=== PATIENT | male | born 1960 | race Caucasian/White ===

== ENCOUNTER 2020-12-04 15:14 | Outpatient (REF) | payer OTHER, SELFPAY | END 2020-12-04 15:15 | disposition home or self-care (01) | LOC: HO.BBR 15:14 | PROVIDERS: PCP Internal Medicine; Visit Provider Internal Medicine | DX: Z13.89 Encounter for screening for other disorder (principal) ==

== ENCOUNTER 2020-12-04 15:39 | Outpatient (REF) | payer OTHER, SELFPAY | END 2020-12-04 15:40 | disposition home or self-care (01) | LOC: HO.BBR 15:39 | PROVIDERS: PCP Internal Medicine; Visit Provider Internal Medicine | DX: Z13.89 Encounter for screening for other disorder (principal) ==

== ENCOUNTER 2021-01-02 14:31 | Outpatient (REF) | payer OTHER, SELFPAY | END 2021-01-02 14:32 | disposition home or self-care (01) | LOC: HO.BBR 14:31 | PROVIDERS: Visit Provider Internal Medicine | DX: Z13.89 Encounter for screening for other disorder (principal) ==

== ENCOUNTER 2021-02-06 15:23 | Outpatient (REF) | payer OTHER, SELFPAY | END 2021-02-06 15:24 | disposition home or self-care (01) | LOC: HO.BBR 15:23 | PROVIDERS: Visit Provider Internal Medicine | DX: Z13.89 Encounter for screening for other disorder (principal) ==

== ENCOUNTER 2021-03-30 13:04 | Outpatient (REF) | payer OTHER, SELFPAY | END 2021-03-30 13:05 | disposition home or self-care (01) | LOC: HO.BBR 13:04 | PROVIDERS: Visit Provider Internal Medicine | DX: Z13.89 Encounter for screening for other disorder (principal) ==

== ENCOUNTER 2021-04-25 12:08 | Outpatient (REF) | payer OTHER, SELFPAY | END 2021-04-25 12:09 | disposition home or self-care (01) | LOC: HO.BBR 12:08 | PROVIDERS: Visit Provider Internal Medicine | DX: Z13.89 Encounter for screening for other disorder (principal) ==

== ENCOUNTER 2021-05-23 11:49 | Outpatient (REF) | payer OTHER, SELFPAY | END 2021-05-23 11:50 | disposition home or self-care (01) | LOC: HO.BBR 11:49 | PROVIDERS: Visit Provider Internal Medicine | DX: Z13.89 Encounter for screening for other disorder (principal) ==

== ENCOUNTER 2021-07-04 13:04 | Outpatient (REF) | payer OTHER, SELFPAY | END 2021-07-04 13:05 | disposition home or self-care (01) | LOC: HO.BBR 13:04 | PROVIDERS: Visit Provider Internal Medicine | DX: Z13.89 Encounter for screening for other disorder (principal) ==

== ENCOUNTER 2021-08-01 11:08 | Outpatient (REF) | payer OTHER, SELFPAY | END 2021-08-01 11:09 | disposition home or self-care (01) | LOC: HO.BBR 11:08 | PROVIDERS: Visit Provider Internal Medicine | DX: Z13.89 Encounter for screening for other disorder (principal) ==

== ENCOUNTER 2022-02-20 14:55 | Outpatient (REF) | payer OTHER, SELFPAY | END 2022-02-20 14:56 | disposition home or self-care (01) | LOC: HO.BBR 14:55 | PROVIDERS: Visit Provider Internal Medicine | DX: D75.1 Secondary polycythemia (principal) | CPT/HCPCS: 85014; 85018; 99195 ==

== ENCOUNTER 2022-03-01 10:51 | Outpatient (REF) | payer OTHER, SELFPAY | END 2022-03-01 10:52 | disposition home or self-care (01) | LOC: HO.BBR 10:51 | PROVIDERS: Visit Provider Internal Medicine | DX: D75.1 Secondary polycythemia (principal) | CPT/HCPCS: 85018; 99195 ==

== ENCOUNTER 2022-03-08 15:07 | Outpatient (REF) | payer OTHER, SELFPAY | END 2022-03-08 15:08 | disposition home or self-care (01) | LOC: HO.BBR 15:07 | PROVIDERS: Visit Provider Internal Medicine | DX: D75.1 Secondary polycythemia (principal) | CPT/HCPCS: 85014; 85018; 99195 ==

== ENCOUNTER 2022-03-13 10:50 | Outpatient (REF) | payer OTHER, SELFPAY | END 2022-03-13 10:51 | disposition home or self-care (01) | LOC: HO.BBR 10:50 | PROVIDERS: Visit Provider Internal Medicine | DX: D75.1 Secondary polycythemia (principal) | CPT/HCPCS: 85018; 99195 ==

== ENCOUNTER 2022-03-21 07:54 | Outpatient (REF) | payer OTHER, SELFPAY | END 2022-03-21 07:55 | disposition home or self-care (01) | LOC: HO.BBR 07:54 | PROVIDERS: Visit Provider Internal Medicine | DX: D75.1 Secondary polycythemia (principal) | CPT/HCPCS: 85018; 99195 ==

== ENCOUNTER 2022-04-29 10:47 | Outpatient (REF) | payer OTHER, SELFPAY | END 2022-04-29 10:48 | disposition home or self-care (01) | LOC: HO.BBR 10:47 | PROVIDERS: Visit Provider Internal Medicine | DX: D75.1 Secondary polycythemia (principal) | CPT/HCPCS: 85018; 99195 ==

== ENCOUNTER 2022-05-21 13:41 | Outpatient (REF) | payer OTHER, SELFPAY | END 2022-05-21 13:42 | disposition home or self-care (01) | LOC: HO.BBR 13:41 | PROVIDERS: Visit Provider Internal Medicine | DX: D75.1 Secondary polycythemia (principal) | CPT/HCPCS: 85014; 85018; 99195 ==

== ENCOUNTER 2022-06-05 13:57 | Outpatient (REF) | payer OTHER, SELFPAY | END 2022-06-05 13:58 | disposition home or self-care (01) | LOC: HO.BBR 13:57 | PROVIDERS: Visit Provider Internal Medicine | DX: D75.1 Secondary polycythemia (principal) | CPT/HCPCS: 85014; 85018; 99195 ==

== ENCOUNTER 2023-02-04 11:06 | Outpatient (REF) | payer OTHER, SELFPAY | END 2023-02-04 11:07 | disposition home or self-care (01) | LOC: HO.BBR 11:06 | PROVIDERS: Visit Provider Internal Medicine | DX: D75.1 Secondary polycythemia (principal) | CPT/HCPCS: 85014; 85018; 99195 ==

== ENCOUNTER 2024-02-10 15:35 | Outpatient (REF) | payer MEDICARE, OTHER, SELFPAY | END 2024-02-10 15:36 | disposition home or self-care (01) | LOC: HO.BBR 15:35 | PROVIDERS: PCP Internal Medicine; Visit Provider Internal Medicine | DX: D75.1 Secondary polycythemia (principal) | CPT/HCPCS: 85014; 85018; 99195 ==

== ENCOUNTER 2024-04-05 13:50 | Outpatient (REF) | payer MEDICARE, OTHER, SELFPAY | END 2024-04-05 13:51 | disposition home or self-care (01) | LOC: HO.BBR 13:50 | PROVIDERS: PCP Internal Medicine; Visit Provider Internal Medicine | DX: D75.1 Secondary polycythemia (principal) | CPT/HCPCS: 85018; 99195 ==

== ENCOUNTER 2024-05-03 11:00 | Outpatient (REF) | payer MEDICARE, OTHER, SELFPAY | END 2024-05-03 11:01 | disposition home or self-care (01) | LOC: HO.BBR 11:00 | PROVIDERS: PCP Internal Medicine; Visit Provider Internal Medicine | DX: E83.110 Hereditary hemochromatosis (principal) | CPT/HCPCS: 85014; 85018; 99195 ==

== ENCOUNTER 2024-06-01 10:59 | Outpatient (REF) | payer MEDICARE, OTHER, SELFPAY | END 2024-06-01 11:00 | disposition home or self-care (01) | LOC: HO.BBR 10:59 | PROVIDERS: PCP Internal Medicine; Visit Provider Internal Medicine | DX: E83.110 Hereditary hemochromatosis (principal) | CPT/HCPCS: 85014; 85018; 99195 ==

== ENCOUNTER 2024-06-29 12:56 | Outpatient (REF) | payer MEDICARE, OTHER, SELFPAY ==
--- OUTSIDE RECORDS SUMMARY | 2024-06-29 14:05 | XMS_ITS | Clinical Summary ---
Author Organization [facility] ter Address [address] [place] [address] Phone Care Team Providers Care Garden Implement Mechanic Name Role Phone Ulysses Escalante MD Primary Care Provider Medical History Medical History Date Comments JD on CPAP DX:JD on CPAP Social History Tobacco Use Types Packs/Day Years Used Date Smoking Tobacco: Never Assessed Sex and Gender Information Value Date Recorded Sex Assigned at Male 04/30/2024 7:13 PM EST Legal Sex Male 8:02 AM EST Gender Identity Male 04/30/2024 7:13 PM EST Sexual Orientation Not on file Obstetrics History Last Filed Vital Signs Vital Sign Reading Time Taken Comments Blood Pressure 148/66 01/05/2024 1:53 PM EDT Sitting Left arm Pulse 85 01/05/2024 1:53 PM EDT Temperature - - Respiratory Rate - - Oxygen Saturation - - Inhaled Oxygen Concentration - - Weight 118 kg (259 lb 12.8 oz) 01/05/2024 1:53 PM EDT Height 180.3 cm (5' 11 ) 04/02/2022 10: 34 AM EST Body Mass Index 36.23 04/02/2022 10:34 AM EST Plan of Treatment Health Maintenance Due Date Last Done Comments Diabetes: Annual GFR (Glomerular Filtration Rate) 1958 DTaP,Tdap,and Td Vaccines (1 - Tdap) 1965 Diabetes: Annual Foot Exam 1968 Diabetes: Annual Retina Eye Exam 1968 Pneumococcal Vaccine: 50+ Years (1 of 2 - PCV) 1977 Pneumococcal Vaccine: Pediatrics (0 to 5 Years) and At-Risk Patients (6 to 64 Years) (1 of 2 - PCV) 1977 RSV Immunization Patients 60 + Years Old (1 - Risk 60-74 years 1-dose series) 2018 COVID-19 Vaccine (3 - Modern a risk series) 03/12/2021 02/12/2021, 01/09/2021 Cholesterol Screening (Lipid Panel) 04/27/2022 Colorectal Cancer Screening: Colonoscopy 04/27/2022 Depression Screening 04/27/2022 Hepatitis C Screening 04/27/2022 Medicare Annual Wellness Visit 04/27/2022 Social Influencers of Health Screening 04/27/2022 Falls Risk Assessment 10/28/2023 Influenza Vaccine (#1) 2024 3, 02/19/2022, 04/23/2021 Diabetes: Blood Sugar Contro l Test (HGBA1C) 04/28/2024 Hypertension/CHF/CAD Annual BMP Blood Test 04/28/2024 Diabetes: Annual Urine Albumin-Creatinine Ratio (uACR) 12/20/2024 12/21/2023 Zoster Vaccines Completed 02/19/2022, 11/21/2021 HIB Vaccines Aged Out No longer eligi ble based on patient's age to complete this topic HPV Vaccines Aged Out No longer eligi ble based on patient's age to complete this topic Hepatitis A Vaccines Aged Out No long er eligible based on patient's age to complete this topic Hepatitis B Vaccines Aged Out No long er eligible based on patient's age to complete this topic IPV Vaccines Aged Out No longer eligi ble based on patient's age to complete this topic MMR Vaccines Aged Out No longer eligi ble based on patient's age to complete this topic Meningococcal ACWY Vaccine Aged Out N o longer eligible based on patient's age to complete this topic Meningococcal B Vacine Aged Out No lo nger eligible based on patient's age to complete this topic RSV Immunization Patients Under 20 months Aged Out No longer eligible b ased on patient's age to complete this topic Varicella Vaccines Aged Out No longer eligible based on patient's age to complete this topic Procedures Procedure Name Priority Date/Time Associated Diagnosis Comments CBC WITH AUTO DIFFERENTIAL Routine 04/27/2024 2:04 PM EST Erythrocytosis CBC AND DIFFERENTIAL Routine 04/27/2024 2:04 PM EST Erythrocytosis from Last 3 Months Results * (ABNORMAL) CBC auto differential (04/27/2024 2:04 PM EST) [facility] WBC 7.4 4.8 - 10.8 K/mcL LAB HEMETOLOGY METHOD 04/27/2024 5:11 PM [facility] RBC 6.10(H) 4.50 - 5.50 M/mcL LAB HEMETOLOGY METHOD 04/27/2024 5:11 PM [facility] Hemoglobin 18.0(H) 13.5 - 17.5 g/dL LAB HEMETOLOGY METHOD 04/27/2024 5:11 PM [facility] Hematocrit 55.8(H) 42.0 - 54.0 % LAB HEMETOLOGY METHOD 04/27/2024 5:11 PM [facility] MCV 92.2 79.0 - 98.0 FL LAB HEMETOLOGY METHOD 04/27/2024 5:11 PM [facility] MCH 29.8 27.0 - 32.0 pcg LAB HEMETOLOGY METHOD 04/27/2024 5:11 PM [facility] MCHC 32.3 32.0 - 37.0 g/dL LAB HEMETOLOGY METHOD 04/27/2024 5:11 PM [facility] RDW 15.0 11.0 - 15.0 % LAB HEMETOLOGY METHOD 04/27/2024 5:11 PM [facility] Platelets 163 130 - 400 K/mcL LAB HEMETOLOGY METHOD 04/27/2024 5:11 PM [facility] MPV 11.4(H) 7.0 - 11.0 FL LAB HEMETOLOGY METHOD 04/27/2024 5:11 PM [facility] NRBC 0.0 <1.0 % LAB HEMETOLOGY METHOD 04/27/2024 5:11 PM [facility] NRBC Absolute 0.00 <0.10 K/mcL LAB HEMETOLOGY METHOD 04/27/2024 5:11 PM [facility] Neutrophils Relative 67.4 % LAB HEMETOLOGY METHOD 04/27/2024 5:11 PM [facility] Lymphocytes Relative 19.8 % LAB HEMETOLOGY METHOD 04/27/2024 5:11 PM [facility] Monocytes Relative 9.0 % LAB HEMETOLOGY METHOD 04/27/2024 5:11 PM [facility] Eosinophils Relative 2.2 % LAB HEMETOLOGY METHOD 04/27/2024 5:11 PM [facility] Basophils Relative 0.8 % LAB HEMETOLOGY METHOD 04/27/2024 5:11 PM [facility] Immature Granulocytes Relative 0.8 % LAB HEMETOLOGY METHOD 04/27/2024 5:11 PM [facility] Neutrophils Absolute 4.97 1.50 - 7.00 K/mcL LAB HEMETOLOGY METHOD 04/27/2024 5:11 PM [facility] Lymphocytes Absolute 1.46 1.00 - 5.00 K/mcL LAB HEMETOLOGY METHOD 04/27/2024 5:11 PM [facility] Monocytes Absolute 0.66 0.20 - 1.00 K/mcL LAB HEMETOLOGY METHOD 04/27/2024 5:11 PM [facility] Eosinophils Absolute 0.16 0.00 - 0.50 K/mcL LAB HEMETOLOGY METHOD 04/27/2024 5:11 PM [facility] Basophils Absolute 0.06 0.00 - 0.20 K/mcL LAB HEMETOLOGY METHOD 04/27/2024 5:11 PM [facility] Immature Granulocytes Absolute 0.06(H) 0.00 - 0.03 K/mcL LAB HEMETOLOGY METHOD 04/27/2024 5:11 PM EST [facility] Blood Venous blood specimen / Unknown Venipuncture / Unknown 04/27/2024 2:04 PM EST 04/27/2024 4:39 PM EST Santos Holt MD LAB BLOOD ORDERABLE S Final Result [facility] [address] [place] [address], [place] [phone] from Last 3 Months Insurance MEDICARE [facility] Care Teams Garden Implement Mechanic Relationship Specialty Start Date End Date Ulysses Escalante MD [address] [place] [phone] PCP - General Internal Medicine 10/05/13
--- OUTSIDE RECORDS SUMMARY | 2024-06-29 14:05 | XMS_ITS | Clinical Summary ---
Author Organization [facility] Address [address] [place] [address] Care Team Providers Care Health Workers Name Role Phone Ulysses Escalante MD Primary Care Provider Allergies Active Allergy Reactions Criticality Noted Date Comments Pollen Extract 06/13/2017 Medications Medication Sig Dispensed Refills Start Date End Date Status metFORMIN (GLUCOPHAGE) tablet 500 mg Take 2 tablets (1,000 mg total) by mouth 2 (two) times a day with meals. 0 Active insulin glargine (LANTUS) injection 100 units/mL Inject 60 Units under the skin every night at bedtime. 0 Active insulin NPH (HumuLIN N,NovoLIN N) injection 100 units/mL Inject 40 Units under the skin 2 (two) times a day before breakfast and dinner. 0 Active pravastatin (PRAVACHOL) tablet 40 mg Take 1 tablet (40 mg total) by mouth daily. 0 Active Multiple Vitamin (MULTI VITAMIN DAILY PO) Take by mouth daily. 0 Active losartan (COZAAR) tablet 50 mg Take 0.5 tablets (25 mg total) by mouth daily. 0 Active aspirin 325 MG tablet Take 1 tablet (325 mg total) by mouth daily. 0 Active Diphenhydramine-Phenyl ephrine ([employer] ALLERGY-D PO) Take by mouth daily. 0 Active Multiple Minerals (UTLKSFF-WMTECUTBN-ARK C) TABS Take 371 mg by mouth 2 (two) times a day. 0 Active dapagliflozin (FARXIGA) tablet 5 mg Take 5 mg by mouth daily. 0 Active modafinil (PROVIGIL) 200 MG tablet Take 1 tablet (200 mg total) by mouth daily. 0 Active dulaglutide (Trulicity) 1.5 MG/0.5ML subcutaneous pen-injector Inject under the skin. 0 Active Semaglutide (OZEMPIC, 1 MG/DOSE, SC) Inject under the skin. 0 Active insulin lispro (HumaLOG) injection 100 units/mL Inject 35 Units under the skin 3 (three) times a day before meals. 35-45 units 0 Active Cyanocobalamin (VITAMIN B 12 PO) Take by mouth. 0 Act selma Active Problems Problem Noted Date Diagnosed Date Low serum iron 05/05/2023 Erythrocytosis 06/14/2019 Obstructive sleep apnea 06/14/2019 Polycythemia vera 06/14/2019 Social History Tobacco Use Types Packs/Day Years Used Date Smoking Tobacco: Never Assessed Tobacco Cessation:Counseling Given: Not Answered Sex and Gender Information Value Date Recorded Sex Assigned at Not on file Gender Identity Not on file Sexual Orientation Not on file Job Start Date Occupation Industry Not on file Not on file Not on file Last Filed Vital Signs Vital Sign Reading Time Taken Comments Blood Pressure 148/66 01/05/2024 1:53 PM EDT Pulse 85 01/05/2024 1:53 PM EDT Temperature 36.5 ??C (97.7 ??F) 01/05/2024 1:53 PM ED T Respiratory Rate - - Oxygen Saturation 97% 01/05/2024 1:53 PM EDT Inhaled Oxygen Concentration - - Weight 117.8 kg (259 lb 12.8 oz) 01/05/2024 1:53 PM EDT Height 180.3 cm (5' 11 ) 12/06/2020 2:54 PM EDT Body Mass Index 36.23 12/06/2020 2:54 PM EDT Plan of Treatment Health Maintenance Due Date Last Done Comments Hepatitis C Screening 1958 COVID-19 Vaccine (#1) 10/28/1963 Pneumococcal Vaccine (1 of 2 - PCV) 1964 Pneumococcal Vaccine (1 of 2 - PCV) 1964 Depression Screening 1970 BMI Counseling 1976 Preventative Health Evaluation 1976 DTap / Tdap / Td (1 - Tdap) 1977 Shingrix-Zoster Vaccine (1 of 2) 1977 Colon Cancer Screening (Colonoscopy) 10/28/2003 Fall Risk Assessment 10/28/2023 Influenza Vaccine (#1) 2024 RSV Adult > 60+ Yrs or Pregn ant (1 - 1-dose 75+ series) 2033 Hepatitis B Vaccines Aged Out No long er eligible based on patient's age to complete this topic RSV Ped < 20 months Aged Out No longe r eligible based on patient's age to complete this topic Care Teams Health Workers Relationship Specialty Start Date End Date Ulysses Escalante MD PCP - General Internal Medicine 04/24/17
--- OUTSIDE RECORDS SUMMARY | 2024-06-29 14:05 | XMS_ITS | Data Portability ---
Author Organization [facility], Patient's Home Address [address] [facility] [place] [id number] [place] [address] Care Team Providers Care Health Safety Manager Name Role Phone ANDRESSA REESE Primary Care Provider MARIEL BELTRAN [employer] Age Program Teacher Assessment No assessment recorded. Plan of Treatment Reminders Order Date Submit Date Provider Last Modified By Organization Details Last Modified Time Details Appointments None record ed. Lab None record ed. Referral None record ed. Procedures None record ed. Surgeries None record ed. Imaging None record ed. Medication Orders None record ed. Patient TargetsNo targets recorded. Patient InstructionsNo instructions recorded. Reason for Referral None Reported. Results Created Date Observation Date Name Description Value Unit Range Abnormal Flag Note LastModifiedBy Organization Detail LastModifiedTime 11/13/19 24 11/12/2023 optic al coher ence tomog angelique, optic nerve No observ ation record ed. [email or web address] Not Available 11/12 10:32:03 Result Notes None recorded. Procedures Surgical History Date Name Laterality Status Provider Name and Address Organization Details Recorded Time Retinal Detachment Repair completed Amita Wetzel [facility] 11/12/2023 13:30:21 4 [facility] 11/12/2023 13:30:00 Imaging Results Imaging Date Name Status LastModified by Organiz ation Details LastModified Time 11/12/2023 optical coherence tomogram, optic nerve active [email or web address] Information not available 11/13/2023 10:32:03 Procedure Notes None recorded. Medical Equipment None Reported. Medications Name Sig Start Date Stop Date Status Note LastModified by Organization Details LastModified Time azithromycin 250 mg tablet TAKE 2 TABLETS BY MOUTH TODAY, THEN TAKE 1 TABLET DAILY FOR 4 DAYS DIRECTED active Not Available Not Available No t Available pravastatin 40 mg tablet TAKE 1 TABLET BY MOUTH EVERY DAY active Not Available Not Available No t Available prednisone 20 mg tablet TAKE 3 TABLETS DAILY FOR 2 DAYS THEN 2 FOR 2 DAYS THEN 1 FOR 2 DAYS THEN 0.5 FOR 2 DAYS active Not Available Not Available No t Available doxycycline monohydrate 100 mg tablet PLEASE SEE ATTACHED FOR DETAILED DIRECTIONS active Not Available Not Available N ot Available lorazepam 0.5 mg tablet TAKE 1-2 TABLET AT BEDTIME NEEDED ORALLY ONCE A DAY 1 DAYS active Not Available Not Available No t Available metformin 1,000 mg tablet TAKE 1 TABLET BY MOUTH TWICE A DAY active Not Available Not Available No t Available losartan 25 mg tablet TAKE 1 TABLET BY MOUTH EVERY DAY FOR 90 DAYS active Not Available Not Available No t Available gabapentin 300 mg capsule TAKE 1 CAPSULE BY MOUTH EVERY DAY FOR 30 DAYS active Not Available Not Available No t Available methylpredni solone 4 mg tablets in a dose pack TAKE 6 TABLETS ON DAY 1 DIRECTED ON PACKAGE AND DECREASE BY 1 TAB EACH DAY FOR A TOTAL OF 6 DAYS active Not Available Not Available No t Available ipratropium bromide 42 mcg (0.06 %) nasal spray SPRAY 2 SPRAYS INTO EACH NOSTRIL 3 TIMES A DAY active Not Available Not Available Not Available fluticasone propionate 50 mcg/actuatio n nasal spray,suspen natalee USE 1 SPRAY IN EACH NOSTRIL DAILY NEEDED active Not Available Not Available No t Available clindamycin 1 % lotion PLEASE SEE ATTACHED FOR DETAILED DIRECTIONS active Not Available Not Available N ot Available Novolog FlexPen U-100 Insulin aspart 100 unit/mL (3 mL) subcutaneous PLEASE SEE ATTACHED FOR DETAILED DIRECTIONS active Not Available Not Available N ot Available Lantus Solostar U-100 Insulin 100 unit/mL (3 mL) subcutaneous pen INJECT 60 UNITS UNDER THE SKIN DAILY active Not Available Not Available No t Available armodafinil 250 mg tablet TAKE 1 TABLET BY MOUTH EVERY DAY active Not Available Not Available No t Available testosterone 1.62 % (20.25 mg/1.25 gram) transdermal gel packet PLACE 1 PACKET ONTO THE SKIN DAILY. active Not Available Not Available No t Available Farxiga 5 mg tablet TAKE 1 TABLET BY MOUTH EVERY DAY active Not Available Not Available No t Available FreeStyle Hardik 14 Day Sensor kit USE INSTRUCTED TO MONITOR GLUCOSE, CHANGE EVERY 14 DAYS active Not Available Not Available No t Available Ozempic 1 mg/dose (4 mg/3 mL) subcutaneous pen injector INJECT 1 MG UNDER THE SKIN EVERY 7 DAYS active Not Available Not Available No t Available Paxlovid 300 mg (150 mg x 2)-100 mg tablets in a dose pack TAKE 3 TABLETS BY MOUTH TWICE A DAY FOR 5 DAYS active Not Available Not Available No t Available Ozempic 2 mg/dose (8 mg/3 mL) subcutaneous pen injector INJECT 2 MG SUBCUTANEOU SLY EVERY 7 DAYS active Not Available Not Available No t Available Dexcom G7 Coke Crane Operator USE DIRECTED TO MONITOR GLUCOSE active Not Available Not Available No t Available Dexcom G7 Sensor device USE DIRECTED TO MONITOR GLUCOSE, CHANGE EVERY 10 DAYS active Not Available Not Available No t Available Vitals None Recorded Social History None recorded. Functional Status None recorded. Mental Status None recorded. Family History Nothing Reported. Medical History No medical history recorded. Past Encounters Encounter ID Performer Location Encounter Start Date Encounter Closed Date Diagnosis/Indication Diagnosis SNOMED-CT Code Diagnosis ICD10 Code Diagnosis Note [id number] Vic Anderson MD MAIN OFFICE [place] [address] [facility] [address] [place] [address] 11/12/2023 12:46:00 11/12/2023 14:29:10 Hemorrhage of left vitreous body 8598012032 95789 H43.12 patient saw a hair in left eye 2 months agohad retinal laser x 2 at outside officevisi on has never recovered and hasn't had f/ugood red reflex, retina appears attached but hazy view refer to retina DAPHNIE for evaluation /treatment Amblyopia of right eye 2022379796 09056 H53.001 left eye was always dominant eye 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 9855128176 109 E11.3599 NVE ODunable to view [facility] Concerns Section Related Observation LastModified by Organization Detai ls LastModified Time None Recorded Concern Status LastModified by Organization Details LastModified Time None Recorded Advance Directives Directive None Recorded Payers Encounter Date Sequence Insurance Name Policy Number Policy Ozuna Covered Member ID Ozuna Member ID Guarantor Name 11/12/2023 1 MEDICARE B-[place]: [facility] [employer] Coy Garza [id number] Coy Garza 11/12/2023 2 UNICARE - SENIOR SERVICES PLAN F (MEDICARE SUPPLEMENT) [id number] Coy Garza [id number] Coy Garza
== END 2024-06-29 12:57 | disposition home or self-care (01) ==
LOC: HO.BBR 12:56
PROVIDERS: PCP Internal Medicine; Visit Provider Internal Medicine
DX: E83.110 Hereditary hemochromatosis (principal)
CPT/HCPCS: 85014; 85018; 99195

== ENCOUNTER 2024-07-28 14:46 | Outpatient (REF) | payer MEDICARE, OTHER, SELFPAY ==
--- OUTSIDE RECORDS SUMMARY | 2024-07-28 17:24 | XMS_ITS | Clinical Summary ---
Author Organization [facility] ter Address [address] [place] [address] Phone Care Team Providers Care Desktop Manager Name Role Phone Ulysses Escalante MD Primary Care Provider Encounters Date Type Department Care Team Description 07/20/2024 Telephone [facility] Hematology Oncology [address] [place] [phone] Sylvia Mauro MA from Last 3 Months Medical History Medical History Date Comments JD [...] Diabetes: Annual GFR (Glomerular Filtration Rate) 1958 Diabetes: Annual Foot Exam 1968 Diabetes: Annual Retina Eye Exam 1968 DTaP,Tdap,and Td Vaccines (1 - Tdap) 1977 Pneumococcal Vaccine: 50+ Years (1 of 2 [...] on patient's age to complete this topic Insurance MEDICARE [facility] Care Teams Desktop Manager Relationship Specialty Start Date End Date Ulysses Escalante MD [address] [place] [phone] PCP - General Internal Medicine 10/05/13
--- OUTSIDE RECORDS SUMMARY | 2024-07-28 17:24 | XMS_ITS ---
Author Organization [facility] Address [address] [place] [address] Care Team Providers Care Home Health Occupational Therapist Name Role Phone Ulysses Escalante MD Primary Care Provider Unavail Tanner Art Unavailable [phone] Encounters Encounter Location Date Provider Diagnosis [address] [address] 04/21/2024 Tanner Tamayo Plan Of Treatment Next Appt Details Provider Name:Tanner Tamayo , 10/14/2024 03:45:00 PM, [address] [place] [address], [phone], Progress Notes * Coy LORENZ LDOB:[birth year] (63 yo M)Acc No.[id number]:04/21/2024 Progress Note Patient:?Coy LORENZ Provider:?Tanner Tamayo DPM :1960???Age:63 Y???Sex:Male Ishan e:04/21/2024 Address:[address], [place] Pcp:Ulysses Escalante MD Subjective: * Chief Complaints: * ??? * Medical History:? Objective: * Vitals:? Assessment: Plan: * Treatment: * Images: * The named appointment provid er may or may not be the originator of this progress note, and it is not deemed complete until electronically signed by the appointment provider. Sign off status: Pending * Provider:?Tanner Tamayo DPM Date:?2023 Generated for Wes matthews/Elvia/Mick on:?07/28/2024 05:24 PM EDT
--- OUTSIDE RECORDS SUMMARY | 2024-07-28 17:24 | XMS_ITS | Encounter Summary ---
Author Organization [facility] Address [address] [place] [address] Care Team Providers Care Food Tester Name Role Phone Ulysses Escalante MD Primary Care Provider [phone] Encounter Details Date Type Department Care Team (Late st Contact Info) Description 07/20/[address] [facility] Hematology Oncology [address] [place] [address] Sylvia Mauro [place] Social History Tobacco Use Types Packs/Day Years Used Date Smoking Tobacco: Never Assessed Sex and Gender Information Value Date Recorded Sex Assigned at Male 04/30/2024 7:13 PM EST Legal Sex Male 8:02 AM EST Gender Identity Male 04/30/2024 7:13 PM EST Sexual Orientation Not on file documented as of this encounter Plan of Treatment Not on file documented as of this encounter Visit Diagnoses Not on filedocumented in this encounter Care Teams Food Tester Relationship Specialty Start Date End Date Ulysses Escalante MD [address] [place] [phone] PCP - General Internal Medicine 10/05/13 documented as of this encounter
--- OUTSIDE RECORDS SUMMARY | 2024-07-28 17:24 | XMS_ITS ---
Author Organization [facility] Address [address] [place] [address] Care Team Providers Care Loss Mitigation Specialist Name Role Phone Ulysses Escalante MD Primary Care Provider Unavail able Tanner Tamayo Unavailable [phone] Allergies Allergen (clinical drug ingredient) Drug/Non Drug Allergy documented on EMR Reaction Allergy Type Onset Date Status environmental (uncoded) diarrhea Allergy Active REASON FOR VISIT At Risk Footcare Medications Medication SIG (Take, Route, Frequency, Duration) Notes Start Date End Date Status B Complex Not-Taking traMADol HCl 50 MG 1 tablet as needed Orally every 6 hrs Not-Taking Invokana Not-Taking Lisinopril 10 MG 1 tablet Orally Once a day Not-Taking CeleBREX Not-Taking Levemir 100 UNIT/ML as directed Subcutaneous 50-55 units before bed Not-Taking Modafinil 100 MG 1 tablet in the morning Orally Once a day Not-Taking Aspirin 325 MG 1 tablet as needed Orally once daily Not-Taking Semglee 60 units before bed Not-Taking Voltaren 1 % as directed Transdermal Four times a day for 30 days 02/04/2019 Not-Taking Vitamin D Not-Taking Modafinil 300MG Not-Taking Trulicity Not-Taking Fexofenadine HCl 180 MG 1 tablet Swallow whole with water; do not take with fruit juices. Orally Once a day for 30 day(s) Not-Taking HumaLOG sliding scale Not-Taking Calcium + D 600 mg 1 tablet with food Orally Once a day for 30 day(s) Not-Taking Mucinex Not-Taking Extra Depth Orthopedic Shoes (1 Pair) with Customized Heat Molded Multidensity Innersoles (3 Pair) as directed Dx: IDDM/Polyneuropathy (E10.42), Hammertoe Foot Deformity (M20.41,M20.42), Preulcerative Skin Lesion(s) (L85.1) Active No Doz Maximum Strength Not-Taking Armodafinil 250 MG 1 tablet in the morning Orally Once a day Not-Taking NovoLOG 100 UNIT/ML as directed Injection Active Ozempic Active Pravastatin Sodium 40 MG 1 tablet Orally Once a day for 30 day(s) Active Vitamin B12 Active Multivitamins as directed Orally Active Farxiga Active Gabapentin 300 MG 1 capsule Orally at bedtime Active metFORMIN HCl 2000 mg 1 tablet with meal s Orally Twice a day for 30 day(s) Active Lantus 100 UNIT/ML 0.1 ml Subcutaneous Once a day for 30 days 10 Units Active Losartan Potassium 25 MG 1 tablet Orally Active Calcium Magnesium Ac tive Social History Tobacco Use: Social History Observation Description Date Details (start date - stop date) Never Smoker NA - NA Tobacco Use/Smoking Question Answer Notes Are you a: nonsmoker Additional Findings: Tobacco Non-User Current no n-smoker Alcohol Screen Question Answer Notes Did you have a drink containing alcohol in the p ast year? No Points 0 Interpretation Negative Tobacco use other than smoking: Question Answer Notes Are you an other tobacco user? No Vital Signs Height 6ft in 04/30/2024 Weight 255 lbs 04/30/2024 BMI 34.58 kg/m2 04/30/2024 Blood pressure systolic 130 mm Hg 04/30/20 24 Blood pressure diastolic 70 mm Hg 024 Procedures Procedure Date Ordered Date Performed Result Body Sit e 76984-[id number] NAIL, 6 OR MORE 04/30/2024 N/A 43396-MKWG SKIN LESIONS, OVER 4 04/30/2024 N/A Encounters Encounter Location Date Provider Diagnosis [facility] [address] [place] [address] 04/30/2024 Tanner Tamayo Type 1 diabetes mellitus with diabetic polyneuropathy E10.42 and Tinea unguium B35.1 Assessments Encounter Date Diagnosis (ICD Code) Assessment Notes Treatment Notes Treatment Clinical Notes Section Notes 04/30/2024 Type 1 diabetes mellitus with diabetic polyneuropathy (ICD-10 - E10.42) 04/30/2024 Tinea unguium (ICD-10 - B35.1) 04/30/2024 Other Plan Of Treatment Pending Test Test Name Order Date [id number] NAIL, 6 OR MORE 04/30/2024 79110-SOMG SKIN LESIONS, OVER 4 04/30/20 24 Next Appt Details Follow Up: prn, Reason: Provider Name:Tanner Tamayo , 10/14/2024 03:45:00 PM, [address] , [address], [place], [address], Procedure Notes * Category Sub-Category Detail Notes Debride Nail 6-10 Nail debridement Due to the cl inical pathology outlined in the exam findings, performance of this nail treatment is medically necessary as its management by an unskilled/untrained nonprofessional would put this patients foot and overall health at risk. Therefore, debridement to affected nail(s), as described in exam ( TA, T1, T2, T3, T4, T5, T6, T7, T8, T9), was performed exclusively by the physician of record to reduce/remove overall nail length, girth, thickness, subungual debris, and necrotic tissue, by manual and/or electrical means through the use of a nail nipper and/or dremel-type head wood grinder, to a more viable healthy nail plate or bed tissue 6-10 nails in total. Silver nitrate was used for any petechial bleeding as necessary. Definitive antifungal treatment options, both pharmaceutical and surgical, have been reviewed and discussed with the patient. The patient solely prefers the use of intermittent/as needed professional debridement services for their nail condition and understands the need for additional periodic treatments to maintain effectiveness in symptomatic relief - 03851 Keratoma Treatment Parring or Cutting o f Benign Hyperkeratotic Lesion(s) (-57) More than 4 Lesions - Due to the at risk nature of the patients medical condition as documented in the exam findings, performance of this keratoderma treatment is medically necessary as its management by an unskilled/untrained nonprofessional would put this patients foot and overall health at risk. Therefore, the benign hyperkeratotic lesions, ( 6) in total, locations as stated and described in the exam ( SUB MTH (s), 1, B/L , SUB MTH (s), 2, B/L, Plantar Heel(s), B/L), were pared, and/or cut utilizing a sterile 15 blade, tissue nippers, and/or power dremel instrumentation by the physician of record - 16787 Progress Notes * Coy LORENZ LDOB:[birth year] (63 yo M)Acc No.[id number]:04/30/2024 Progress Note Patient:Coy GUERRA Provider:?Tanner Tamayo DPM :1960???Age:63 Y???Sex:Male Ishan e:04/30/2024 Address:[facility] [address] , [place], [place] Pcp:Ulysses Escalante MD Subjective: * Chief Complaints: * ???At Risk Footcare * HPI: ???At Risk footcare:?Pt States Last PCP Visit:?Date?03/16/2024 * ROS:?General/Constitutional:?Nausea?denies.?Vomiting?denies.?Hunger Thirst?denies.?Loss appetite?denies.?Chills?denies.?Fatigue?denies.?Fever?denies.?Night Sweats?denies.?Unexplained weight loss?denies.?Ophthalmologic:?Blurred vision?denies.?Red eye?denies.?HEENTM:?Dentures?denies.?Dizziness?denies.?Glasses/contacts?denies.?Retinopathy?de nies.?Blurred/double vision?denies.?TMJ?denies.?Discharge/drainage?denies.?Implants?denies.?Hard of hearing admits.?Difficulty chewing/swallowing/speaking?denies.?Nose bleeds?denies.?Sore mouth?denies.?Swollen glands?denies.?Respiratory:?On Oxygen?denies.?Pneumonia/pleurisy?denies.?Bronchitis?denies.?Emphysema?denies.?C oughing?denies.?Cough blood?denies.?Shortness of breath?denies.?Wheezing?denies.?Cardiovascular:?Pacemaker?denies.?MVP?denies.?WPW?denies.?CHF?denies.?Heart attack?denies.?Septal defect?denies.?Rapid beat?denies.?Chest pain ?denies.?Atrial Fib.?denies.?Murmur/Palpitations?denies.?Gastrointestinal:?Hemorrhoids?denies.?Stomach/Abdominal pain?denies.?Dark blood stool?denies.?Irritable bowel ?denies.?Constipation?denies.?Diarrhea?denies.?Vomiting?denies.?Hematology:?Swelling?denies.?Bruising??admits, on aspirin.?Bleeding problem??admits, on anticoagulants.?Genitourinary:?Blood urine?denies.?Frequent/Painfu/urination/bladder control?denies.?Kidney stones?denies.?Infection (UTI)?denies.?Nephropathy?denies.?Musculoskeletal:?Hammertoes?admits.?Bunions?denies.?Scoliosis/kyphosis?denies.?Muscle cramps / walking?denies.?Generalized aches and pains?denies.?Weakness?denies.?Integ.:?Rinaldi?denies.?Scars?denies.?Corns/calluses?admits.?Ingrown nails?admits.?Painful nails?denies.?Rashes?denies.?Neurologic:?Difficulty sleeping?denies.?Bipolar?denies.?Brain disorder?denies.?Balance trouble?denies.?Confusion?denies.?Fainting/blackouts?denies.?Headache?denies.?Tr emors?denies.? * Medical History:? * Surgical History:?cholecyste ctomy 2002kidney stones 2002,2003,2004eye surgery 11/2023 * Hospitalization/Major Diagno stic Procedure:?[facility] Chest Pain 06/26/11[facility]- Tendon surgery right middle finger 08/29/14[facility]- MRI for herniated disc 02/24/15[facility] - 2x for back and 1 for tooth 01/2016[facility]- had a fall 05/30[facility]- Left eye 11/24/23 * Family History:?Mother: dece ased, tumor on lungs.?Father: .?Daughter(s): alive.?Siblings: alive, skin cancer, diagnosed with Other malignant neoplasm of unspecified site.?1 daughter(s) . .? * Social History:?Tobacco Use:?Tobacco Use/Smoking?Are you a:?nonsmoker ?Additional Findings: Tobacco Non-User?Current non-smoker ?Tobacco use other than smoking?Are you an other tobacco user??No ???Drugs/Alcohol:?Drugs?Have you used drugs other than those for medical reasons in the past 12 months??No ?Alcohol Screen?Did you have a drink containing alcohol in the past year??No ?Points?0 ?Interpretation?Negative ???Miscellaneous:?Caffeine: yes, frequency:, 1-2 cups per day. ?Children: yes, one. ?Exercise: no. ?Marital status: . 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 * Medications:?TakingCalcium M agnesium Farxiga Gabapentin 300 MG Capsule 1 capsule Orally at bedtime Lantus 100 UNIT/ML Solution 0.1 ml Subcutaneous Once a day , Notes to Pharmacist: 10 UnitsLosartan Potassium 25 MG Tablet 1 tablet Orally metFORMIN HCl 2000 mg Tablet 1 tablet with meals Orally Twice a day Multivitamins Tablet as directed Orally NovoLOG 100 UNIT/ML Solution as directed Injection Ozempic Pravastatin Sodium 40 MG Tablet 1 tablet Orally Once a day Vitamin B12 Extra Depth Orthopedic Shoes (1 Pair) with Customized Heat Molded Multidensity Innersoles (3 Pair) as directed Dx: IDDM/Polyneuropathy (E10.42), Hammertoe Foot Deformity (M20.41,M20.42), Preulcerative Skin Lesion(s) (L85.1) Taking Calcium Magnesium Taking Farxiga Taking Gabapentin 300 MG Capsule 1 capsule Orally at bedtime Taking Lantus 100 UNIT/ML Solution 0.1 ml Subcutaneous Once a day , Notes to Pharmacist: 10 UnitsTaking Losartan Potassium 25 MG Tablet 1 tablet Orally Taking metFORMIN HCl 2000 mg Tablet 1 tablet with meals Orally Twice a day Taking Multivitamins Tablet as directed Orally Taking NovoLOG 100 UNIT/ML Solution as directed Injection Taking Ozempic Taking Pravastatin Sodium 40 MG Tablet 1 tablet Orally Once a day Taking Vitamin B12 Taking Extra Depth Orthopedic Shoes (1 Pair) with Customized Heat Molded Multidensity Innersoles (3 Pair) as directed Dx: IDDM/Polyneuropathy (E10.42), Hammertoe Foot Deformity (M20.41,M20.42), Preulcerative Skin Lesion(s) (L85.1) Not-Taking/PRNCalcium + D 600 mg Tablet 1 tablet with food Orally Once a day Mucinex No Doz Maximum Strength Armodafinil 250 MG Tablet 1 tablet in the morning Orally Once a day Fexofenadine HCl 180 MG Tablet 1 tablet Swallow whole with water; do not take with fruit juices. Orally Once a day HumaLOG sliding scale Vitamin D Modafinil , Notes to Pharmacist: 300MGTrulicity Aspirin 325 MG Tablet Delayed Release 1 tablet as needed Orally once daily Semglee , Notes to Pharmacist: 60 units before bedLevemir 100 UNIT/ML Solution as directed Subcutaneous , Notes to Pharmacist: 50-55 units before bedModafinil 100 MG Tablet 1 tablet in the morning Orally Once a day Voltaren 1 % Gel as directed Transdermal Four times a day CeleBREX Invokana Lisinopril 10 MG Tablet 1 tablet Orally Once a day traMADol HCl 50 MG Tablet 1 tablet as needed Orally every 6 hrs B Complex Medication List reviewed and reconciled with the patientNot-Taking/PRN Calcium + D 600 mg Tablet 1 tablet with food Orally Once a day Not-Taking/PRN Mucinex Not-Taking/PRN No Doz Maximum Strength Not-Taking/PRN Armodafinil 250 MG Tablet 1 tablet in the morning Orally Once a day Not- Taking/PRN Fexofenadine HCl 180 MG Tablet 1 tablet Swallow whole with water; do not take with fruit juices. Orally Once a day Not-Taking/PRN HumaLOG sliding scale Not- Taking/PRN Vitamin D Not-Taking/PRN Modafinil , Notes to Pharmacist: 300MGNot-Taking/PRN Trulicity Not-Taking/PRN Aspirin 325 MG Tablet Delayed Release 1 tablet as needed Orally once daily Not-Taking/PRN Semglee , Notes to Pharmacist: 60 units before bedNot-Taking/PRN Levemir 100 UNIT/ML Solution as directed Subcutaneous , Notes to Pharmacist: 50-55 units before bedNot-Taking/PRN Modafinil 100 MG Tablet 1 tablet in the morning Orally Once a day Not-Taking/PRN Voltaren 1 % Gel as directed Transdermal Four times a day Not-Taking/PRN CeleBREX Not-Taking/PRN Invokana Not-Taking/PRN Lisinopril 10 MG Tablet 1 tablet Orally Once a day Not-Taking/PRN traMADol HCl 50 MG Tablet 1 tablet as needed Orally every 6 hrs Not-Taking/PRN B Complex Medication List reviewed and reconciled with the patient * Allergies:?environmental: jordan osman[Allergies Verified] Objective: * Vitals:?Ht:6ft, Wt:255, BMI: 34.58, Shoe size:10.5W, BP:130/70mm Hg, BS:153, Ht- cm: 182.88 cm, Wt-k.67 kg. * ???Past Orders: ???Lab:HEMOGLOBIN A1C (GLYCO HEMOGLOBIN) (Order Date - 04/30/2024) (Collection Date & Time - 03/19/2024 01:19 PM) ? Value Reference Range ?TOTAL HEMOGLOBIN (HGBA1C) 6.7 * Examination: ???Neurological: ?SENSORY:?Neurological exam demonstrates, reduced light touch sensation, reduced sharp/dull pin prick discrimination , B/L, 5.07 monofilament test performed at plantar aspects of 5 varied sites per foot shows sensation, reduced , B/L, Pt still relates, pins and needles sensation, paresthesia, Forefoot, especially in the evening, B/L.?Nails: ?NAILS are:?Elongated, overgrown, dystrophic, lytic, greater than 3mm thick, discolored and friable with crumbly malodorous subungual debris, with pain on palpation, TA, T1, T2, T3, T4, T5, T6, T7, T8, T9.?Dermatologic: ?SKIN FINDINGS:?Skin exam reveals Keratotic lesion(s) located at, SUB MTH (s), 1, B/L , SUB MTH (s), 2, B/L, Plantar Heel(s), B/L.? Assessment: * Assessment: 1.?Type 1 diabetes mellitus with diabetic polyneuropathy - E10.42 (Primary)???2.?Tinea unguium - B35.1??? Plan: * Treatment: * Procedures:?Debride Nail 6-10:?Nail debridement?Due to the clinical pathology outlined in the exam findings, performance of this nail treatment is medically necessary as its management by an unskilled/untrained nonprofessional would put this patients foot and overall health at risk. Therefore, debridement to affected nail(s), as described in exam (?TA, T1, T2, T3, T4, T5, T6, T7, T8, T9), was performed exclusively by the physician of record to reduce/remove overall nail length, girth, thickness, subungual debris, and necrotic tissue, by manual and/or electrical means through the use of a nail nipper and/or dremel-type head wood grinder, to a more viable healthy nail plate or bed tissue 6- 10 nails in total. Silver nitrate was used for any petechial bleeding as necessary. Definitive antifungal treatment options, both pharmaceutical and surgical, have been reviewed and discussed with the patient. The patient solely prefers the use of intermittent/as needed professional debridement services for their nail condition and understands the need for additional periodic treatments to maintain effectiveness in symptomatic relief - 34936.?Keratoma Treatment:?Parring or Cutting of Benign Hyperkeratotic Lesion(s)?(-57) More than 4 Lesions - Due to the at risk nature of the patients medical condition as documented in the exam findings, performance of this keratoderma treatment is medically necessary as its management by an unskilled/untrained nonprofessional would put this patients foot and overall health at risk. Therefore, the benign hyperkeratotic lesions, ( 6) in total, locations as stated and described in the exam (?SUB MTH (s),?1,?B/L?,?SUB MTH (s),?2,?B/L,?Plantar Heel(s),?B/L), were pared, and/or cut utilizing a sterile 15 blade, tissue nippers, and/or power dremel instrumentation by the physician of record - 41162.? * Procedure Codes:?89021 DEBRI DE NAIL, 6 OR MORE, Modifiers: XS 75957 TRIM SKIN LESIONS, OVER 4, Modifiers: XS * Follow Up:?prn * Images: * Sign off status: Completed true * Provider:?Tanner Tamaoy DPM Date:?2023 Generated for Wes matthews/Elvia/Mick on:?07/28/2024 05:24 PM EDT History and Physical Notes * HPI (History of Present Illness) Category Sub-Category Detail Notes Category Not es At Risk footcare Pt States Last PCP Visit: Date: 4 Examination Category Sub-Category Detail Notes Category Not es Neurological SENSORY: Neurological exa m demonstrates, reduced light touch sensation, reduced sharp/dull pin prick discrimination , B/L, 5.07 monofilament test performed at plantar aspects of 5 varied sites per foot shows sensation, reduced , B/L, Pt still relates, pins and needles sensation, paresthesia, Forefoot, especially in the evening, B/L Dermatologic SKIN FINDINGS: Skin exam reveal s Keratotic lesion(s) located at, SUB MTH (s), 1, B/L , SUB MTH (s), 2, B/L, Plantar Heel(s), B/L Nails NAILS are: Elongated, overg rown, dystrophic, lytic, greater than 3mm thick, discolored and friable with crumbly malodorous subungual debris, with pain on palpation, TA, T1, T2, T3, T4, T5, T6, T7, T8, T9
--- OUTSIDE RECORDS SUMMARY | 2024-07-28 17:24 | XMS_ITS | Clinical Summary ---
[facility] Organization [facility] Address [address] [place] [address] Care Team Providers Care Machined Parts Quality Inspector Name Role Phone Ulysses Escalante MD Primary [...] by mouth daily. 0 Active Multiple Minerals (WCGEHYC-WVIEDTCED-ODC C) TABS Take 371 mg by mouth [...] age to complete this topic Care Teams Machined Parts Quality Inspector Relationship Specialty Start Date End Date Ulysses Escalante MD PCP - General Internal Medicine 04/24/17
--- OUTSIDE RECORDS SUMMARY | 2024-07-28 17:25 | XMS_ITS | Data Portability ---
Author Organization [facility], Patient's Home Address [address] [place] [address] [place] [address] Care Team Providers Care Terrazzo Layer Name Role Phone ANDRESSA REESE Primary Care Provider [phone] MARIEL BELTRAN Dive Master Assessment No assessment recorded. Plan of Treatment [...] optic nerve No observ ation record ed. [email or web address] Not Available 11/12 10:32:03 Result Notes None recorded. Procedures Surgical History Date Name Laterality Status Provider Name and Address Organization Details Recorded Time Retinal Detachment Repair completed Amita Wetzel [facility] 11/12/2023 13:30:21 4 Retinal Detachment Repair completed Amitathom Wetzel [facility] 11/12/2023 13:30:00 Imaging Results Imaging Date Name Status LastModified by Organiz ation Details LastModified Time 11/12/2023 optical coherence tomogram, optic nerve active Information not available 11/13/2023 10:32:03 Procedure Notes [...] Not Available No t Available Dexcom G7 Workforce Development Vice President USE DIRECTED TO MONITOR GLUCOSE active Not [...] SNOMED-CT Code Diagnosis ICD10 Code Diagnosis Note [id number] Vic Anderson MD MAIN OFFICE [facility] [address] [facility] [address] [place] [address] 11/12/2023 12:46:00 11/12/2023 14:29:10 Hemorrhage of left vitreous body [id number] 50028 H43.12 patient saw a hair in left eye 2 months agohad retinal laser x 2 at outside officevisi on has never recovered and hasn't had f/ugood red reflex, retina appears attached but hazy view refer to retina DAPHNIE for evaluation /treatment Amblyopia of right eye [id number] 14457 H53.001 left eye was always dominant eye 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 [id number] 109 E11.3599 NVE ODunable to view [facility] Concerns Section Related Observation LastModified by Organization Detai ls LastModified Time None Recorded Concern Status LastModified by Organization Details LastModified Time None Recorded Advance Directives Directive None Recorded Payers Encounter Date Sequence Insurance Name Policy Number Policy Ozuna Covered Member ID Ozuna Member ID Guarantor Name 11/12/2023 1 MEDICARE B-[place]: [facility] [employer] Coy Garza [id number] Coy Garza 11/12/2023 2 [employer] - SENIOR SERVICES PLAN F (MEDICARE SUPPLEMENT) [id number] Coy Garza [id number] Coy Garza
--- OUTSIDE RECORDS SUMMARY | 2024-07-28 17:25 | XMS_ITS ---
Author Organization [facility] Address [address] [place] [address] Care Team Providers Care Extrusion Manager Name Role Phone Ulysses Escalante MD Primary Care Provider Unavail able Tanner Tamayo Unavailable [phone] Allergies Allergen (clinical drug ingredient) Drug/Non Drug Allergy documented on EMR Reaction Allergy Type Onset Date Status environmental (uncoded) diarrhea Allergy Active REASON FOR VISIT At Risk Footcare, Toe Irritation Medications Medication SIG (Take, Route, Frequency, Duration) Notes Start Date End Date Status B Complex Not-Taking CeleBREX Not-Taking Lisinopril 10 MG 1 tablet Orally Once a day Not-Taking traMADol HCl 50 MG 1 tablet as needed Orally every 6 hrs Not-Taking Invokana Not-Taking Aspirin 325 MG 1 tablet as needed Orally once daily Not-Taking Semglee 60 units before bed Not-Taking Voltaren 1 % as directed Transdermal Four times a day for 30 days 02/04/2019 Not-Taking Levemir 100 UNIT/ML as directed Subcutaneous 50-55 units before bed Not-Taking Modafinil 100 MG 1 tablet in the morning Orally Once a day Not-Taking Modafinil 300MG Not-Taking Trulicity Not-Taking Fexofenadine HCl 180 MG 1 tablet Swallow whole with water; do not take with fruit juices. Orally Once a day for 30 day(s) Not-Taking HumaLOG sliding scale Not-Taking Vitamin D Not-Taking Extra Depth Orthopedic Shoes (1 Pair) with Customized Heat Molded Multidensity Innersoles (3 Pair) as directed Dx: IDDM/Polyneuropathy (E10.42), Hammertoe Foot Deformity (M20.41,M20.42), Preulcerative Skin Lesion(s) (L85.1) Active No Doz Maximum Strength Not-Taking Armodafinil 250 MG 1 tablet in the morning Orally Once a day Not-Taking Calcium + D 600 mg 1 tablet with food Orally Once a day for 30 day(s) Not-Taking Mucinex Not-Taking Vitamin B12 Not-Taki ng Ozempic Active Pravastatin Sodium 40 MG 1 tablet Orally Once a day for 30 day(s) Active Multivitamins as directed Orally Not-Taking NovoLOG 100 UNIT/ML as directed Injection Active Lantus 100 UNIT/ML 0.1 ml Subcutaneous Once a day for 30 days 10 Units Active Losartan Potassium 25 MG 1 tablet Orally Active Farxiga Active Gabapentin 300 MG 1 capsule Orally at bedtime Not-Taking metFORMIN HCl 2000 mg 1 tablet with meal s Orally Twice a day for 30 day(s) Active Calcium Magnesium Ac tive Social History Tobacco Use: Social History Observation Description Date Details (start date - stop date) Never Smoker NA - NA Alcohol Screen Question Answer Notes Did you have a drink containing alcohol in the p ast year? No Points 0 Interpretation Negative Tobacco use other than smoking: Question Answer Notes Are you an other tobacco user? No Tobacco Control (Standard) Question Answer Notes Tobacco use: Nonsmoker Additional Findings: Tobacco non-user Current no nsmoker Vital Signs Height 6ft in 07/19/2024 Weight 266 lbs 07/19/2024 BMI 36.07 kg/m2 07/19/2024 Blood pressure systolic 129 mm Hg 07/20/19 25 Blood pressure diastolic 72 mm Hg 025 Procedures Procedure Date Ordered Date Performed Result Body Sit e 04038-JFFFJZG NAIL, 6 OR MORE 07/19/2024 N/A 26599-KRKS SKIN LESIONS, OVER 4 07/19/2024 N/A Encounters Encounter Location Date Provider Diagnosis [facility] [address] [address] 07/19/2024 Tanner Tamayo Type 1 diabetes mellitus with diabetic polyneuropathy E10.42 ; Other hammer toe(s) (acquired), right foot M20.41 ; Onychomycosis B35.1 and Other hammer toe(s) (acquired), left foot M20.42 Assessments Encounter Date Diagnosis (ICD Code) Assessment Notes Treatment Notes Treatment Clinical Notes Section Notes 07/19/2024 Type 1 diabetes mellitus with diabetic polyneuropathy (ICD-10 - E10.42) 07/19/2024 Other hammer toe(s) (acquired), right foot (ICD-10 - M20.41) Patient Educated with: DIABETIC FOOT CARE INSTRUCTIONS. pdf (DIABETIC FOOT CARE INSTRUCTIONS. pdf) 07/19/2024 Onychomycosis (ICD-10 - B35.1) 07/19/2024 Other hammer toe(s) (acquired), left foot (ICD-10 - M20.42) Plan Of Treatment Treatment Notes Assessment Notes Other hammer toe(s) (acquired), right fo ot Patient Educated with: DIABETIC FOOT CARE INSTRUCTIONS.pdf (DIABETIC FOOT CARE INSTRUCTIONS.pdf) Pending Test Test Name Order Date 05672-TYHNIJD NAIL, 6 OR MORE 07/19/2024 10565-XBBB SKIN LESIONS, OVER 4 07/20/19 25 Next Appt Details Follow Up: prn, Reason: Provider Name:Tanner Tamayo , 10/14/2024 03:45:00 PM, [address] [facility], [address], [place], [address], Procedure Notes * Category Sub-Category Detail Notes [...] T3, T4, T5, T6, T7, T8, T9 ), was performed exclusively by the physician of record to reduce/remove overall nail length, girth, thickness, subungual debris, and necrotic tissue, by manual and/or electrical means through the use of a nail nipper and/or dremel-type refractory grinder operator, to a more viable healthy nail plate [...] to maintain effectiveness in symptomatic relief - 18846 Keratoma Treatment Parring or Cutting o f [...] risk. Therefore, the benign hyperkeratotic lesions, ( 6 ) in total, locations as stated and described in the exam ( SUB MTH (s), 1, B/L , SUB MTH (s), 2, B/L, Plantar Heel(s), B/L ), were pared, and/or cut utilizing a sterile 15 blade, tissue nippers, and/or power dremel instrumentation by the physician of record - 53173 Progress Notes * Coy LORENZ LDOB:[birth year] (63 yo M)Acc No.[id number]:07/19/2024 Progress Note Patient:?Coy LORENZ Provider:?Tanner Tamayo DPM :1960???Age:63 Y???Sex:Male Ishan e:07/19/2024 Address:[facility] [address] [place], [facility] Pcp:Ulysses Escalante MD Subjective: * Chief Complaints: * ???At Risk FootcareToe Irrit ation * HPI: ???At Risk footcare:?Pt States Last PCP Visit:?Date?07/14/2024 ???Toe pain:?Location:?B/L feet.?Duration:?several years.?Course:?worse.?Aggravated by:?shoes, any pressure.?Treatments:?change in shoes.? * ROS:?General/Constitutional:?Nausea?denies.?Vomiting?denies.?Hunger Thirst?denies.?Loss appetite?denies.?Chills?denies.?Fatigue?denies.?Fever?denies.?Night Sweats?denies.?Unexplained weight loss?denies.?Ophthalmologic:?Blurred vision?denies.?Red eye?denies.?HEENTM:?Dentures?denies.?Dizziness?denies.?Glasses/contacts?denies.?Retinopathy?den ies.?Blurred/double vision?denies.?TMJ?denies.?Discharge/drainage?denies.?Implants?denies.?Hard of hearing admits.?Difficulty chewing/swallowing/speaking?denies.?Nose bleeds?denies.?Sore mouth?denies.?Swollen glands?denies.?Respiratory:?On O xygen?denies.?Pneumonia/pleurisy?denies.?Bronchitis?denies.?Emphysema?denies.?Co ughing?denies.?Cough blood?denies.?Shortness of breath?denies.?Wheezing?denies.?Cardiovascular:?Pacemaker?denies.?MVP?denies.?WPW?denies.?CHF?denies.?Heart attack?denies.?Septal defect?denies.?Rapid beat?denies.?Chest pain ?denies.?Atrial Fib.?denies.?Murmur/Palpitations?denies.?Gastrointestinal:?Hemorrhoids?denies.?Stomach/Abdominal pain?denies.?Dark blood stool?denies.?Irritable bowel ?denies.?Constipation?denies.?Diarrhea?denies.?Vomiting?denies.?Hematology:?Swelling?denies.?Bruising??admits, on aspirin.?Bleeding problem??admits, on anticoagulants.?Genitourinary:?Blood urine?denies.?Frequent/Painfu/urination/bladder control?denies.?Kidney stones?denies.?Infection (UTI)?denies.?Nephropathy?denies.?Musculoskeletal:?Hammertoes?admits.?Bunions?denies.?Scoliosis/kyphosis?denies.?Muscle cramps / walking?denies.?Generalized aches and pains?denies.?Weakness?denies.?Integ.:?Rinaldi?denies.?Scars?denies.?Corns/calluses?admits.?Ingrown nails?admits.?Painful nails?denies.?Rashes?denies.?Neurologic:?Difficulty sleeping?denies.?Bipolar?denies.?Brain disorder?denies.?Balance t rouble?denies.?Confusion?denies.?Fainting/blackouts?denies.?Headache?denies.?Osmin mors?denies.? * Medical History:? * Surgical History:?cholecyste ctomy 2002kidney stones 2001,2002,2004eye surgery 11/2023 * Hospitalization/Major Diagno stic Procedure:?[facility] Chest Pain 06/26/11[facility]- Tendon surgery right middle finger 08/29/14[facility]- MRI for herniated disc 02/24/15[facility] - 2x for back and 1 for tooth 01/2016[facility]- had a fall [facility] * Family History:?Mother: dece ased, tumor on lungs.?Father: .?Daughter(s): alive.?Siblings: alive, skin cancer, diagnosed with Other malignant neoplasm of unspecified site.?1 daughter(s) . .? * Social History:?Tobacco Use:?Tobacco use other than smoking?Are you an other tobacco user??No ?Tobacco Control (Standard)?Tobacco use:?Nonsmoker ?Additional Findings: Tobacco non-user?Current nonsmoker ???Drugs/Alcohol:?Drugs?Have you used drugs other than those for medical reasons in the past 12 months??No ?Alcohol Screen?Did you have a drink containing alcohol in the past year??No ?Points?0 ?Interpretation?Negative ???Miscellaneous:?Caffeine: yes, frequency:, 1-2 cups per day. ?Children: yes, one. ?Exercise: no. ?Marital status: . 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 * Medications:?TakingCalcium M agnesium Farxiga Lantus 100 UNIT/ML Solution 0.1 ml Subcutaneous Once a day , Notes to Pharmacist: 10 UnitsLosartan Potassium 25 MG Tablet 1 tablet Orally metFORMIN HCl 2000 mg Tablet 1 tablet with meals Orally Twice a day NovoLOG 100 UNIT/ML Solution as directed Injection Ozempic Pravastatin Sodium 40 MG Tablet 1 tablet Orally Once a day Extra Depth Orthopedic Shoes (1 Pair) with Customized Heat Molded Multidensity Innersoles (3 Pair) as directed Dx: IDDM/Polyneuropathy (E10.42), Hammertoe Foot Deformity (M20.41,M20.42), Preulcerative Skin Lesion(s) (L85.1) Taking Calcium Magnesium Taking Farxiga Taking Lantus 100 UNIT/ML Solution 0.1 ml Subcutaneous Once a day , Notes to Pharmacist: 10 UnitsTaking Losartan Potassium 25 MG Tablet 1 tablet Orally Taking metFORMIN HCl 2000 mg Tablet 1 tablet with meals Orally Twice a day Taking NovoLOG 100 UNIT/ML Solution as directed Injection Taking Ozempic Taking Pravastatin Sodium 40 MG Tablet 1 tablet Orally Once a day Taking Extra Depth Orthopedic Shoes (1 Pair) with Customized Heat Molded Multidensity Innersoles (3 Pair) as directed Dx: IDDM/Polyneuropathy (E10.42), Hammertoe Foot Deformity (M20.41,M20.42), Preulcerative Skin Lesion(s) (L85.1) Not-Taking/PRNGabapentin 300 MG Capsule 1 capsule Orally at bedtime Multivitamins Tablet as directed Orally Vitamin B12 Calcium + D 600 mg Tablet 1 [...] List reviewed and reconciled with the patientNot-Taking/PRN Gabapentin 300 MG Capsule 1 capsule Orally at bedtime Not-Taking/PRN Multivitamins Tablet as directed Orally Not-Taking/PRN Vitamin B12 Not-Taking/PRN Calcium + D 600 mg Tablet 1 [...] * Allergies:?environmental: jordan osman[Allergies Verified] Objective: * Vitals:?Ht: 6ft, Wt:266, BMI :36.07, Shoe size: 10.5W, BP:129/72mm Hg, BS: 162, Ht-cm: 182.88 cm, Wt-k.66 kg. * ???Past Orders: ???Lab:HEMOGLOBIN A1C (GLYCO HEMOGLOBIN) (Order Date - 07/14/2024) (Collection Date & Time - 07/15/2024 01:57 PM) ? Value Reference Range ?HEMOGLOBIN A1C % (HH) 6.6 * Examination: ???Ophthalmology Referral: ?DIABETES EYE EXAM?Procedure Performed:?Yes ?Date of Exam Performed?07/02/2023 States next appt soon - 07/21/24 ?Diabetic Retinopathy Screening:?Yes ?Retinal Screening Performed:?Yes ?Findings of Diabetic Eye Exam:?retinopathy?Neurological: ?SENSORY:?Neurological exam demonstrates, reduced light touch sensation, [...] SUB MTH (s), 2, B/L, Plantar Heel(s), B/L.?Orthopedic: ?MUSCLE STRENGTH:?5/5 all groups in a symmetrical fashion , B/L.?FOOT MORPHOLOGY:? Pes Planus structure, No Charcot collapse/destruction noted at MTJ.?DIGITAL DEFORMITIES:?Digital contracture, PIPJ, 2-5 B/L, incompl-reducible to push-up test, no over, nor underlapping, with evidence of shoe producing skin irritation.?FOOTWEAR:?worn, non-supportive, shoe gear properties exacerbate patient's foot/toe deformity , shoe gear properties exacerbate patients foot/toe deformity.?Vascular: ?DP PULSES (B):?2/4, B/L.?PT PULSES (B):?2/4, B/L.?CAPILLARY FILL TIME:?3 secs. per digit, B/L.?TROPHIC CONDITION-TEXTURE/ELASTICITY/TURGOR/HAIR GROWTH (B):?normal, B/L.?TEMPERTURE GRADIENT (C):?normal, warm to cool, proximal to distal, B/L, B/L.?PIGMENTATION:?normal, B/L.?EDEMA (C):?absent, B/L.?General Examination: ?GENERAL APPEARANCE:?Reveals a pleasant, alert, well nourished, well- developed, well hydrated individual, who demonstrates proper attention to hygiene/body habitus, and is in no acute distress, Pt serves as own historian for office visit today.?ORIENTED:?person, place, and time.?FOOT EXAM:?Lower Extremity Neurological Exam performed:?Yes ?Visual exam of foot performed:?Yes ?Date?07/19/2024 ?Footwear Evaluation?Footwear Evaluation performed:?Yes??? Assessment: * Assessment: 1.?Other hammer toe(s) (acqu ired), right foot - M20.41 (Primary)???Specify :Chronic problem, Worse (4)???2.?Type 1 diabetes mellitus with diabetic polyneuropathy - E10.42???3.?Onychomycosis - B35.1???4.?Other hammer toe(s) (acquired), left foot - M20.42???Specify :Chronic problem, Worse (4)??? Plan: * Treatment: 2.?Type 1 diabetes mellitus with diabetic polyneuropathy?Procedure: 38676-COKBVRJ NAIL, 6 OR MORE ?Procedure: 40610-BALM SKIN LESIONS, OVER 4 * Procedures:?Debride Nail 6-10:?Nail debridement?Due to the clinical pathology outlined in the exam findings, performance of this nail treatment is medically necessary as its management by an unskilled/untrained nonprofessional would put this patients foot and overall health at risk. Therefore, debridement to affected nail(s), as described in exam (?TA, T1, T2, T3, T4, T5, T6, T7, T8, T9?), was performed exclusively by the physician of record to reduce/remove overall nail length, girth, thickness, subungual debris, and necrotic tissue, by manual and/or electrical means through the use of a nail nipper and/or dremel-type refractory grinder operator, to a more viable healthy nail plate [...] to maintain effectiveness in symptomatic relief - 17272.?Keratoma Treatment:?Parring or Cutting of Benign Hyperkeratotic Lesion(s)?(-57) More than 4 Lesions - Due to the at risk nature of the patients medical condition as documented in the exam findings, performance of this keratoderma treatment is medically necessary as its management by an unskilled/untrained nonprofessional would put this patients foot and overall health at risk. Therefore, the benign hyperkeratotic lesions, ( 6 ) in total, locations as stated and described in the exam ( SUB MTH (s), 1, B/L , SUB MTH (s), 2, B/L, Plantar Heel(s), B/L ), were pared, and/or cut utilizing a sterile 15 blade, tissue nippers, and/or power dremel instrumentation by the physician of record - 11865.? * Procedure Codes:?33704 DEBRI DE NAIL, 6 OR MORE, Modifiers: XS 73620 TRIM SKIN LESIONS, OVER 4, Modifiers: XS * Preventive Medicine:? ??Counseling:?Discussion:?-13: Office or other outpatient visit for the evaluation and management of an established patient, which required a medically appropriate history and/or examination and LOW level of DECISION MAKING for: 1 STABLE ACUTE UNCOMPLICATED PROBLEM, 2 OR MORE MINOR PROBLEMS, OR 1 STABLE CHRONIC PROBLEM, THAT POSE(S) A LOW RISK FOR MORBIDITY/MORTALITY. The visit on the day of the encounter encompassed interpreting the data and educating the patient as to the nature of their condition, treatment options available according to their individual PMH, meds, allergies, and overall health/living conditions, as well as any potential risks or complications that may occur from a failure to adhere to, and participate in, the recommended course of therapy. The discussion included a complete verbal, and/or written explanation of the examination results, any x-rays taken, the proposed diagnosis, and outline of the treatment plan. A schedule for future care needs was also explained. The patient verbalized an understanding of the instructions at this time and agreed to be an active participant in their treatment. If the patient should think of any questions or concerns after the visit, I have encouraged the patient to call the office.?Digital Surgery:?Digital surgery was discussed with the patient, We elected to try conservative treatment at the present time, due to the patients medical history and increased asssociated post-operative risks.?Digital Treatment:?HT- I explained to the patient the possible etiologies of Hammertoes, including genetics/foot type/shoegear/activity level/exercise routine and the risks/benefits of all the different treatment options for their pain including: No treatment at all, Rest, Ice, New/supportive/wider/deeper Shoegear, Digital Padding/Strapping/Taping/Bracing/Gel protective sleeves, Foot/Ankle AFO Bracing, Stretching exercises, Deep Tissue Massage, Arch support/shoe inserts with splay metatarsal padding, and Custom orthoses. I insisted that any digital devices be removed daily and not worn overnight for safety. The patient is to carefully examine the toes daily for any skin irritation while using any splinting or padding device. The advantages and disadvantages of each option were discussed and the patients questions re: shoegear, padding, custom vs prefabricated inserts, activity level, and consistency in home treatment regimens for optimal success were answered to their verbally confirmed satisfaction.?Shoe Gear Counseling:?SHOE Rx - The patient was counseled in great detail on their muscoloskeletal foot and toe deformities which coincided with the dermatological presentations visualized on exam. We discussed how their deformities put the integrity of their feet at risk for potential pedal complications which makes the accomidative diabetic shoes and cutomizable inserts medically necessary. We discussed the different shoe and insert treatment types and options, as well as the important advantages for adhering to regularly wearing these accomidative devices daily. The patient was made aware of the fact that a failure to abide by these recommedations may be deleterious to their foot health as they are able to prevent many pedal complications such as skin irritation, skin ulceration, infection, and even loss of toe/foot/leg/or life. Time was also spent with the patient dispensing and discussing proper diabetic footcare techniques including daily skin moisturization, daily foot inspection for any interruption in skin integrity including open lesions, or sign of infection such as redness/malodor/drainage/swelling. Also discussed and recommended were procedures regarding daily shoe inspection for the presence of internal foreign bodies as well as any visualized irregular shoe or insert wear. Patient questions re: shoes, inserts, and self foot inspections were answered to their satisfaction as the patient verbally confirmed a full understanding of the above information, Patient DEFERS recommended Extra Depth Orthopedic pressure-accommodative shoes against medical advice.? ??Screening/Special Tests:?Fall Risk?Screening:?No falls in the past year ?FALLS: Screening for Future Fall Risk?Have you had any falls with injury in the past year??No * Follow Up:?prn * Images: * Sign off status: Completed true * Provider:?Tanner Tamayo DPM Date:?2024 Generated for Wes matthews/Elvia/Mick on:?07/28/2024 05:25 PM EDT History and Physical Notes * HPI (History of Present Illness) Category Sub-Category Detail Notes Category Not es Toe pain Location: B/L feet Duration: several years Course: worse Aggravated by: shoes, any pressure Treatments: change in shoes At Risk footcare Pt States Last PCP Visit: Date: 5 Examination Category Sub-Category Detail Notes Category Not [...] MTH (s), 2, B/L, Plantar Heel(s), B/L Orthopedic FOOT MORPHOLOGY: Pes Planus stru cture, No Charcot collapse/destruction noted at MTJ FOOTWEAR: worn, non-supportive , shoe gear properties exacerbate patient's foot/toe deformity , shoe gear properties exacerbate patients foot/toe deformity DIGITAL DEFORMITIES: Digital contracture , PIPJ, 2-5 B/L, incompl-reducible to push-up test, no over, nor underlapping, with evidence of shoe producing skin irritation MUSCLE STRENGTH: 5/5 all groups in a symmetrical fashion , B/L General Examination GENERAL APPEARANCE: Reveals a pleasant, alert, well nourished, well-developed, well hydrated individual, who demonstrates proper attention to hygiene/body habitus, and is in no acute distress, Pt serves as own historian for office visit today FOOT EXAM: Lower Extremity Neurological Exa m performed:: Yes Visual exam of foot performed:: Yes Date: 07/19/2024 ORIENTED: person, place, and t caden Footwear Evaluation Footwear Evaluation performe d:: Yes Ophthalmology Referral DIABETES EYE EXAM Procedure Perform ed:: Yes ?Date of Exam Performed: 07/02/2023 Stat es next appt soon - 07/21/24 Diabetic Retinopathy Screening:: Yes Retinal Screening Performed:: Yes Findings of Diabetic Eye Exam:: retinopa thy Vascular DP PULSES (B): 2/4, B/L PT PULSES (B): 2/4, B/L CAPILLARY FILL TIME: 3 secs. per digit, B/L TEMPERTURE GRADIENT (C): normal, warm to cool, proximal to distal, B/L, B/L TROPHIC CONDITION-TEXTURE/ELASTICITY/TURGOR/HAIR GROWTH (B): normal, B/L EDEMA (C): absent, B/L PIGMENTATION: normal, B/L Nails NAILS are: Elongated, overg rown, dystrophic, lytic, greater than 3mm thick, discolored and friable with crumbly malodorous subungual debris, with pain on palpation, TA, T1, T2, T3, T4, T5, T6, T7, T8, T9
== END 2024-07-28 14:47 | disposition home or self-care (01) ==
LOC: HO.BBR 14:46
PROVIDERS: PCP Internal Medicine; Visit Provider Internal Medicine
DX: E83.110 Hereditary hemochromatosis (principal)
CPT/HCPCS: 85014; 85018; 99195

== ENCOUNTER 2024-09-01 14:08 | Outpatient (REF) | payer MEDICARE, OTHER, SELFPAY ==
--- OUTSIDE RECORDS SUMMARY | 2024-09-01 16:54 | XMS_ITS ---
Author Organization [facility] Address [address] [place] [address] Care Team Providers Care Java Application Developer Name Role Phone Ulysses Escalante MD Primary Care Provider Unavail Tanner Art Unavailable [phone] Encounters Encounter Location Date Provider Diagnosis [address] [address] 04/21/2024 Tanner Tamayo Plan Of Treatment Next Appt Details Provider Name:Tanner Tamayo , 10/14/2024 03:45:00 PM, [address] [place] [address], [phone], Progress Notes * KELECHICoy HEREDIA LDOB:[birth year] (63 yo M)Acc No.[id number]:04/21/2024 Progress Note Patient:?Coy LORENZ Provider:?Tanner Tamayo DPM :1960???Age:63 Y???Sex:Male Ishan e:04/21/2024 Address:[address], [place] Pcp:Ulysses Escalante MD Subjective: * Chief Complaints: [...] Tamayo DPM Date:?2023 Generated for Wes matthews/Elvia/Mick on:?09/01/2024 04:54 PM EDT
--- OUTSIDE RECORDS SUMMARY | 2024-09-01 16:54 | XMS_ITS | Encounter Summary ---
Author Organization [facility] Address [address] [place] [address] Care Team Providers Care Healthcare Administrator Name Role Phone Ulysses Escalante MD Primary Care Provider + [phone] Encounter Details Date Type Department Care Team (Late st Contact Info) Description 08/26/[address] [facility] - Main Lab [address] [facility] [place] [address] Eduard Mendoza MD [address] [place] [phone] Personal history of malignant neoplasm of bladder Social History Tobacco Use Types Packs/Day Years Used Date Smoking Tobacco: Never Assessed Sex and Gender Information Value Date Recorded Sex Assigned at Male 04/30/2024 7:13 PM EST Legal Sex Male 8:02 AM EST Gender Identity Male 04/30/2024 7:13 PM EST Sexual Orientation Not on file documented as of this encounter Plan of Treatment Not on file documented as of this encounter Procedures Procedure Name Priority Date/Time Associated Diagnosis Comments AP OUTSIDE CONSULT Routine 08/25/2024 Personal history of malignant neoplasm of bladder documented in this encounter Results * Anatomic pathology outside consult (08/25/2024) Final Diagnosis Urinary Bladder-trans urethral resection: -PAPILLARY UROTHELIAL CARCINOMA, HIGH GRADE -Invasion: Not identified -Muscularis propria, (Detrusor muscle) present for evaluation -Lymphovascul ar invasion: Not identified -Urothelial carcinoma in situ: Not identified 08/30/2024 2:40 PM EDT [facility] Clinical Information Z85.51 - H/O bladder neoplasm (malignant) [id number] 08/30/2024 2:40 PM EDT [facility] Gross Description A. Urinary Bladder, tumor: Labeled bladder tumor . Received in formalin are 4 soft, hernandez-red tissue fragments, measuring 0.4x0.3x0.2cm in greatest diameters, which are wrapped in paper and submitted in toto, one cassette, 4 pieces, multiple levels. /al 08/30/2024 2:40 PM EDT [facility] Disclaimer Unless otherwise specified, all tissue is 10% NB formalin fixed and paraffin embedded. Technical pathology services provided by [facility] [address] [facility] [address] [place] [address] (CLIA #[id number]/S diana Michael MD, Supervisor Joiners) 08/30/2024 2:40 PM EDT [facility] Tissue Urinary bladder structure / Unknown 08/25/2024 08/26/2024 4:37 PM EDT us Eduard Mendoza MD LAB PATHOLOGY ORDERABLES Final Result [facility] [address] [place] [address], documented in this encounter Visit Diagnoses Diagnosis Personal history of malignant neoplasm of bladder documented in this encounter Care Teams Healthcare Administrator Relationship Specialty Start Date End Date Ulysses Escalante MD [address] [place] [address] PCP - General Internal Medicine 10/05/13 documented as of this encounter
--- OUTSIDE RECORDS SUMMARY | 2024-09-01 16:54 | XMS_ITS | Data Portability ---
Author Organization [facility], Patient's Home Address [address] [facility] [place] [address] [place] [address] Care Team Providers Care Instrument Installer Name Role Phone ANDRESSA REESE Primary Care Provider [phone] MARIEL BELTRAN Assurance Manager Assessment No assessment recorded. Plan of Treatment [...] optic nerve No observ ation record ed. [email or web address] Not Available 11/12 10:32:03 Result Notes None recorded. Procedures Surgical History Date Name Laterality Status Provider Name and Address Organization Details Recorded Time Retinal Detachment Repair completed Amita Wetzel [facility] 11/12/2023 13:30:21 4 [facility] 13:30:00 Imaging Results Imaging Date Name [...] Not Available No t Available Dexcom G7 Chief Counsel USE DIRECTED TO MONITOR GLUCOSE active Not [...] SNOMED-CT Code Diagnosis ICD10 Code Diagnosis Note [id number] Vic Anderson MD MAIN OFFICE [place] [address] 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 [employer] Coy Garza [id number] Coy Garza 11/12/2023 2 [employer] - SENIOR SERVICES PLAN F (MEDICARE SUPPLEMENT) [id number] Coy Garza [id number] Coy Garza
--- OUTSIDE RECORDS SUMMARY | 2024-09-01 16:54 | XMS_ITS | Clinical Summary ---
Author Organization [facility] Address [address] [place] [address] Care Team Providers Care Rim Roller Operator Name Role Phone Ulysses Escalante MD Primary Care Provider [phone] Allergies Active Allergy Reactions Criticality Noted Date [...] by mouth daily. 0 Active Multiple Minerals (JYGJQJZ-[id number]-GUJ C) TABS Take 371 mg by mouth [...] age to complete this topic Care Teams Rim Roller Operator Relationship Specialty Start Date End Date Ulysses Escalante MD PCP - General Internal Medicine 04/24/17
--- OUTSIDE RECORDS SUMMARY | 2024-09-01 16:54 | XMS_ITS | Clinical Summary ---
Author Organization [facility] ter Address [address] [place] [address] Phone Care Team Providers Care Seal Extrusion Operator Name Role Phone Ulysses Escalante MD Primary Care Provider [phone] Encounters Date Type Department Care Team Description 08/26/2024 Lab Requisition [facility] [address] [place] [phone] Eduard Mendoza MD Personal history of malignant neoplasm of bladder 08/13/2024 Lab Requisition [facility] [address] [place] [phone] Eduard Mendoza MD Neoplasm of uncertain behavior of bladder 07/20/[address] [facility] [address] [place] [phone] Sylvia Mauro MA from Last 3 Months [...] of 2 - PCV) 1977 RSV Immunization Adult Patients (1 - Risk 60-74 years 1-dose series) 2018 COVID-19 Vaccine (3 - Modern a risk series) 03/12/2021 02/12/2021, 01/09/2021 Cholesterol Screening (Lipid Panel) 04/27/2022 Colorectal Cancer Screening: Colonoscopy 04/27/2022 Depression Screening 04/27/2022 Hepatitis C Screening 04/27/2022 Medicare Annual Wellness Visit 04/27/2022 Social Influencers of Health Screening 04/27/2022 Falls Risk Assessment 10/28/2023 Diabetes: Blood Sugar Contro l Test (HGBA1C) 04/28/2024 Hypertension/CHF/CAD Annual BMP Blood Test 04/28/2024 Diabetes: Annual Urine Albumin-Creatinine Ratio (uACR) 12/20/2024 12/21/2023 Influenza Vaccine (Season Ended) 2025 04/07/2023, 02/19/2022, 04/23/2021 Zoster Vaccines Completed 02/19/2022, 11/21/2021 HIB Vaccines [...] age to complete this topic Meningococcal B Vaccine Aged Out No l onger eligible based on patient's age to complete [...] Personal history of malignant neoplasm of bladder AP OUTSIDE CONSULT Routine 08/06/2024 12 :00 AM EDT Neoplasm of uncertain behavior of bladder from Last 3 Months Results * Anatomic pathology outside consult (08/25/2024) Only the most recent of2 resultswithin the time period is included. Final Diagnosis Urinary Bladder-trans urethral resection: -PAPILLARY UROTHELIAL CARCINOMA, HIGH GRADE -Invasion: Not identified -Muscularis propria, (Detrusor muscle) present for evaluation -Lymphovascul ar invasion: Not identified -Urothelial carcinoma in situ: Not identified 08/30/2024 2:40 PM EDT [facility] Clinical Information Z85.51 - H/O bladder neoplasm (malignant) [id number] 08/30/2024 2:40 PM EDT [facility] Gross Description A. Urinary Bladder, tumor: Labeled bladder tumor . Received in formalin are 4 soft, hernandez-red tissue fragments, measuring 0.4x0.3x0.2cm in greatest diameters, which are wrapped in paper and submitted in toto, one cassette, 4 pieces, multiple levels. /al 08/30/2024 2:40 PM EDT [facility] Disclaimer Unless otherwise specified, all tissue is 10% NB formalin fixed and paraffin embedded. Technical pathology services provided by [facility] at [address] [place] [address] [address], [place] [address] (CLIA #[id number]/S diana Michael MD, Document Management Consultant) 08/30/2024 2:40 PM EDT [facility] Tissue Urinary bladder structure / Unknown 08/25/2024 08/26/2024 4:37 PM EDT us Eduard Mendoza MD LAB PATHOLOGY ORDERABLES Final Result [facility] [address] [place] [address], [place] [phone] from Last 3 Months Insurance MEDICARE [facility] Care Teams Seal Extrusion Operator Relationship Specialty Start Date End Date Ulysses Escalante MD [address] [place] [address] PCP - General Internal Medicine 10/05/13
--- OUTSIDE RECORDS SUMMARY | 2024-09-01 16:54 | XMS_ITS | Encounter Summary ---
Author Organization [facility] Address [address] [place] [address] Care Team Providers Care Cost Engineer Name Role Phone Ulysses Escalante MD Primary Care Provider + [phone] Encounter Details Date Type Department Care Team (Late st Contact Info) Description 08/13/2024 Lab Requisition [facility] - Main Lab [address] [facility] [place] [address] Eduard Mendoza MD [address] [place] [phone] Neoplasm of uncertain behavior of bladder Social History Tobacco Use Types [...] Associated Diagnosis Comments AP OUTSIDE CONSULT Routine 08/06/2024 12 :00 AM EDT Neoplasm of uncertain behavior of bladder documented in this encounter Results * Anatomic pathology outside consult (08/06/2024 12:00 AM EDT) Final Diagnosis Urine, Voided, ([id number]): Suspicious for high grade urothelial carcinoma. Acute inflammation present. Results of UroVysion fluorescence in situ hybridization (FISH) testing: CEP3: Abnormal CEP7: Abnormal CEP17: Abnormal LSI 9p21: Normal Interpretation: Abnormal profile Controls stained appropriately. Note: Abnormal results are considered suspicious for urothelial carcinoma. 08/17/2024 9:38 AM EDT [facility] Clinical Information Neoplasm of uncertain behavior of bladder D41.4 Urine Cytology/FISH (now) 08/17/2024 9:38 AM EDT [facility] Gross Description A. Urine, Voided, ([id number]): Received one ThinPrep slide for cytology and one ThinPrep slide for UroVysion FISH 08/17/2024 9:38 AM EDT [facility] Disclaimer Unless otherwise specified, all tissue is 10% NB formalin fixed and paraffin embedded. Technical pathology services provided by [facility] [address] [facility] [address] [place] [address] (CLIA #[id number]/Leatha Michael MD, Computer Lab Aide) 08/17/2024 9:38 AM EDT [facility] Tissue Urine specimen from urethra / Unknown 08/06/2024 08/13/2024 11:01 AM EDT us Eduard Mendoza MD LAB PATHOLOGY ORDERABLES Final Result [facility] [address] [place] [address], documented in this encounter Visit Diagnoses Diagnosis Neoplasm of uncertain behavior of bladder documented in this encounter Care Teams Cost Engineer Relationship Specialty Start Date End Date Ulysses Escalante MD [address] [place] [address] PCP - General Internal Medicine 10/05/13 documented as of this encounter
--- OUTSIDE RECORDS SUMMARY | 2024-09-01 16:54 | XMS_ITS ---
Author Organization [facility] Address [address] [place] [address] Care Team Providers Care Technical Agronomist Name Role Phone Ulysses Escalante MD Primary Care Provider Unavail able Tanner Tamayo Unavailable [phone] Allergies Allergen (clinical drug ingredient) Drug/Non Drug [...] Ordered Date Performed Result Body Sit e 82130-XDVMVLU NAIL, 6 OR MORE 04/30/2024 N/A [id number] SKIN LESIONS, OVER 4 04/30/2024 N/A Encounters Encounter Location Date Provider Diagnosis [facility] [place] [address] [place] [address] 04/30/2024 Tanner Tamayo Type 1 diabetes mellitus with diabetic polyneuropathy E10.42 and Tinea unguium B35.1 Assessments Encounter Date Diagnosis (ICD Code) Assessment Notes Treatment Notes Treatment Clinical Notes Section Notes 04/30/2024 Type 1 diabetes mellitus with diabetic polyneuropathy (ICD-10 - E10.42) 04/30/2024 Tinea unguium (ICD-10 - B35.1) 04/30/2024 Other Plan Of Treatment Pending Test Test Name Order Date 68221-UAIMLUY NAIL, 6 OR MORE 04/30/2024 95597-XQGX SKIN LESIONS, OVER 4 04/30/20 24 Next Appt Details Follow Up: prn, Reason: Provider Name:Tanner Tamayo , 10/14/2024 03:45:00 PM, [address], [place], [address], Procedure Notes * Category Sub-Category Detail Notes [...] use of a nail nipper and/or dremel-type perlite grinder, to a more viable healthy nail [...] to maintain effectiveness in symptomatic relief - 74915 Keratoma Treatment Parring or Cutting o f [...] instrumentation by the physician of record - 98336 Progress Notes * Coy LORENZ LDOB:[birth year] (63 yo M)Acc No.[id number]:04/30/2024 Progress Note Patient:Coy UGERRA Provider:?Tanner Tamayo DPM :1960???Age:63 Y???Sex:Male Ishan e:04/30/2024 Address:[facility] [address] [place], [place] Pcp:Ulysses Escalante MD Subjective: * Chief Complaints: [...] for tooth 01/2016[facility]- had a fall 05/30[facility]- Left eye 11/24/23 * Family History:?Mother: [...] one. ?Exercise: no. ?Marital status: . 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 * Medications:?TakingCalcium M agnesium [...] use of a nail nipper and/or dremel-type perlite grinder, to a more viable healthy nail [...] to maintain effectiveness in symptomatic relief - 45218.?Keratoma Treatment:?Parring or Cutting of Benign Hyperkeratotic Lesion(s)?(-57) [...] instrumentation by the physician of record - 13602.? * Procedure Codes:?05373 DEBRI DE NAIL, 6 OR MORE, Modifiers: XS 32523 TRIM SKIN LESIONS, OVER 4, Modifiers: XS * Follow Up:?prn * Images: * Sign off status: Completed true * Provider:?Tanner Tamayo DPM Date:?2023 Generated for Wes matthews/Elvia/Mick on:?09/01/2024 04:54 PM EDT History and Physical Notes * [...]
--- OUTSIDE RECORDS SUMMARY | 2024-09-01 16:55 | XMS_ITS | Patient Health Record ---
Author Organization [facility] Address [address] [place] [address] Care Team Providers Care Store Deli Manager Name Role Phone Ulysses Escalante MD Primary Care Provider Unavail able Tanner Tamayo Unavailable [phone] Allergies Allergen (clinical drug ingredient) Drug/Non Drug Allergy documented on EMR Reaction Allergy Type Onset Date Status environmental (uncoded) diarrhea Allergy Active Results Component Value Reference Range Notes HEMOGLOBIN A1C (GLYCOHEMOGLO BIN) Reviewed date:11/13/2023 03:48:21 PM Interpretation: Performing Lab: Notes/Report: HEMOGLOBIN A1C % (HH) 6.8 HEMOGLOBIN A1C (GLYCOHEMOGLO BIN) Reviewed date:04/30/2024 01:21:58 PM Interpretation: Performing Lab: Notes/Report: TOTAL HEMOGLOBIN (HGBA1C) 6.7 HEMOGLOBIN A1C (GLYCOHEMOGLO BIN) Reviewed date:07/19/2024 01:57:34 PM Interpretation: Performing Lab: Notes/Report: HEMOGLOBIN A1C % (HH) 6.6 Reason For Referral No Information Medications Medication SIG (Take, Route, Frequency, Duration) Notes Start Date End Date Status Vitamin B12 Not-Taki ng Extra Depth Orthopedic Shoes (1 Pair) with Customized Heat Molded Multidensity Innersoles (3 Pair) as directed Dx: IDDM/Polyneuropathy (E10.42), Hammertoe Foot Deformity (M20.41,M20.42), Preulcerative Skin Lesion(s) (L85.1) Active Ozempic Active B Complex Not-Taking Pravastatin Sodium 40 MG 1 tablet Orally Once a day for 30 day(s) Active No Doz Maximum Strength Not-Taking Armodafinil 250 MG 1 tablet in the morning Orally Once a day Not-Taking Calcium + D 600 mg 1 tablet with food Orally Once a day for 30 day(s) Not-Taking Mucinex Not-Taking Fexofenadine HCl 180 MG 1 tablet Swallow whole with water; do not take with fruit juices. Orally Once a day for 30 day(s) Not-Taking Lisinopril 10 MG 1 tablet Orally Once a day Not-Taking NovoLOG 100 UNIT/ML as directed Injection Active traMADol HCl 50 MG 1 tablet as needed Orally every 6 hrs Not-Taking Invokana Not-Taking Aspirin 325 MG 1 tablet as needed Orally once daily Not-Taking Calcium Magnesium Ac tive Semglee 60 units before bed Not-Taking Modafinil 300MG Not-Taking Trulicity Not-Taking Lantus 100 UNIT/ML 0.1 ml Subcutaneous Once a day for 30 days 10 Units Active Voltaren 1 % as directed Transdermal Four times a day for 30 days 02/04/2019 Not-Taking Losartan Potassium 25 MG 1 tablet Orally Active CeleBREX Not-Taking Farxiga Active Levemir 100 UNIT/ML as directed Subcutaneous 50-55 units before bed Not-Taking Gabapentin 300 MG 1 capsule Orally at bedtime Not-Taking Modafinil 100 MG 1 tablet in the morning Orally Once a day Not-Taking metFORMIN HCl 2000 mg 1 tablet with meal s Orally Twice a day for 30 day(s) Active Multivitamins as directed Orally Not-Taking HumaLOG sliding scale Not-Taking Vitamin D Not-Taking Immunizations Vaccine Route Administration Date Status Comme nts COVID-19 Moderna Vaccine Unknown 01/09/2021 Administere d Influenza Unknown 02/16/2015 Administered Influenza Unknown 02/16/2016 Administered Influenza Unknown 01/20/2017 Administered Influenza Unknown 04/13/2018 Refused Influenza Unknown 05/04/2018 Administered Influenza Unknown 04/05/2019 Administered Social History Tobacco Use: Social History Observation [...] Additional Findings: Tobacco non-user Current no nsmoker Section Notes: A1C 03/09/15 5.2 Flu Shot 01/2015 Eye Exam 2014 A1C 03/09/15 5.2 Flu Shot 01/2015 Eye Exam 2014 Problems Problem Type SNOMED Code ICD Code Onset Dates Problem Status W/U Status Risk Notes Problem Acquired hammer toe of right foot (5152944289219927 ) Other hammer toe(s) (acquired), right foot (M20.41) Active confirmed Problem Acquired hammer toe of left foot (3281393725492230 ) Other hammer toe(s) (acquired), left foot (M20.42) Active confirmed Problem Polyneuropathy due to diabetes mellitus type I (804051021) Type 1 diabetes mellitus with diabetic polyneuropathy (E10.42) Active confirmed Vital Signs Blood pressure diastolic 72 mm Hg 07/19/2024 Height 6ft in 07/19/2024 Blood pressure systolic 129 mm Hg 07/19/2024 Weight 266 lbs 07/19/2024 BMI 36.07 kg/m2 07/19/2024 Procedures Procedure Date Ordered Date Performed Result Body Sit e 11971-WZVHUTS NAIL, 6 OR MORE 09/04/2023 N/A 14928-MLIH SKIN LESIONS, 2 TO 4 09/04/2023 N/A 34355-XEMSEAL NAIL, 6 OR MORE 11/13/2023 N/A 60113-DKHH SKIN LESIONS, 2 TO 4 11/13/2023 N/A 32332, F8244-WRLIS/INJECT, JOINT/BURSA 11/13/2023 N/A 46707 I&D ABSCESS- SIMPLE,SINGLE 12/31/2023 N/A 19625-SFGRDIA NAIL, 6 OR MORE 01/26/2024 N/A 80086- Debride <25 sq cm 01/26/2024 N/A 64918-CUHR SKIN LESIONS, 2 TO 4 01/26/2024 N/A 82095-WBIAOYW NAIL, 6 OR MORE 04/30/2024 N/A 29551-IOLF SKIN LESIONS, OVER 4 04/30/2024 N/A 20901-TJSIKYY NAIL, 6 OR MORE 07/19/2024 N/A 38301-JKNV SKIN LESIONS, OVER 4 07/19/2024 N/A Encounters Encounter Location Date Provider Diagnosis [facility] [address] [address] 09/04/2023 Tanner Belkis Type 1 diabetes mellitus with diabetic polyneuropathy E10.42 ; Onychomycosis B35.1 ; Other hammer toe(s) (acquired), left foot M20.42 and Other hammer toe(s) (acquired), right foot M20.[address] [address] 11/13/2023 Tanner Belkis Type 1 diabetes mellitus with diabetic polyneuropathy E10.42 ; Onychomycosis B35.1 and Bursitis of intermetatarsal bursa of right foot M77.[address] [address] 12/31/2023 Tanneriona PalominoBelkis Abscess of toe, righ t L02.[address] [address] 01/26/2024 Tanner Belkis Type 1 diabetes mellitus with diabetic polyneuropathy E10.42 ; Tinea unguium B35.1 and Skin ulcer of toe of right foot, limited to breakdown of skin L97.[address] [address] 04/30/2024 Tanner Belkis Type 1 diabetes mellitus with diabetic polyneuropathy E10.42 and Tinea unguium B35.[address] [address] 07/19/2024 Tanner Belkis Type 1 diabetes mellitus with diabetic polyneuropathy E10.42 ; Other hammer toe(s) (acquired), right foot M20.41 ; Onychomycosis B35.1 and Other hammer toe(s) (acquired), left foot M20.[address] [address] 12/29/2023 Tanner Tamayo [address] [address] 04/21/2024 Tanner Belkis Assessments Encounter Date Diagnosis (ICD Code) Assessment Notes Treatment Notes Treatment Clinical Notes Section Notes 09/04/2023 Type 1 diabetes mellitus with diabetic polyneuropathy (ICD-10 - E10.42) 12/31/2023 Abscess of toe, right (ICD-10 - L02.611) Patient Educated with: WOUND CARE INSTRUCTIONS. pdf (WOUND CARE INSTRUCTIONS. pdf) 01/26/2024 Type 1 diabetes mellitus with diabetic polyneuropathy (ICD-10 - E10.42) 01/26/2024 Tinea unguium (ICD-10 - B35.1) 04/30/2024 Type 1 diabetes mellitus with diabetic polyneuropathy (ICD-10 - E10.42) 04/30/2024 Tinea unguium (ICD-10 - B35.1) 07/19/2024 Other hammer toe(s) (acquired), right foot (ICD-10 - M20.41) Patient Educated with: DIABETIC FOOT CARE INSTRUCTIONS. pdf (DIABETIC FOOT CARE INSTRUCTIONS. pdf) 11/13/2023 Type 1 diabetes mellitus with diabetic polyneuropathy (ICD-10 - E10.42) 07/19/2024 Type 1 diabetes mellitus with diabetic polyneuropathy (ICD-10 - E10.42) 07/19/2024 Onychomycosis (ICD-10 - B35.1) 11/13/2023 Onychomycosis (ICD-10 - B35.1) 01/26/2024 Skin ulcer of toe of right foot, limited to breakdown of skin (ICD-10 - L97.511) Patient Educated with: WOUND CARE INSTRUCTIONS. pdf (WOUND CARE INSTRUCTIONS. pdf) 09/04/2023 Onychomycosis (ICD-10 - B35.1) 09/04/2023 Other hammer toe(s) (acquired), left foot (ICD-10 - M20.42) 11/13/2023 Bursitis of intermetatarsal bursa of right foot (ICD-10 - M77.51) Patient Educated with: RICE THERAPY.pdf (RICE THERAPY.pdf) Patient Educated with: INJECTIONTHER APY.pdf (INJECTIONTHE RAPY.pdf) 07/19/2024 Other hammer toe(s) (acquired), left foot (ICD-10 - M20.42) 09/04/2023 Other hammer toe(s) (acquired), right foot (ICD-10 - M20.41) Patient Educated with: DIABETIC FOOT CARE INSTRUCTIONS. pdf (DIABETIC FOOT CARE INSTRUCTIONS. pdf) 11/13/2023 Other Patient Educated with: RICE THERAPY.pdf (RICE THERAPY.pdf) Patient Educated with: INJECTIONTHER APY.pdf (INJECTIONTHE RAPY.pdf) 01/26/2024 Other 04/30/2024 Other Plan Of Treatment Pending Test Test Name Order Date Hemoglobin A1c 05/24/2015 X ray : Foot, left 3V 01/25/2013 X ray : Foot, right 3V 01/25/2013 48784-JVRFCGP NAIL, 6 OR MORE 11/10/2014 01681-BFBGJTO NAIL, 6 OR MORE 05/26/2014 38520-QISXEVZ NAIL, 6 OR MORE 08/25/2014 52497-BNXODSO NAIL, 6 OR MORE 08/02/2015 27903-TPLBFBH NAIL, 6 OR MORE 10/12/2015 29364-DKQDXLL NAIL, 6 OR MORE 03/09/2015 13932-VRFQRZA NAIL, 6 OR MORE 05/24/2015 68670-LNQAKDA NAIL, 6 OR MORE 12/21/2015 89787-MAWRVEI NAIL, 6 OR MORE 02/22/2016 05589-JMCSAZA NAIL, 6 OR MORE 05/01/2016 00827-GFPDKBX NAIL, 6 OR MORE 07/10/2016 10878-LQBRKCI NAIL, 6 OR MORE 09/19/2016 85080-MXIZKOL NAIL, 6 OR MORE 11/28/2016 88620-FYYYJAX NAIL, 6 OR MORE 02/03/2017 20261-DWXPEYN NAIL, 6 OR MORE 04/14/2017 94980-DRBBWLF NAIL, 6 OR MORE 01/25/2013 73242-NBVNZSP NAIL, 6 OR MORE 04/07/2013 74597-DDBBJZO NAIL, 6 OR MORE 07/12/2013 52529-VTQIROC NAIL, 6 OR MORE 09/22/2013 67412-DLJSZYS NAIL, 6 OR MORE 12/08/2013 58371-ZQLYYBB NAIL, 6 OR MORE 03/02/2014 15796-CTXGJJD NAIL, 6 OR MORE 06/17/2011 05137-XIZGAZX NAIL, 6 OR MORE 09/16/2011 67255-VPIYCYA NAIL, 6 OR MORE 11/04/2011 79519-CBIKMWK NAIL, 6 OR MORE 02/03/2012 29059-NNEPNJL NAIL, 6 OR MORE 06/01/2012 01988-OLYIAVK NAIL, 6 OR MORE 08/10/2012 74887-HQVOPQX NAIL, 6 OR MORE 10/15/2012 88497-RCRDCGB NAIL, 6 OR MORE 06/25/2017 22246-ORFIQMT NAIL, 6 OR MORE 08/27/2017 91792-YTYTCHI NAIL, 6 OR MORE 11/03/2017 41064-THTHPSF NAIL, 6 OR MORE 02/02/2018 09740-YEDIADD NAIL, 6 OR MORE 04/13/2018 23354-IEAMLVC NAIL, 6 OR MORE 06/25/2018 78722-XXQJJEG NAIL, 6 OR MORE 08/27/2018 21757-HBYCMSU NAIL, 6 OR MORE 02/04/2019 85220-GMAMRVF NAIL, 6 OR MORE 04/19/2019 92618-FZHQHHE NAIL, 6 OR MORE 06/28/2019 03604-IJSHBHC NAIL, 6 OR MORE 09/08/2019 15134-JVNUMXW NAIL, 6 OR MORE 12/02/2019 84257-JKGKITJ NAIL, 6 OR MORE 02/03/2020 75669-YGMNPPO NAIL, 6 OR MORE 04/06/2020 10682-AKSDKRR NAIL, 6 OR MORE 06/12/2020 92077-ZTUYQIC NAIL, 6 OR MORE 08/28/2020 46149-RQORMRQ NAIL, 6 OR MORE 11/09/2020 34386-FCHNQHO NAIL, 6 OR MORE 02/05/2021 45129-VZWTGRJ NAIL, 6 OR MORE 04/16/2021 49226-GPDXTXS NAIL, 6 OR MORE 07/23/2021 14503-UYNXMDQ NAIL, 6 OR MORE 10/01/2021 83643-VZISQWG NAIL, 6 OR MORE 12/17/2021 98104-FDDUNQI NAIL, 6 OR MORE 03/07/2022 99845-FTDDOMO NAIL, 6 OR MORE 05/23/2022 73301-RXXJQBO NAIL, 6 OR MORE 08/01/2022 93242-RUJKGTV NAIL, 6 OR MORE 11/07/2022 18195-OCQWFFR NAIL, 6 OR MORE 01/22/2023 60253-YCXGFKG NAIL, 6 OR MORE 04/16/2023 68999-ZZQXUQS NAIL, 6 OR MORE 07/03/2023 69153-LJDBSNZ NAIL, 6 OR MORE 09/04/2023 51874-QEZAXIB NAIL, 6 OR MORE 11/13/2023 16658-DBWHKDG NAIL, 6 OR MORE 01/26/2024 81384-QXAPJPT NAIL, 6 OR MORE 04/30/2024 41296-AUASWIH NAIL, 6 OR MORE 07/19/2024 58160-Vfphszeh Plate 07/03/2023 16184-Wbwwfard Plate 02/04/2019 79813-Cwyoidlw Plate 04/13/2018 03924-Pvsgsftv Plate 06/01/2012 32263-Dqgchaeb Plate 02/03/2012 99673-Kujvywzf Plate 06/17/2011 34103-Kjwurvab Plate 09/16/2011 43764-Bitcujwx Plate 03/02/2014 51806-Lspntkuu Plate 12/08/2013 87443-Slyxbjpn Plate 09/22/2013 09661-Nahaykhp Plate 01/25/2013 28671-Wmhwetug Plate Each Additional 39280- Debride <25 sq cm 01/26/2024 02242 I&D ABSCESS- SIMPLE,SINGLE 024 09587 I&D ABSCESS- SIMPLE,SINGLE 017 60382-KPPG SKIN LESIONS, OVER 4 07/20/19 25 09883-LFUM SKIN LESIONS, OVER 4 04/30/20 24 39922-IXDZ SKIN LESIONS, 2 TO 4 01/26/20 24 73490-XABS SKIN LESIONS, 2 TO 4 02/03/20 18 10469-HZGO SKIN LESIONS, 2 TO 4 11/04/19 18 60187-RRKV SKIN LESIONS, 2 TO 4 08/28/19 18 38837-AGAB SKIN LESIONS, 2 TO 4 06/25/19 19 04463-HQEY SKIN LESIONS, 2 TO 4 08/28/19 19 50152-QMKU SKIN LESIONS, 2 TO 4 04/13/20 18 98141-ABXC SKIN LESIONS, 2 TO 4 02/05/20 19 92969-LIKG SKIN LESIONS, 2 TO 4 04/19/20 19 16114-QFRT SKIN LESIONS, 2 TO 4 09/08/19 20 80422-RPCO SKIN LESIONS, 2 TO 4 06/28/19 20 20861-VRRG SKIN LESIONS, 2 TO 4 06/12/19 21 41805-ZUGX SKIN LESIONS, 2 TO 4 04/06/20 20 40778-QJYO SKIN LESIONS, 2 TO 4 02/03/20 20 07223-HQLQ SKIN LESIONS, 2 TO 4 12/02/19 20 09598-AMJI SKIN LESIONS, 2 TO 4 11/13/19 15301-ZOOH SKIN LESIONS, 2 TO 4 09/04/19 45028-VGIS SKIN LESIONS, 2 TO 4 07/03/19 38378-IOOT SKIN LESIONS, 2 TO 4 04/16/20 23 82321-LJAX SKIN LESIONS, 2 TO 4 01/23/20 49245-STYI SKIN LESIONS, 2 TO 4 11/08/19 87250-QNQM SKIN LESIONS, 2 TO 4 08/02/19 69464-CVIW SKIN LESIONS, 2 TO 4 05/23/19 19734-GKBV SKIN LESIONS, 2 TO 4 03/07/20 39194-QIWN SKIN LESIONS, 2 TO 4 12/18/19 66954-TMZR SKIN LESIONS, 2 TO 4 10/02/19 99767-MMIQ SKIN LESIONS, 2 TO 4 07/24/19 92825-HLOS SKIN LESIONS, 2 TO 4 04/16/20 22691-YWJM SKIN LESIONS, 2 TO 4 02/06/20 21 97205-AMEK SKIN LESIONS, 2 TO 4 11/10/19 21 29911-UDRR SKIN LESIONS, 2 TO 4 08/29/19 21 50399-PNFZ SKIN LESIONS, 2 TO 4 03/02/20 14 69894-EYYC SKIN LESIONS, 2 TO 4 09/23/19 14 28312-AKVJ SKIN LESIONS, 2 TO 4 12/09/19 14 31197-DQEP SKIN LESIONS, 2 TO 4 01/26/20 13 49648-GAQP SKIN LESIONS, 2 TO 4 07/12/19 14 34158-LIAW SKIN LESIONS, 2 TO 4 04/07/20 13 65668-JWNC SKIN LESIONS, 2 TO 4 09/16/19 12 80355-MNJG SKIN LESIONS, 2 TO 4 06/17/19 12 46607-EFLH SKIN LESIONS, 2 TO 4 11/04/19 12 46495-WVHJ SKIN LESIONS, 2 TO 4 02/03/20 12 23173-JEPQ SKIN LESIONS, 2 TO 4 06/01/19 13 34798-TKRJ SKIN LESIONS, 2 TO 4 10/16/19 13 56436-YONN SKIN LESIONS, 2 TO 4 08/11/19 13 84922-MUGQ SKIN LESIONS, 2 TO 4 06/25/19 71281-YGVK SKIN LESIONS, 2 TO 4 04/14/20 92787-WNWA SKIN LESIONS, 2 TO 4 02/04/20 17 67493-RVHP SKIN LESIONS, 2 TO 4 11/29/19 17 03704-CONT SKIN LESIONS, 2 TO 4 07/10/19 17 10800-ZQYN SKIN LESIONS, 2 TO 4 09/20/19 17 75844-VIGP SKIN LESIONS, 2 TO 4 05/01/20 16 20489-YTCB SKIN LESIONS, 2 TO 4 02/22/20 16 42173-XHVL SKIN LESIONS, 2 TO 4 12/21/19 16 16157-BCNQ SKIN LESIONS, 2 TO 4 05/24/19 16 61550-KHNN SKIN LESIONS, 2 TO 4 03/09/20 15 67522-KJUM SKIN LESIONS, 2 TO 4 10/12/19 16 15751-DPYN SKIN LESIONS, 2 TO 4 08/02/19 16 27901-UMVP SKIN LESIONS, 2 TO 4 05/26/19 15 03978-OPPF SKIN LESIONS, 2 TO 4 11/11/19 15 65609-LCSY SKIN LESIONS, 2 TO 4 08/26/19 15 06095, J6943-MLOYI/INJECT, JOINT/BURSA 0 08/25/2014 18264, O1312-WBCWL/INJECT, JOINT/BURSA 1 05/31/2013 83082, F1392-QIOCZ/INJECT, JOINT/BURSA 0 11/07/2022 54680, J2045-QQELQ/INJECT, JOINT/BURSA 0 11/13/2023 99750, K2508-LRJST/INJECT, JOINT/BURSA 0 06/25/2018 93338, I2517-XOSVN/INJECT, JOINT/BURSA 0 02/02/2018 Next Appt Details Provider Name:Tanner Herbert Tamayo , 10/14/2024 03:45:00 PM, [address], [place], [address], Insurance Providers Payer Name Payer Address Payer Phone Subscriber Number Group Number Insured Name Patient Relationship to Insured Coverage Start Date Coverage End Date Medicare National [facility] [address] [place] [address] [id number] Coy Garza Self - patient is the insured [facility] [address] [place] [address] [id number] Coy Garza Self - patient is the insured Medical (General) History Medical History History ICD Code hypertension gall bladder problems sleep apnea Cholesterol Diabetic Surgical History Surgery Date(Month/Year) cholecystectomy 2001 kidney stones 2001,2002,2003 eye surgery 11/2023 Hospitalization History Reason Date(Month/Year) sleep study [facility]- Left eye 11/24/23 [facility]- [facility] a [facility] 05[facility]30 [facility] [place] 2x for back and 1 for tooth 01/2016 [facility]- MRI for herniated disc 02/24/15 [facility]- Tendon surgery right middle finger 08/29/14 [facility] Chest Pain 06/26/11
--- OUTSIDE RECORDS SUMMARY | 2024-09-01 16:55 | XMS_ITS ---
Author Organization [facility] Address [address] [place] [address] Care Team Providers Care Unified Communications Architect Name Role Phone Ulysses Escalante MD Primary Care Provider Unavail able Tanner Tamayo Unavailable [phone] Allergies Allergen (clinical drug ingredient) Drug/Non Drug [...] Ordered Date Performed Result Body Sit e 21171-RHTJAUW NAIL, 6 OR MORE 07/19/2024 N/A 42273-PAAS SKIN LESIONS, OVER 4 07/19/2024 N/A Encounters Encounter Location Date Provider Diagnosis [facility] [address] [address] 07/19/2024 Tanner Tamayo Type 1 diabetes mellitus [...] INSTRUCTIONS.pdf) Pending Test Test Name Order Date 31463-GEAYXHF NAIL, 6 OR MORE 07/19/2024 47146-PYCQ SKIN LESIONS, OVER 4 07/20/19 25 Next Appt Details Follow Up: prn, Reason: Provider Name:Tanner Tamayo , 10/14/2024 03:45:00 PM, [address] [facility], [address], [place], [address], Procedure Notes * Category Sub-Category Detail Notes [...] use of a nail nipper and/or dremel-type salt grinder, to a more viable healthy nail [...] to maintain effectiveness in symptomatic relief - 11780 Keratoma Treatment Parring or Cutting o f [...] instrumentation by the physician of record - 37244 Progress Notes * Coy LORENZ LDOB:[birth year] (63 yo M)Acc No.[id number]:07/19/2024 Progress Note Patient:?Coy LORENZ Provider:?Tanner Tamayo DPM :1960???Age:63 Y???Sex:Male Ishan e:07/19/2024 Address:[facility] [address] , [place], [facility] Pcp:Ulysses Escalante MD Subjective: * Chief Complaints: [...] [facility] tooth 01[facility]2016[facility]- [facility] fall 05[facility]30[facility]- [facility] eye 11[facility]24[facility] * Family History:?Mother: dece ased, tumor [...] one. ?Exercise: no. ?Marital status: . 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 * Medications:?TakingCalcium M agnesium [...] 2.?Type 1 diabetes mellitus with diabetic polyneuropathy?Procedure: 18944-IAHRIGX NAIL, 6 OR MORE ?Procedure: 83082-PWEG SKIN LESIONS, OVER 4 * Procedures:?Debride Nail [...] use of a nail nipper and/or dremel-type salt grinder, to a more viable healthy nail [...] to maintain effectiveness in symptomatic relief - 60214.?Keratoma Treatment:?Parring or Cutting of Benign Hyperkeratotic Lesion(s)?(-57) [...] instrumentation by the physician of record - 96314.? * Procedure Codes:?88159 DEBRI DE NAIL, 6 OR MORE, Modifiers: XS 25917 TRIM SKIN LESIONS, OVER 4, Modifiers: XS [...] Tamayo DPM Date:?2024 Generated for Wes matthews/Elvia/Mick on:?09/01/2024 04:54 PM [...] cture, No Charcot collapse/destruction noted at [facility] FOOTWEAR EVALUATION: worn, non-supportiv e, shoe gear properties exacerbate patient's foot/toe deformity [...]
== END 2024-09-01 14:09 | disposition home or self-care (01) ==
LOC: HO.BBR 14:08
PROVIDERS: PCP Internal Medicine; Visit Provider Internal Medicine
DX: E83.110 Hereditary hemochromatosis (principal)
CPT/HCPCS: 85018; 99195

== ENCOUNTER 2024-10-19 15:28 | Outpatient (REF) | payer MEDICARE, OTHER, SELFPAY ==
--- OUTSIDE RECORDS SUMMARY | 2024-10-19 16:53 | XMS_ITS | Data Portability ---
Author Organization [place] [facility], All[facility] Address [address] [address] Care Team Providers Care Nuclear Equipment Research Engineer Name Role Phone ANDRESSA REESE Primary Care Provider CHRISTI DORAN Referring Provider Assessment No assessment recorded. Plan of Treatment Reminders Order Date Submit Date Provider Last Modified By Organization Details Last Modified Time Details Appointments None recorded. Lab None recorded. Referral None recorded. Procedures None recorded. Surgeries None recorded. Imaging None recorded. Medication Orders fluticasone propionate 50 mcg/actuati on nasal spray,suspe nsion 2024 025 [id number], [address] [place], [address], 5 15:01:38 azelastine 137 mcg (0.1 %) nasal spray 2024 025 [id number], [address] [place], [address], 5 15:01:38 Patient TargetsNo targets recorded. Patient InstructionsNo instructions recorded. Reason for Referral None Reported. Problems Name Problem SNOMED Code Status Onset Date Resolution Date Notes Provider Name and Address Organization Details Recorded Time Acute sinusitis 56767829 Active 2015 Acute sinusitis, unspecifie d; Note: Date Diagnosed: 05/24/2015 2:35 AM (J01.90) Not Available [facility] 4 03:20:42 Nasal congestio n 07479240 Active 2015 Nasal congestion ; Note: Date Diagnosed: 05/24/2015 2:36 AM (R09.81) Not Available [facility] 4 03:20:41 Dizziness and giddiness 722092273 Active 2021 Dizziness and giddiness; Note: Date Diagnosed: 11/26/2021 12:42 PM (R42) Not Available [facility] 4 03:20:42 Posterior rhinorrhe a 58009559 Active 2015 Postnasal drip; Note: Date Diagnosed: 05/24/2015 2:35 AM (R09.82) Not Available [facility] 4 03:20:41 Sensorine ural hearing loss of bilateral ears 873722513 Active 2020 Sensorineu ral hearing loss, bilateral; Note: Date Diagnosed: 10/06/2020 2:38 PM (H90.3) Not Available [facility] 4 03:20:42 Obstructi ve sleep apnea syndrome 46537501 Active 2024 CHRISTINA LEA MD [address] [place] [address], [address] , [facility] 5 07:36:10 Deviated nasal septum 724310611 Active 2024 CHRISTINA LEA MD [address] [place] [address], [address] , [facility] 5 07:36:16 Problem Notes None recorded. Procedures Surgical History Date Name Laterality Status Provider Name and Address Organization Details Recorded Time Cholecystectomy completed CHRISTINA LEA MD [address] [place] [address],[address], [address], [facility] 09/03/2024 07:32:18 operation on urinary bladder completed CHRISTINA LEA MD [address] [place] [address],[address], [address], [facility] 09/03/2024 07:33:15 Imaging Results None recorded. Procedure Notes None recorded. Medical Equipment None Reported. Allergies No known drug allergies Medications Name Sig Start Date Stop Date Status Note LastModified by Organization Details LastModified Time losartan 50 mg tablet TAKE 1 TABLET BY MOUTH EVERY DAY active Not Available Not Available No t Available Augmentin 875 mg-125 mg tablet 1 tablet by mouth 08/30 completed Medicati on ID: [id number] D uration Value: 14 Prescri bed By Name: Christina howell MD Brand Name: Augmenti n Send Method: E-Prescr ibed Sub s Allowed: subs OK Medic ationGen ericName : Augmenti n Not Available Not Available Not Available pravastat in 40 mg tablet TAKE 1 TABLET BY MOUTH EVERY DAY active Not Available Not Available No t Available ibuprofen 800 mg tablet 2020 active Medicati on ID: [id number] B rand Name: ibuprofe n Send Method: E-Prescr ibed Sub s Allowed: subs OK Speci al Instruct ion: TAKE 1 TABLET BY MOUTH EVERY 8 HOURS NEEDED Gemini gonzalezalbertyamileh[place] Chanelic Name: ibuprofe n Not Available Not Available Not Available ofloxacin 0.3 % eye drops INSTILL 1 DROP INTO LEFT EYE FOUR TIMES A DAY 08/30 completed Not Available Not Available Not Available lisinopri l 20 mg tablet 10/06 completed Medicati on ID: [id number] D uration Value: 90 Brand Name: lisinopr il Send Method: E-Prescr ibed Sub s Allowed: subs OK Speci al Instruct ion: TAKE 1 TABLET BY MOUTH EVERY DAY Medi cationGe nericNam e: lisinopr il Not Available Not Available Not Available prednison e 5 mg tablet TAKE 8 TABLETS (40MG) ON DAY ONE, THEN DECREASE BY 1 TABLET DAILY OVER 8 DAYS 08/30 completed Not Available Not Available Not Available fexofenad ine 180 mg tablet 08/30 completed Medicati on ID: [id number] B rand Name: fexofena dine Sen d Method: E-Prescr ibed Sub s Allowed: subs OK Speci al Instruct ion: TAKE 1 TABLET BY MOUTH EVERY DAY Medi cationGe nericNam e: fexofena dine Not Available Not Available Not Available doxycycli ne monohydra te 100 mg tablet PLEASE SEE ATTACHED FOR DETAILED DIRECTIO NS 08/30 completed Not Available Not Available Not Available tramadol 50 mg tablet TAKE 1 -2 TABLETS NEEDED ORALLY ONCE A DAY 10 DAYS active Not Available Not Available No t Available doxycycli ne monohydra te 50 mg capsule PLEASE SEE ATTACHED FOR DETAILED DIRECTIO NS 08/30 completed Not Available Not Available Not Available prednisol one acetate 1 % eye drops,mary ann pension PLEASE SEE ATTACHED FOR DETAILED DIRECTIO NS 08/30 completed Not Available Not Available Not Available doxycycli ne monohydra te 100 mg capsule 05/22 completed Medicati on ID: [id number] D uration Value: 10 Reason: () Brand Name: doxycycl ine monohydr ate Send Method: E-Prescr ibed Sub s Allowed: subs OK Speci al Instruct ion: TAKE ONE CAPSULE TWICE A DAY UNTIL FINISHED Medicat ionGener icName: doxycycl ine monohydr ate Not Available Not Available Not Available paroxetin e 20 mg tablet TAKE 1 TABLET BY MOUTH EVERY DAY IN THE MORNING FOR 30 DAYS 08/30 completed Not Available Not Available Not Available metformin 1,000 mg tablet TAKE 1 TABLET BY MOUTH TWICE A DAY active Not Available Not Available No t Available losartan 25 mg tablet TAKE 1 TABLET BY MOUTH EVERY DAY 08/30 completed Not Available Not Available Not Available gabapenti n 300 mg capsule TAKE 1 CAPSULE BY MOUTH EVERY DAY FOR 30 DAYS active Not Available Not Available No t Available omeprazol e 20 mg capsule,d elayed release 2020 active Medicati on ID: [id number] B rand Name: omeprazo le Send Method: E-Prescr ibed Sub s Allowed: subs OK Speci al Instruct ion: TAKE 1 CAPSULE BY MOUTH EVERY DAY Medi cationGe nericNam e: omeprazo le Not Available Not Available Not Available aspirin 81 mg chewable tablet 08/30 completed Medicati on ID: [id number] B rand Name: aspirin Send Method: E-Prescr ibed Sub s Allowed: subs OK Medic ationGen ericName : aspirin Not Available Not Available Not Available furosemid e 20 mg tablet 08/30 completed Medicati on ID: [id number] B rand Name: furosemi de Send Method: E-Prescr ibed Sub s Allowed: subs OK Medic ationGen ericName : furosemi de Not Available Not Available Not Available gabapenti n 100 mg capsule TAKE 1 TABLET BY MOUTH 2 HR PRIOR TO RLS ONSET, INCREASE WEEKLY BY 1 TAB UP TO MAX 3 TABS AT BEDTIME active Not Available Not Available No t Available azelastin e 137 mcg (0.1 %) nasal spray SPRAY 2 SPRAYS TWICE A DAY BY INTRANAS AL ROUTE active Not Available Not Available No t Available methylpre dnisolone 4 mg tablets in a dose pack TAKE 6 TABLETS ON DAY 1 DIRECTED ON PACKAGE AND DECREASE BY 1 TAB EACH DAY FOR A TOTAL OF 6 DAYS 08/30 completed Not Available Not Available Not Available ipratropi um bromide 42 mcg (0.06 %) nasal spray SPRAY 2 SPRAYS INTO EACH NOSTRIL 3 TIMES A DAY active Not Available Not Available No t Available multivita min capsule 08/30 completed Medicati on ID: [id number] B rand Name: multivit denson Sen d Method: E-Prescr ibed Sub s Allowed: subs OK Medic ationGen ericName : multivit denson Not Available Not Available Not Available fluticaso ne propionat e 50 mcg/actua tion nasal spray,mary ann pension INSTILL 2 SPRAYS INTO BOTH NOSTRILS DAILY active Not Available Not Available No t Available ipratropi um bromide 21 mcg (0.03 %) nasal spray 05/22 completed Medicati on ID: [id number] D uration Value: 30 Reason: () Brand Name: ipratrop ium bromide Send Method: E-Prescr ibed Sub s Allowed: subs OK Medic ationGen ericName : ipratrop ium bromide Not Available Not Available Not Available oxycodone 5 mg tablet TAKE 1 TABLET EVERY 4 TO 6 HOURS NEEDED 08/30 completed Not Available Not Available Not Available clindamyc in 1 % lotion PLEASE SEE ATTACHED FOR DETAILED DIRECTIO NS active Not Available Not Available No t Available Novolog FlexPen U-100 Insulin aspart 100 unit/mL (3 mL) subcutane ous 30-35 UNITS, OR DIRECTED , SUBCUTAN EOUSLY, 2-3X DAILY, AC PLUS 2 UNITS TO PRIME PEN WITH EACH DOSE active Not Available Not Available No t Available BD Ultra-Fin e Short Pen Needle 31 gauge x 5/16 DIRECTED APPLIED TO SKIN ONCE A DAY 90 DAYS active Not Available Not Available No t Available Super B Complex + C 150 mg tablet 08/30 completed Medicati on ID: [id number] B rand Name: Super B Complex + C Send Method: E-Prescr ibed Sub s Allowed: subs OK Medic ationGen ericName : Super B Complex + C Not Available Not Available Not Available Lantus Solostar U-100 Insulin 100 unit/mL (3 mL) subcutane ous pen INJECT 60 UNITS UNDER THE SKIN DAILY active Not Available Not Available No t Available Vitamin D3 100 mcg (4,000 unit) capsule 08/30 completed Medicati on ID: [id number] B rand Name: Vitamin D3 Send Method: E-Prescr ibed Sub s Allowed: subs OK Medic ationGen ericName : Vitamin D3 Not Available Not Available Not Available testoster one 1.62 % (20.25 mg/1.25 gram) transderm al gel packet PLACE 1 PACKET ONTO THE SKIN DAILY. 08/30 completed Not Available Not Available Not Available Farxiga 5 mg tablet TAKE 1 TABLET BY MOUTH EVERY DAY active Not Available Not Available No t Available Trulicity 0.75 mg/0.5 mL subcutane ous pen injector 08/30 completed Medicati on ID: [id number] B rand Name: Dave barry Send Method: E-Prescr ibed Sub s Allowed: subs OK Speci al Instruct ion: INJECT 0.75 MG ONCE A WEEK SUBCUTAN EOUSLY M edicayamileo nGeneric Name: Dave barry Not Available Not Available Not Available Admelog SoloStar U-100 Insulin lispro 100 unit/mL subcutane ous pen PLEASE SEE ATTACHED FOR DETAILED DIRECTIO NS active Not Available Not Available No t Available FreeStyle Hardik 14 Day Sensor kit 2020 active Medicati on ID: [id number] B rand Name: FreeStyl e Hardik 14 Day Sensor S end Method: E-Prescr ibed Sub s Allowed: subs OK Speci al Instruct ion: CHANGE SENSOR EVERY 14 DAYS DIRECTED Medicat ionGener icName: FreeStyl e Hardik 14 Day Sensor Not Available Not Available Not Available Ozempic 2 mg/dose (8 mg/3 mL) subcutane ous pen injector INJECT 2 MG SUBCUTAN EOUSLY EVERY 7 DAYS active Not Available Not Available No t Available Dexcom G7 Sensor device USE DIRECTED TO MONITOR GLUCOSE, CHANGE EVERY 10 DAYS active Not Available Not Available No t Available Vitals Date Recorded Body height Body mass index (BMI) Body weight Provider Name and Address Organization Details Last Updated DateTime 08/30/2024 180.34 cm 36.3 kg/m2 316153.02 g Cynthia Velasquez [place] - [facility] 08/30/2024 14:26:40 Social History None recorded. Functional Status None recorded. Mental Status None recorded. Family History Nothing Reported Notes:Cancer: Lung cancer - mother. Unspecified type of cancer - brother(s). Ears: Hearing loss after age 18 - brother(s). Medical History Condition Response Diabetes Y Allergies/Hayfever Y Hypertension Y Sleep Disorder Y Past Encounters Encounter ID Performer Location Encounter Start Date Encounter Closed Date Diagnosis/Indication Diagnosis SNOMED-CT Code Diagnosis ICD10 Code Diagnosis Note [id number] CHRISTINA LEA MD [facility] [address] [address] 08/30/2024 13:50:55 08/30/2024 15:04:05 Nasal congestion 96797986 R09.81 63-year-ol d male with obstructiv e sleep apnea on CPAP for 20 years, which is functionin g well, presents today for evaluation of deviated septum. He was recommende d to have surgical consult given daytime fatigue and frequent awakenings . I reviewed his CT showing septal spur to the right. On nasal decongesta nts, he is not having any trouble with airflow. I recommende d stopping the Afrin which he has been on for the past 2 to 3 months and using dual combinatio n therapy. We discussed that correcting the deviated septum may help improve airflow marginally but I am not convinced it will help him with his daytime fatigue as I think his nighttime awakenings are multifacto rial. Obstructiv e sleep apnea syndrome 01148424 G47.33 Deviated nasal septum 12 0227633 J34.2 Health Concerns Section Related Observation LastModified by Organization Detai ls LastModified Time None Recorded Concern Status LastModified by Organization Details LastModified Time None Recorded Advance Directives Directive None Recorded Payers Insurance Date Sequence Insurance Name Policy Number Policy Ozuna Covered Member ID Ozuna Member ID Guarantor Name 08/30/2024 2 [facility] [id number] Coy Garza [id number] Coy Garza 08/30/2024 1 [place] [facility] Coy Garza [id number] Coy Garza Notes Date Note Type Note Provider Name and Address Organization Details Recorded Time 08/30/2024 text/html 63 yo M with OSAUsing full face mask for JD, 20 yearsHas residual daytime sleepinessCPAP seems to be functioning wellWakes up frequently Uses nasal spray during the daysaline and Afrin for 2-3 monthstried prescription medications not opening the noseno sinus infections allergies CT 03/2024 Nasal septum is deviated to the right with a right nasal septal spur. No nasal polyps identified. just recovered from bladder surgery 5 days ago CHRISTINA LEA MD [address] [place] [address], [place], [address], [facility] - [facility] 09/03/2024 07:37:29
== END 2024-10-19 15:29 | disposition home or self-care (01) ==
LOC: HO.BBR 15:28
PROVIDERS: PCP Internal Medicine; Visit Provider Internal Medicine
DX: D75.1 Secondary polycythemia (principal)
CPT/HCPCS: 85018; 99195

== ENCOUNTER 2024-11-16 14:31 | Outpatient (REF) | payer MEDICARE, OTHER, SELFPAY ==
--- OUTSIDE RECORDS SUMMARY | 2024-10-14 11:45 | XMS_ITS ---
Author Organization [facility] Address [address] [facility] [place] [address] Care Team Providers Care Assistant Controller Name Role Phone Ulysses Escalante MD Primary Care Provider Unavail Tanner Art Unavailable [phone] Encounters Encounter Location Date Provider Diagnosis [address] [address] 10/14/2024 Tanner Tamayo Plan Of Treatment Next Appt Details Provider Name:Tanner Tamayo , 01/20/2025 03:45:00 PM, [address] [address], [place], [address], Progress Notes * Coy LORENZ LDOB:[birth year] (64 yo M)Acc No.[id number]:10/14/2024 Progress Note Patient: Coy FONSECA Provider: Diana Tamayo DPM :1960 A ge:63 Y S ex:Male Date:10/14/2024 Address:[address], [place] Pcp:Ulysses Escalante MD Subjective: * Chief Complaints: [...] 10/14/2024 Generated for Wes matthews/Elvia/Mick on: 0 11/16/2024 03:37 PM EDT
--- OUTSIDE RECORDS SUMMARY | 2024-11-16 15:38 | XMS_ITS | Clinical Summary ---
Author Organization [facility] Address [address] [place] [address] Care Team Providers Care Beverage Distiller Name Role Phone Ulysses Escalante MD Primary [...] by mouth daily. 0 Active Multiple Minerals (AFMCHIH-THTZWHWUJ-YGS C) TABS Take 371 mg by mouth [...] 85 01/05/2024 1:53 PM EDT Temperature 36.5 C (97.7 F) 01/05/2024 1:53 PM EDT Respiratory Rate - - Oxygen Saturation 97% [...] 10/28/2003 Fall Risk Assessment 10/28/2023 Influenza Vaccine (Season Ended) 2025 RSV Adult > 60+ Yrs or Pregn ant (1 - 1-dose 75+ series) 2033 Hepatitis B Vaccines Aged Out No long er eligible based on patient's age to complete this topic RSV Ped < 20 months Aged Out No longe r eligible based on patient's age to complete this topic Care Teams Beverage Distiller Relationship Specialty Start Date End Date Ulysses Escalante MD PCP - General Internal Medicine 04/24/17
--- OUTSIDE RECORDS SUMMARY | 2024-11-16 15:38 | XMS_ITS | Clinical Summary ---
Author Organization [facility] ter Address [address] [place] [address] Phone Care Team Providers Care Lock Operator Name Role Phone Ulysses Escalante MD Primary Care Provider [phone] Encounters Date Type Department Care Team Description 08/26/2024 Lab Requisition [facility] - Main Lab [address] [facility] [place] [address] Eduard Mendoza MD Personal history of malignant neoplasm of bladder from Last 3 Months Medical History Medical [...] 04/02/2022 10:34 AM EST Plan of Treatment Upcoming Encounters Date Type Department Care Team (Late st Contact Info) Description 11/16/2024 7:45 PM EDT Appointment [facility] MRI [address] [place] [address] Health Maintenance Due Date Last Done Comments Diabetes: Annual GFR (Glomerular Filtration Rate) 1958 Diabetes: Annual Foot Exam 1968 Diabetes: Annual Retina Eye Exam 1968 DTaP,Tdap,and Td Vaccines (1 - Tdap) 1977 Pneumococcal Vaccine: 50+ Years (1 of 2 - PCV) 1977 RSV [...] Albumin-Creatinine Ratio (uACR) 12/20/2024 12/21/2023 Influenza Vaccine (#1) 2025 3, 02/19/2022, 04/23/2021 Zoster Vaccines Completed 02/19/2022, 11/21/2021 [...] Personal history of malignant neoplasm of bladder from Last 3 Months Results * Anatomic pathology outside consult (08/25/2024) Final Diagnosis 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 Urinary Bladder, tumor: Labeled bladder tumor . Received in formalin are 4 soft, hernandez-red tissue fragments, measuring 0.4x0.3x0.2cm in greatest diameters, which are wrapped in paper and submitted in toto, one cassette, 4 pieces, multiple levels. /al 08/30/2024 2:40 PM EDT [facility] Disclaimer Unless otherwise specified, all tissue is 10% NB formalin fixed and paraffin embedded. Technical pathology services provided by [facility] [address] [facility] [address] [place] [address] (CLIA #[id number]/S diana Michael MD, Club Waiter/Waitress) 08/30/2024 2:40 PM EDT [facility] Tissue Urinary bladder structure / Unknown 08/25/2024 08/26/2024 4:37 PM EDT us Eduard Mendoza MD LAB PATHOLOGY ORDERABLES Final Result [facility] [address] [place] [address], [place] [phone] from Last 3 Months Insurance MEDICARE [facility] Care Teams Lock Operator Relationship Specialty Start Date End Date Ulysses Escalante MD [address] [place] [address] PCP - General Internal Medicine 10/05/13
--- OUTSIDE RECORDS SUMMARY | 2024-11-16 15:38 | XMS_ITS | Data Portability ---
Author Organization [facility] Patient's Home Address [address] [facility] [address] [place] [address] Care Team Providers Care Director Of Patient Financial Services Name Role Phone ANDRESSA REESE Primary Care Provider [phone] MARIEL BELTRAN Reception Clerk Assessment No assessment recorded. Plan of Treatment [...] optic nerve No observ ation record ed. [email or web address] Not Available 11/12 10:32:03 Result Notes None recorded. Procedures Surgical History Date Name Laterality Status Provider Name and Address Organization Details Recorded Time 4 Retinal Detachment Repair completed Amita Wetzel [facility] 11/12/2023 13:30:21 4 [facility]/12/2023 13:30:00 Imaging Results None recorded. Procedure Notes None [...] Not Available No t Available Dexcom G7 Gate Clerk USE DIRECTED TO MONITOR GLUCOSE active Not [...] SNOMED-CT Code Diagnosis ICD10 Code Diagnosis Note [id number] Vic Anderson MD MAIN OFFICE [address] [place] [address] 11/12/2023 12:46:00 11/12/2023 14:29:10 Hemorrhage of left vitreous body [id number] 91125 H43.12 patient saw a hair in left eye 2 months agohad retinal laser x 2 at outside officevisi on has never recovered and hasn't had f/ugood red reflex, retina appears attached but hazy view refer to retina DAPHNIE for evaluation /treatment Amblyopia of right eye [id number] 21733 H53.001 left eye was always dominant eye 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 5302886235 109 E11.3599 NVE ODunable to view [facility] Concerns Section Related Observation LastModified by Organization Detai ls LastModified Time None Recorded Concern Status LastModified by Organization Details LastModified Time None Recorded Advance Directives Directive None Recorded Payers Insurance Date Sequence Insurance Name Policy Number Policy Ozuna Covered Member ID Ozuna Member ID Guarantor Name 11/12/2023 1 [place] [employer] Coyasha Garza [id number] Coy Garza 11/12/2023 2 [facility] F (MEDICARE SUPPLEMENT) [id number] Coy Garza [id number] Coy Garza 11/12/2023 2 [facility] [id number] Coy Garza [id number] Coy Garza
== END 2024-11-16 14:32 | disposition home or self-care (01) ==
LOC: HO.BBR 14:31
PROVIDERS: PCP Internal Medicine; Visit Provider Internal Medicine
DX: E83.110 Hereditary hemochromatosis (principal)
CPT/HCPCS: 85018; 99195

== ENCOUNTER 2024-12-14 14:08 | Outpatient (REF) | payer MEDICARE, OTHER, SELFPAY ==
--- OUTSIDE RECORDS SUMMARY | 2024-10-14 11:45 | XMS_ITS ---
Author Organization [facility] Address [address] [facility] [place] [address] Care Team Providers Care Sales And Marketing Assistant Name Role Phone Ulysses Escalante MD Primary Care Provider Unavail Tanner Art Unavailable [phone] Encounters Encounter Location Date Provider Diagnosis [address] [address] 10/14/2024 Tanner Tamayo Plan Of Treatment Next Appt Details Provider Name:Tanner Tamayo , 01/20/2025 03:45:00 PM, [address] [address], [place], [address], Progress Notes * Coy LORENZ LDOB:[birth year] (64 yo M)Acc No.[id number]:10/14/2024 Progress Note Patient: Coy FONSECA Provider: Diana Tamayo DPM :1960 A ge:63 Y S ex:Male Date:10/14/2024 Address:[address], [place] Pcp:Ulysses Escalante MD Subjective: * Chief Complaints: [...] 10/14/2024 Generated for Wes matthews/Elvia/Mick on: 0 12/14/2024 02:52 PM EDT
--- OUTSIDE RECORDS SUMMARY | 2024-12-14 14:52 | XMS_ITS | Data Portability ---
Author Organization [place] - [facility], Allergy Address [address] [address] Care Team Providers Care Animal Nutritionist Name Role Phone ANDRESSA REESE Primary Care Provider CHRISTI DORAN Referring Provider [phone] Assessment No assessment recorded. Plan of Treatment Reminders Order Date Submit Date Provider Last Modified By Organization Details Last Modified Time Details Appointments None recorded. Lab None recorded. Referral None recorded. Procedures None recorded. Surgeries None recorded. Imaging None recorded. Medication Orders fluticasone propionate 50 mcg/actuati on nasal spray,suspe nsion 2024 025 [facility]/Pharmacy #[id number], [address] [place], [address], 5 15:01:38 azelastine 137 mcg (0.1 %) nasal spray 2024 025 [facility]/Pharmacy #[id number], [address] [place], [address], 5 15:01:38 Patient TargetsNo targets recorded. Patient InstructionsNo instructions recorded. Reason for Referral None Reported. Problems Name Problem SNOMED Code Status Onset Date Resolution Date Notes Provider Name and Address Organization Details Recorded Time Acute sinusitis 13423799 Active 2015 Acute sinusitis, unspecifie d; Note: Date Diagnosed: 05/24/2015 2:35 AM (J01.90) Not Available [facility] 4 03:20:42 Nasal congestio n 15134479 Active 2015 Nasal congestion ; Note: Date Diagnosed: 05/24/2015 2:36 AM (R09.81) Not Available [facility] 4 03:20:41 Posterior rhinorrhe a 94916833 Active 2015 Postnasal drip; Note: Date Diagnosed: 05/24/2015 2:35 AM (R09.82) Not Available [facility] 4 03:20:41 Sensorine ural hearing loss of bilateral ears 568203190 Active 2020 Sensorineu ral hearing loss, bilateral; Note: Date Diagnosed: 10/06/2020 2:38 PM (H90.3) Not Available [facility] 4 03:20:42 Dizziness and giddiness 337757628 Active 2021 Dizziness and giddiness; Note: Date Diagnosed: 11/26/2021 12:42 PM (R42) Not Available [facility] 4 03:20:42 Obstructi ve sleep apnea syndrome 78996397 Active 2024 CHRISTINA LEA MD [address] [place] [address],[place] [address], [place], [address] , [facility] - [facility] 5 07:36:10 Deviated nasal septum 051404224 Active 2024 CHRISTINA LEA MD [address] [place] [address],[place] [address], [place], [address] , [facility] - [facility] 5 07:36:16 Problem Notes None recorded. Procedures Surgical History Date Name Laterality Status Provider Name and Address Organization Details Recorded Time Cholecystectomy completed CHRISTINA LEA MD [address] [place] [address],[address], [address], [facility] [place] 09/03/2024 07:32:18 operation on urinary bladder completed CHRISTINA LEA MD [address] [place] [address],[address], [address], [facility] [place] 09/03/2024 07:33:15 Imaging Results None recorded. Procedure [...] by mouth 08/30 completed Medicati on ID: [id number] D uration Value: 14 Prescri bed By [...] mg tablet 2020 active Medicati on ID: [id number] B rand Name: ibuprofe n Send Method: E-Prescr ibed Sub s Allowed: subs OK Speci al Instruct ion: TAKE 1 TABLET BY MOUTH EVERY 8 HOURS NEEDED M miguel a Chanelic Name: ibuprofe n Not Available Not Available Not Available ofloxacin 0.3 % eye drops INSTILL 1 DROP INTO LEFT EYE FOUR TIMES A DAY 08/30 completed Not Available Not Available Not Available lisinopri l 20 mg tablet 10/06 completed Medicati on ID: [id number] D uration Value: 90 Brand Name: lisinopr [...] mg tablet 08/30 completed Medicati on ID: 559642 B rand Name: fexofena dine Sen d [...] mg capsule 05/22 completed Medicati on ID: [id number] D uration Value: 10 Reason: () Brand [...] elayed release 2020 active Medicati on ID: [id number] B rand Name: omeprazo le Send Method: E-Prescr ibed Sub s Allowed: subs OK Speci al Instruct ion: TAKE 1 CAPSULE BY MOUTH EVERY DAY Medi cationGe nericNam e: omeprazo le Not Available Not Available Not Available aspirin 81 mg chewable tablet 08/30 completed Medicati on ID: 518341 B rand Name: aspirin Send Method: E-Prescr ibed Sub s Allowed: subs OK Medic ationGen ericName : aspirin Not Available Not Available Not Available furosemid e 20 mg tablet 08/30 completed Medicati on ID: 438704 B rand Name: furosemi de Send Method: [...] min capsule 08/30 completed Medicati on ID: [id number] B rand Name: multivit denson Sen d [...] nasal spray 05/22 completed Medicati on ID: [id number] D uration Value: 30 Reason: () Brand [...] mg tablet 08/30 completed Medicati on ID: [id number] B rand Name: Super B Complex + [...] unit) capsule 08/30 completed Medicati on ID: [id number] B rand Name: Vitamin D3 Send Method: [...] pen injector 08/30 completed Medicati on ID: 538779 B rand Name: Dave barry Send Method: E-Prescr ibed Sub s Allowed: subs OK Speci al Instruct ion: INJECT 0.75 MG ONCE A WEEK SUBCUTAN EOUSLY M edicatio nGeneric Name: Dave barry Not Available Not Available Not Available Admelog SoloStar U-100 Insulin lispro 100 unit/mL subcutane ous pen PLEASE SEE ATTACHED FOR DETAILED DIRECTIO NS active Not Available Not Available No t Available FreeStyle Hardik 14 Day Sensor kit 2020 active Medicati on ID: [id number] B rand Name: FreeStyl e Hardik 14 [...] Updated DateTime 08/30/2024 180.34 cm 36.3 kg/m2 635038.02 g Cynthia Velasquez [place] - [facility] 08/30/2024 14:26:40 Social History None recorded. Functional Status None recorded. Mental Status None recorded. Family History Nothing Reported Notes:Cancer: Lung cancer - mother. Unspecified type of cancer - brother(s). Ears: Hearing loss after age 18 - brother(s). Medical History Condition Response Allergies/Hayfever Y Diabetes Y Sleep Disorder Y Hypertension Y Past Encounters Encounter ID Performer Location Encounter Start Date Encounter Closed Date Diagnosis/Indication Diagnosis SNOMED-CT Code Diagnosis ICD10 Code Diagnosis Note [id number] CHRISTINA LEA MD [facility] [address] [address] 08/30/2024 13:50:55 08/30/2024 15:04:05 Nasal congestion 45586789 R09.81 63-year-ol d male with obstructiv e [...] multifacto rial. Obstructiv e sleep apnea syndrome 52310990 G47.33 Deviated nasal septum 12 7625649 J34.2 Health Concerns Section Related Observation LastModified by Organization Detai ls LastModified Time None Recorded Concern Status LastModified by Organization Details LastModified Time None Recorded Advance Directives Directive None Recorded Payers Insurance Date Sequence Insurance Name Policy Number Policy Ozuna Covered Member ID Ozuna Member ID Guarantor Name 08/30/2024 2 [facility] [id number] Coy Gazra [id number] Coy Garza 08/30/2024 1 [place] [employer] Coy Garza [id number] Coy Garza
--- OUTSIDE RECORDS SUMMARY | 2024-12-14 14:52 | XMS_ITS | Clinical Summary ---
Author Organization [facility] Address [address] [place] [address] Care Team Providers Care Tyre Retreader Name Role Phone Ulysses Escalante MD Primary [...] by mouth daily. 0 Active Multiple Minerals ([id number]-OQD C) TABS Take 371 mg by mouth [...] Fall Risk Assessment 10/28/2023 Influenza Vaccine (#1) 2025 RSV Adult > 60+ Yrs or Pregn ant (1 - 1-dose 75+ series) 2033 Hepatitis B Vaccines Aged Out No long er eligible based on patient's age to complete this topic RSV Ped < 20 months Aged Out No longe r eligible based on patient's age to complete this topic Care Teams Tyre Retreader Relationship Specialty Start Date End Date Ulysses Escalante MD PCP - General Internal Medicine 04/24/17
--- OUTSIDE RECORDS SUMMARY | 2024-12-14 14:53 | XMS_ITS | Clinical Summary ---
Author Organization [facility] Address [address] [place] [address] Care Team Providers Care Gut Puller Name Role Phone Unavailable Primary Care Provider Unavailabl e Encounters Date Type Department Care Team Description 11/18/2024 Transcribe Orders [facility] [address] Ulysses Escalante MD Pain of joint of left ankle and foot (Primary Dx) from Last 3 Months Social History Tobacco Use Types Packs/Day Years Used Date Smoking Tobacco: Never Assessed Sex and Gender Information Value Date Recorded Sex Assigned at Not on file Legal Sex Male 9:25 AM EDT Gender Identity Not on file Sexual Orientation Not on file Plan of Treatment Health Maintenance Due Date Last Done Comments Hepatitis C Virus Screening 1960 DTaP/Tdap/Td Vaccines (1 - Tdap) 1977 Colonoscopy 10/28/2003 Pneumococcal Vaccines 50+ (1 of 1 - PCV) 2008 Zoster (Shingles) Vaccine (1 of 2) 2008 COVID-19 Vaccine ( - 2023-2 5 season) 2024 Influenza Vaccine 12/17/2024 RSV Vaccine 60 years and old er and Patients (1 - 1-dose 75+ series) 2033 Hepatitis B Vaccines Aged Out No long er eligible based on patient's age to complete this topic Insurance MEDICARE PART A & B
--- OUTSIDE RECORDS SUMMARY | 2024-12-14 14:53 | XMS_ITS ---
Author Name [facility] Organization Unknown Problems Problem Status Onset Date Problem Type Date of Resoluti on Source Pain of joint of left ankle and foot active EncounterDiagnosisAct CCT
--- OUTSIDE RECORDS SUMMARY | 2024-12-14 14:53 | XMS_ITS | Clinical Summary ---
Author Organization [facility] Address [address] [facility] [address] [place] [phone] Phone Care Team Providers Care Tissue Inserter Name Role Phone Ulysses Escalante MD Primary Care Provider Allergies Active Allergy Reactions Criticality Noted Date Comments Bee Pollen 06/13/2017 Medications metFORMIN (GLUCOPHAGE) 1000 MG tablet Take 1,000 mg by mouth 2 (two) times a day with meals. Active pravastatin (PRAVACHOL) 40 MG tablet Take 40 mg by mouth daily. Active Bacillus coagulans-inulin 1 billion-250 cell-mg Cap Take 250 mg by mouth daily. Active blood-glucose meter,continuous (DEXCOM G7 MONUMENT SETTER) MiscIndications: Type 2 diabetes mellitus with peripheral neuropathy Use as directed to monitor glucose 1 each 12/10/19 23 Active LANTUS SOLOSTAR U-100 INSULIN 100 unit/mL (3 mL) InPn injection penIndications:T ype 2 diabetes mellitus with peripheral neuropathy Inject 60 Units under the skin daily. 60 mL 3 04/15/20 23 Active blood-glucose sensor (DEXCOM G7 SENSOR) DeviIndications: Type 2 diabetes mellitus with peripheral neuropathy USE DIRECTED TO MONITOR GLUCOSE, CHANGE EVERY 10 DAYS 9 each 3 11/10/19 24 Active losartan (COZAAR) 50 MG tablet Take 25 mg by mouth daily. Active CALCIUM-MAGNESIU M-ZINC ORAL Take by mouth. Act selma doxycycline monohydrate (ADOXA) 50 MG tablet Take 50 mg by mouth daily. Active ADMELOG SOLOSTAR U-100 INSULIN 100 unit/mL injection penIndications:T ype 2 diabetes mellitus with peripheral neuropathy INJECT 30-35 UNITS, SUBCUTANEOUSLY, 3 TIMES A DAY BEFORE MEALS PLUS 2 UNITS TO PRIME NEEDLE WITH EACH DOSE 60 mL 1 08/24/19 25 Active OZEMPIC 2 mg/dose (8 mg/3 mL) subcutaneous injection penIndications:T ype 2 diabetes mellitus with peripheral neuropathy INJECT 2 MG SUBCUTANEOUSLY EVERY 7 DAYS 3 mL 5 10/21/19 25 Active tirzepatide (MOUNJARO) 5 mg/0.5 mL PnIj subcutaneous penIndications:T ype 2 diabetes mellitus with peripheral neuropathy Inject 0.5 mL (5 mg total) under the skin once a week. 2 mL 1 11/30/19 25 Active dapagliflozin propanediol (FARXIGA) 5 mg tablet Take 5 mg by mouth daily. 025 Discontin ued(No longer taking) insulin aspart U-100 (NOVOLOG FLEXPEN U-100 INSULIN) 100 unit/mL (3 mL) injection penIndications:T ype 2 diabetes mellitus with peripheral neuropathy 30-35 units, or as directed, subcutaneously, 2-3x daily, AC; plus 2 units to prime pen with each dose 75 mL 3 12/02/19 24 025 Discontin ued(No longer taking) Active Problems Problem Noted Date Diagnosed Date Low testosterone in male 12/09/2022 Assessment & Plan (06/01/2024 4:30 PM EST): Testosterone had been running low normal/mildly low. We had added low dose testosterone w/o benefit in symptoms but w/ worsening of erythrocytosis and has since stopped testosterone. Had seen hematology & they are willing to do phlebotomy. Would also need JD under control given potential for testosterone to worsen JD. Assessment & Plan (12/15/2023 5:24 PM EDT): Testosterone had been running low normal/mildly low. We had added low dose testosterone w/o benefit in symptoms but w/ worsening of erythrocytosis and has since stopped testosterone. He is scheduled for follow up w/ hematology. Discussed options of remaining off testosterone (which is current plan, at least in the short term given lack of benefit) vs continuing or restarting rx in the future & managing worsening H/H via phlebotomy. Assessment & Plan (05/09/2023 1:30 PM EST): Testosterone has been running low normal/mildly low. TFTs, prolactin have been normal. LH/FSH high normal/minimally high. Discussed impact of age/weight on testosterone levels. Not sure I would consider him to have true hypogonadism and think it is unlikely a significant component of fatigue. With the high normal/minimally high LH/FSH, this would indicate potential testicular hypofunction & is NOT concerning for central disease, so does not need pituitary imaging. He has JD, which testosterone can worsen, but is using CPAP faithfully. He has erythrocytosis @ baseline, sees hematology & is on aspirin. Discussed potential worsening w/ testosterone rx, which typically results in lowering or discontinuing rx. Could also do phlebotomy via hematology. Discussed potential risks to CV system & prostate. Recent PSA was 1.3. Would advise yearly MONAE with PCP. Discussed a therapeutic trial of low dose testosterone to get the level closer to the mid normal range to see if any benefit with energy & if not, would not continue rx. Discussed options of injectable vs topical rx. Need to read prescribing information for specific rx as to where it can be applied & to be careful to avoid transfer to others, by allowing area to dry, covering it. Does have scleroderma, if levels do not improve, we can teach him or girlfriend to given IM injections. Will do labs, once has been on rx for 2-4 weeks, 4-8 hrs after applying gel. Assessment & Plan (12/09/2022 4:44 PM EDT): Had low testosterone done in evaluation of fatigue last year by Dr. Escalante. Had contacted me to address. I advised some additional testing, which he states was done via Dr. Escalante, but never received results of tests we ordered. States it was improved on repeat. Energy is better off of brittney. Will check labs 8-9 am, fasting. Obstructive sleep apnea Erythrocytosis Type 2 diabetes mellitus with peripheral neuropa thy Assessment & Plan (12/01/2024 5:32 PM EDT): Control has been good. No frequent or severe hypoglycemia.Will shift from trulicity to mounjaro to see if we can get better weight effect & due to issues w/ eyes, might be safer. Continue to work on eating healthy & keeping active. To call or send in BG with problems with glycemic control. Assessment & Plan (06/01/2024 4:31 PM EST): Control has been good. No frequent or severe hypoglycemia. Continue to work on eating healthy & keeping active. To call or send in BG with problems with glycemic control. Assessment & Plan (12/15/2023 5:18 PM EDT): Control reasonable. No frequent or severe hypoglycemia. Continue to work on eating healthy & keeping active. Advised to use dexcom clarity so we are able to access information from CGM. Can message me when he has done that & we can download/review. To call or send in BG with problems with glycemic control. Foot & nail care tood. Assessment & Plan (05/09/2023 1:33 PM EST): Control reasonable, not optimal. No frequent or severe hypoglycemia. Discussed progressive nature of disease. He has had leftover ozempic in pens, advised him to review instructions for use of pen/priming to ensure using correctly, if he is using correctly & still concerned, would contact the company. If hasn't been getting full dose, would stick with 1 mg dose for a while before increasing to 2 mg dose. If does appear to have been getting full rx, ok to go up to 2 mg dose if available. Should he start to have lows can lower insulins - if lows within 3-4 hrs of meal/novolog, to cut back on novolog, if overnight or w/ delay in food to cut back on basal (lantus) insulin. Can message w/ ?s or problems. Continue to work on eating healthy & keeping active. To call or send in BG with problems with glycemic control. Up to date with ophtho. Assessment & Plan (12/09/2022 4:42 PM EDT): Control good, based on CGM download. No frequent or severe hypoglycemia. No pattern to BG readings to guide rx adjustment, to continue to work on adjusting insulin doses to account for adjustments in carb intake/activity/glucose levels. Continue to work on eating healthy & keeping active. To call or send in BG with problems with glycemic control. Insulin/sensor adjustments due to changes in formulary, would like to try shifting trulicity to ozempic. Has no hx of retinopathy. Will do labs soon. To call if hasn't heard from us within 1-2 weeks. Up to date with ophtho. Foot & nail care good. BP under reasonable control. FDC current use of insulin watermaster current use of oral hypoglycemic drug Long-term current use of inj ectable noninsulin antidiabetic medication Essential hypertension Hyperlipidemia Type 2 diabetes mellitus wit h retinopathy, with long-term current use of insulin Assessment & Plan (12/01/2024 5:30 PM EDT): Following closely w/ ophtho following vitreous hemorrhage. Assessment & Plan (06/01/2024 4:32 PM EST): Had vitreous hemorrhage OS requiring surgery, ? Related to retinopathy or other? (Per ophtho note due to horseshoe tear, ? If tear due to retinopathy vs other/vitreous detachment). Had shifted to ozempic from trulicity last year, he was unaware of retinopathy when we shifted. 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 Advised he discuss use of ozempic w/ ophtho @ upcoming visit. Assessment & Plan (12/15/2023 5:20 PM EDT): Had vitreous hemorrhage OS requiring surgery, ? Related to retinopathy or other? Had shifted to ozempic from trulicity last year, he was unaware of retinopathy when we shifted. 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 Advised he discuss use of ozempic w/ ophtho @ upcoming visit. Type 2 diabetes mellitus with microalbuminuria Assessment & Plan (12/01/2024 5:33 PM EDT): BP well controlled. On ARB. Off of SGLT2i d/t frequent urination. Assessment & Plan (06/01/2024 4:32 PM EST): BP well controlled. On ARB & SGLT2i. Assessment & Plan (12/15/2023 5:27 PM EDT): Uncertain if this has been persistent. BP well controlled. On ARB & SGLT2i, discussed rationale/benefits of the use of the latter rx. Encounters Date Type Department Care Team Description 11/29/2024 4:00 PM EDT Office Visit [facility] Endocrinology [address] [place] [address] Jailene Yap MD Type 2 diabetes mellitus with peripheral neuropathy (Primary Dx); Type 2 diabetes mellitus with retinopathy, with long-term current use of insulin, macular edema presence unspecified, unspecified laterality, unspecified retinopathy severity; Type 2 diabetes mellitus with microalbuminuria; Long-term current use of injectable noninsulin antidiabetic medication; watermaster current use of oral hypoglycemic drug; FDC current use of insulin 11/29/2024 Orders Only [facility] Endocr[facility]ology [address] [place] [address] Provider, MD Manas 10/20/2024 Refill [facility] [address] [place] [address] [place] [address] Jailene Yap MD Medication Refill from Last 3 Months Immunizations Immunization Administration Dates Next Due Influenza, Unspecified Formulation 04/07/2023 Social History Tobacco Use Types Packs/Day Years Used Date Smoking Tobacco: Never Smokeless Tobacco: Never Tobacco Cessation:Counseling Given: Not Answered Alcohol Use Standard Drinks/Week Comments Not Currently 0 (1 standard drink = 0.6 oz pur e alcohol) social drinker of beer Education Answer Date Recorded Are you interested in more education? Not on celso e 09/13/2022 Are you concerned about learning? Not on file 09/13/2022 No 09/13/2022 No 09/13/2022 Digital Access Answer Date Recorded No 10/14/2022 No 10/14/2022 Reliable internet access at home? Not on file 10/14/2022 Device with a working camera? Not on file Sex and Gender Information Value Date Recorded Sex Assigned at Not on file Legal Sex Male 10:00 AM EDT Gender Identity Not on file Sexual Orientation Not on file Last Filed Vital Signs Vital Sign Reading Time Taken Comments Blood Pressure 120/70 11/29/2024 4:15 PM EDT Pulse 83 11/29/2024 4:15 PM EDT Temperature 36.3 C (97.4 F) 12/15/2023 3:25 PM EDT Respiratory Rate 20 12/15/2023 3:25 PM EDT Oxygen Saturation 98% 11/29/2024 4:15 PM EDT Inhaled Oxygen Concentration - - Weight 127.9 kg (282 lb) 11/29/2024 4:15 PM EDT Height 177.8 cm (5' 10 ) 11/29/2024 4:15 PM EDT Body Mass Index 40.46 11/29/2024 4:15 PM EDT Plan of Treatment Upcoming Encounters Date Type Department Care Team (Late st Contact Info) Description 05/30/2025 1:40 PM EST Office Visit [facility] Endocrinology [address] [phone] Jailene Yap MD [address] [place] [id number] [email or web address] Health Maintenance Due Date Last Done Comments Adult Td,Tdap Booster 1958 DEPRESSION SCREENING 1970 HEPATITIS C SCREENING 1976 PNEUMOCOCCAL VACCINES (50+ years) (1 of 2 - PCV) 1977 SMOKING STATUS SCREENING (On ce After 26 Yrs) 1984 COLOGUARD 10/28/2003 COLONOSCOPY 10/28/2003 COLORECTAL CANCER SCREENING 10/28/2003 FIT TEST 10/28/2003 FOBT 10/28/2003 SIGMOIDOSCOPY 10/28/2003 VIRTUAL COLONOSCOPY 10/28/2003 ZOSTER VACCINES (1 of 2) 2008 RSV VACCINE (1 - Risk 60-74 years 1-dose series) 2018 COVID-19 VACCINE ( - 2023-2 5 season) 2024 DIABETIC EYE EXAM 11/23/2024 11/24/2023, 11/12/2023 HEMOGLOBIN A1C 11/28/2024 05/31/2024 CREATININE LEVEL 05/31/2025 05/31/2024, 12/21/2023, 12/09/2022 POTASSIUM LEVEL 05/31/2025 05/31/2024, 12/21/2023, 12/09/2022 BLOOD PRESSURE 06/01/2025 11/29/2024 HEPATITIS A VACCINES Aged Out No long er eligible based on patient's age to complete this topic HIB VACCINES Aged Out No longer eligi ble based on patient's age to complete this topic MENINGOCOCCAL VACCINES (ACWY) Aged Out No longer eligible based on patient's age to complete this topic MENINGOCOCCAL VACCINES (B) Aged Out N o longer eligible based on patient's age to complete this topic Medical Devices Not on file Procedures Procedure Name Priority Date/Time Associated Diagnosis Comments OUTSIDE LAB Routine 11/20/2024 4:27 PM EDT HEMOGLOBIN A1C Routine 05/31/2024 4:02 PM EST Type 2 diabetes mellitus with peripheral neuropathy BASIC METABOLIC PANEL Routine 05/31/2024 4:02 PM EST Type 2 diabetes mellitus with peripheral neuropathy from Last 3 Months or Most Recently Relevant to Health Maintenance Results * Outside Lab (11/20/2024 4:27 PM EDT) Manas Provider LAB BLOOD ORDERABLES Elis l Result * (ABNORMAL) Hemoglobin A1c (05/31/2024 4:02 PM EST) HEMOGLOBIN A1C 6.4(H) 4.3 - 5.8 % [facility] Blood 05/31/2024 4:02 PM EST 05/31/2024 4:03 PM EST Jailene Yap MD LAB BLOOD ORDERABLES F inal Result [facility] [address] [place] [address] * (ABNORMAL) Basic metabolic panel (05/31/2024 4:02 PM EST) SODIUM 143 133 - 146 mmol/L [facility] CHLORIDE 104 96 - 108 mmol/L [facility] POTASSIUM 4.3 3.3 - 5.1 mmol/L [facility] CO2 25 21 - 35 mmol/L [facility] BUN 21(H) 6 - 19 mg/dL [facility] CREATININE 1.10 0.5 - 1.5 mg/dL [facility] GLUCOSE 136(H) 70 - 99 mg/dL [facility] CALCIUM 9.9 8.4 - 10.3 mg/dL [facility] EGFR 74 >59 mL/min/1.7 3m2 [facility] Comment:Estimated glomerular filtration rate calculated using the CKD-EPI refit equation. ANION GAP 18 10 - 20 mmol/L [facility] Blood 05/31/2024 4:02 PM EST 05/31/2024 4:03 PM EST Jailene Yap MD LAB BLOOD ORDERABLES F inal Result [facility] [address], [place] [phone] from Last 3 Months or Most Recently Relevant to Health Maintenance Insurance [employer] [facility] MEDICARE SUPPLEMENT MEDICARE PART A & B [employer] MEDICARE SUPPLEMENT MEDICARE PART A & B [employer] [facility] SUPPLEMENT [facility] MEDIC[facility] SUPPLEMENT [facility] MEDIC[facility] SUPPLEMENT MEDICARE PART A & B [employer] [facility] MEDICARE SUPPLEMENT MEDICARE PART A & B [employer] MEDICARE SUPPLEMENT MEDICARE PART A & B [employer] MEDICARE SUPPLEMENT [employer] [facility] MEDICARE SUPPLEMENT MEDICARE PART A & B Care Teams Tissue Inserter Relationship Specialty Start Date End Date Ulysses Escalante MD [address] [place] [address] PCP - General Internal Medicine 09/13/14 Additional Source Comments The information contained in this document represents components of the legal health record. It is not the complete legal health record.[facility]
--- OUTSIDE RECORDS SUMMARY | 2024-12-14 14:53 | XMS_ITS | Encounter Summary ---
Author Organization [facility] Address [address] [place] [address] Care Team Providers Care Packing Checker Name Role Phone Ulysses Escalante MD Primary Care Provider + [phone] Encounter Details Date Type Department Care Team (Late st Contact Info) Description 08/13/2024 Lab Requisition [facility] - Main Lab [address] [facility] [place] [address] Eduard Mendoza MD [address] [place] [phone] Neoplasm of uncertain behavior of bladder Social [...] 12:00 AM EDT) Final Diagnosis Urine, Voided, ([id number]): Suspicious for high grade urothelial carcinoma. Acute inflammation present. Results of UroVysion fluorescence in situ hybridization (FISH) testing: CEP3: Abnormal CEP7: Abnormal CEP17: Abnormal LSI 9p21: Normal Interpretation: Abnormal profile Controls stained appropriately. Note: Abnormal results are considered suspicious for urothelial carcinoma. 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 Urine, Voided, ([id number]): Received one ThinPrep slide for cytology and one ThinPrep slide for UroVysion FISH 08/17/2024 9:38 AM EDT [facility] Disclaimer Unless otherwise specified, all tissue is 10% NB formalin fixed and paraffin embedded. Technical pathology services provided by [facility] at [address] [facility] [address] [place] [address] (CLIA #[id number]/Leatha Michael MD, [employer]) 08/17/2024 9:38 AM EDT [facility] Tissue Urine specimen from urethra / Unknown 08/06/2024 08/13/2024 11:01 AM EDT us Eduard Mendoza MD LAB PATHOLOGY ORDERABLES Final Result [facility] [address] [place] [address], documented in this encounter Visit Diagnoses Diagnosis Neoplasm of uncertain behavior of bladder documented in this encounter Care Teams Packing Checker Relationship Specialty Start Date End Date Ulysses Escalante MD [address] [place] [address] PCP - General Internal Medicine 10/05/13 documented as of this encounter
== END 2024-12-14 14:09 | disposition home or self-care (01) ==
LOC: HO.BBR 14:08
PROVIDERS: PCP Internal Medicine; Visit Provider Internal Medicine
DX: D75.1 Secondary polycythemia (principal)
CPT/HCPCS: 85014; 85018; 99195

== ENCOUNTER 2025-01-04 13:14 | Outpatient (AMB) | payer MEDICARE, OTHER, SELFPAY ==
--- OUTSIDE RECORDS SUMMARY | 2024-10-14 11:45 | XMS_ITS ---
Author Organization [facility] Address [address] [facility] [place] [address] Care Team Providers Care Surgery Nurse Name Role Phone Ulysses Escalante MD Primary Care Provider Unavail Tanner Art Unavailable [phone] Encounters Encounter Location Date Provider Diagnosis [address] [address] 10/14/2024 Tanner Tamayo Plan Of Treatment Next Appt Details Provider Name:Tanner Tamayo , 01/20/2025 03:45:00 PM, [address] [address], [place], [address], Progress Notes * Coy LORENZ LDOB:[birth year] (64 yo M)Acc No.[id number]:10/14/2024 Progress Note Patient: Coy FONSECA Provider: Diana Tamayo DPM :1960 A ge:63 Y S ex:Male Date:10/14/2024 Address:[address], [place] Pcp:Ulysses Escalante MD Subjective: * Chief Complaints: [...] 0 10/14/2024 Generated for Wes matthews/Elvia/Mick on: 0 01/04/2025 02:24 PM EDT
--- OUTSIDE RECORDS SUMMARY | 2025-01-04 14:24 | XMS_ITS | Encounter Summary ---
Author Organization [facility] Address [address] [place] [address] Care Team Providers Care Shipping Specialist Name Role Phone Ulysses Escalante MD Primary Care Provider + [phone] Encounter Details Date Type Department Care Team (Late st Contact Info) Description 08/13/2024 Lab Requisition [facility] - Main Lab [address] [facility] [place] [address] Eduard Mendoza MD [address] [place] [phone] Neoplasm of uncertain behavior of bladder Social [...] 12:00 AM EDT) Final Diagnosis Urine, Voided, ([id number]): Suspicious for high grade urothelial carcinoma. Acute inflammation present. Results of UroVysion fluorescence in situ hybridization (FISH) testing: CEP3: Abnormal CEP7: Abnormal CEP17: Abnormal LSI 9p21: Normal Interpretation: Abnormal profile Controls stained appropriately. Note: Abnormal results are considered suspicious for urothelial carcinoma. 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 Urine, Voided, ([id number]): Received one ThinPrep slide for cytology and one ThinPrep slide for UroVysion FISH 08/17/2024 9:38 AM EDT [facility] Disclaimer Unless otherwise specified, all tissue is 10% NB formalin fixed and paraffin embedded. Technical pathology services provided by [facility] at [address] [address] [facility] [address] [place] [address] (CLIA #[id number]/Leatha Michael MD, Commercial Underwriter) 08/17/2024 9:38 AM EDT [facility] Tissue Urine specimen from urethra / Unknown 08/06/2024 08/13/2024 11:01 AM EDT us Eduard Mendoza MD LAB PATHOLOGY ORDERABLES Final Result [facility] [address] [place] [address], documented in this encounter Visit Diagnoses Diagnosis Neoplasm of uncertain behavior of bladder documented in this encounter Care Teams Shipping Specialist Relationship Specialty Start Date End Date Ulysses Escalante MD [address] [place] [address] PCP - General Internal Medicine 10/05/13 documented as of this encounter
--- OUTSIDE RECORDS SUMMARY | 2025-01-04 14:24 | XMS_ITS | Clinical Summary ---
Author Organization [facility] Address [address] [place] [phone] Phone Care Team Providers Care Dinkey Operator Name Role Phone Ulysses Escalante MD [...] mouth daily. Active blood-glucose meter,continuous (DEXCOM G7 BALLAST CLEANING OPERATOR) MiscIndications: Type 2 diabetes mellitus with peripheral [...] WITH EACH DOSE 60 mL 1 08/24/19 Active OZEMPIC 2 mg/dose (8 mg/3 mL) subcutaneous injection penIndications:T ype 2 diabetes mellitus with peripheral neuropathy INJECT 2 MG SUBCUTANEOUSLY EVERY 7 DAYS 3 mL 5 10/21/19 Active tirzepatide (MOUNJARO) 5 mg/0.5 mL PnIj subcutaneous penIndications:T ype 2 diabetes mellitus with peripheral neuropathy Inject 0.5 mL (5 mg total) under the skin once a week. 2 mL 1 11/30/19 Active Active Problems Problem Noted Date Diagnosed Date [...] with glycemic control. Up to date with Mesitis. Assessment & Plan (12/09/2022 4:42 PM EDT): [...] within 1-2 weeks. Up to date with Mesitis. Foot & nail care good. BP under reasonable control. 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 11/29/2024 Orders Only [facility] Endocrinology [address] [place] [address] ProviderManas MD 10/20/2024 Refill [facility] Endocrinology [address] [place] [address] [place] [address] Jailene Yap MD Medication Refill from Last [...] 1:40 PM EST Office Visit [facility] Endocrinology [address] [phone] Jailene Yap MD [address] [place] [phone] [email or web address] Due Date Last Done Comments [...] * Outside Lab (11/20/2024 4:27 PM EDT) Historical Provider LAB BLOOD ORDERABLES Elis l Result * (ABNORMAL) Hemoglobin A1c (05/31/2024 4:02 PM EST) HEMOGLOBIN A1C 6.4(H) 4.3 - 5.8 % [facility] Blood 05/31/2024 4:0 2 PM EST 05/31/2024 4:03 PM EST Jailene Yap MD LAB BLOOD ORDERABLES F inal Result [facility] [address] [place] [address] * (ABNORMAL) Basic metabolic panel (05/31/2024 4:02 PM EST) SODIUM 143 133 - 146 mmol/L [facility] CHLORIDE 104 96 - 108 mmol/L [facility] POTASSIUM 4.3 3.3 - 5.1 mmol/L [facility] CO2 25 21 - 35 mmol/L [facility] BUN 21(H) 6 - 19 mg/dL [facility] CREATININE 1.10 0.5 - 1.5 mg/dL [facility] GLUCOSE 136(H) 70 - 99 mg/dL [facility] CALCIUM 9.9 8.4 - 10.3 mg/dL [facility] EGFR 74 >59 mL/min/1.7 3m2 [facility] Comment:Estimated glomerular filtration rate calculated using the CKD-EPI refit equation. ANION GAP 18 10 - 20 mmol/L [facility] Blood 05/31/2024 4:02 PM EST 05/31/2024 4:03 PM EST Jailene Yap MD LAB BLOOD ORDERABLES F inal Result Performing Organization Address City/State/[facility] Co de Phone Number [facility] [address] [place] [address] from Last 3 Months or Most Recently Relevant to Health Maintenance Insurance [employer] [facility] EXTENSION MEDICARE SUPPLEMENT MEDICARE PART A & B [facility] SU[facility] MEDICARE PART A & B [employer] [facility] MEDICARE [place]LE[place] [address] [place] [address] MEDICARE SUPPLEMENT [facility] MEDICARE SUPPLEMENT MEDICARE PART A & B [facility] MEDICARE SUPPLEMENT MEDICARE PART A & B [facility] MEDICARE SUPPLEMENT MEDICARE PART A & [place] [address] [place] [address] MEDICARE SUPPLEMENT [employer] [facility] MEDICARE SUPPLEMENT MEDICARE PART A & B Care Teams Dinkey Operator Relationship Specialty Start Date End Date Ulysses Escalante MD [address] [place] [address] PCP - General Internal Medicine 09/13/14 Additional Source Comments The information contained in this document represents components of the legal health record. It is not the complete legal health record.[facility]
--- OUTSIDE RECORDS SUMMARY | 2025-01-04 14:24 | XMS_ITS | Clinical Summary ---
Author Organization [facility] Address [address] [place] [address] Care Team Providers Care Tourist Cabin Keeper Name Role Phone Unavailable Primary Care Provider Unavailabl e Encounters Date Type Department Care Team Description 11/18/2024 Transcribe Orders [facility] [place] [address] Ulysses Escalante MD Pain of joint of [...]
--- OUTSIDE RECORDS SUMMARY | 2025-01-04 14:24 | XMS_ITS | Clinical Summary ---
Author Organization [facility] Address [address] [place] [address] Care Team Providers Care Book Canvasser Name Role Phone Ulysses Escalante MD Primary [...] by mouth daily. 0 Active Multiple Minerals ([id number]-SUB C) TABS Take 371 mg by mouth [...] age to complete this topic Care Teams Book Canvasser Relationship Specialty Start Date End Date Ulysses Esaclante MD PCP - General Internal Medicine 04/24/17
== END 2025-01-04 13:17 | disposition home or self-care (01) ==
LOC: HO.HMGAL 13:14
PROVIDERS: PCP Internal Medicine; Visit Provider Registered Nurse Emergency
DX: J30.89 Other allergic rhinitis (principal)
CPT/HCPCS: 95117; 95165

== ENCOUNTER 2025-01-10 14:51 | Outpatient (REF) | payer MEDICARE, OTHER, SELFPAY ==
--- OUTSIDE RECORDS SUMMARY | 2024-10-14 11:45 | XMS_ITS ---
Author Organization [facility] Address [address] [facility] [place] [address] Care Team Providers Care General Merchandise Salesperson Name Role Phone Ulysses Escalante MD Primary Care Provider Unavail Tanner Art Unavailable [phone] Encounters Encounter Location Date Provider Diagnosis [address] [address] 10/14/2024 Tanner Tamayo Plan Of Treatment Next Appt Details Provider Name:Tanner Tamayo , 01/20/2025 03:45:00 PM, [address] [address], [place], [address], Progress Notes * Coy LORENZ LDOB:[birth year] (64 yo M)Acc No.[id number]:10/14/2024 Progress Note Patient: Coy FONSECA Provider: Diana Tamayo DPM :1960 A ge:63 Y S ex:Male Date:10/14/2024 Address:[address], [place] Pcp:Ulysses Escalante MD Subjective: * Chief Complaints: [...] 10/14/2024 Generated for Wes matthews/Elvia/Mick on: 0 01/10/2025 04:33 PM EDT
--- OUTSIDE RECORDS SUMMARY | 2025-01-10 16:34 | XMS_ITS | Encounter Summary ---
Author Organization [facility] Address [address] [place] [phone] Phone Care Team Providers Care Type Casting Machine Operator Name Role Phone Ulysses Escalante MD Primary Care Provider Encounter Details Date Type Department Care Team (Late st Contact Info) Description 12/28/2024 Orders Only [facility] Endocrinology [address] [place] [phone] Jailene Yap MD [address] [place] [phone] [email or web address] Social History Tobacco Use Types Packs/Day Years Used Date Smoking Tobacco: Never Smokeless Tobacco: Never Alcohol Use Standard Drinks/Week Comments Not Currently [...] on file Sexual Orientation Not on file documented as of this encounter Plan of Treatment Upcoming Encounters Date Type Department Care Team (Late st Contact Info) Description 05/30/2025 1:40 PM EST Office Visit [facility] Endocrinology [address] [phone] Jailene Yap MD [address] [place] [phone] [email or web address] documented as of this encounter Visit Diagnoses Not on filedocumented in this encounter Care Teams Type Casting Machine Operator Relationship Specialty Start Date End Date Ulysses Escalante MD [address] [place] [phone] PCP - General Internal Medicine 09/13/14 documented as of this encounter Additional Source Comments The information contained in this document represents components of the legal health record. It is not the complete legal health record.[facility]
--- OUTSIDE RECORDS SUMMARY | 2025-01-10 16:34 | XMS_ITS | Patient Health Record ---
[facility] Organization [facility] Address [address] [place] [address] Care Team Providers Care Consulting Analyst Name Role Phone Ulysses Escalante MD Primary Care Provider Unavail able Tanner Tamaoy Unavailable [phone] Allergies Allergen (clinical drug ingredient) Drug/Non Drug Allergy documented on EMR Reaction Allergy Type Onset Date Status environmental (uncoded) diarrhea Allergy Active Results Component Value Reference Range Notes HEMOGLOBIN A1C (GLYCOHEMOGLO BIN) Reviewed date:04/30/2024 01:21:58 PM Interpretation: Performing Lab: Notes/Report: TOTAL HEMOGLOBIN (HGBA1C) 6.7 HEMOGLOBIN A1C (GLYCOHEMOGLO BIN) Reviewed date:07/19/2024 01:57:34 PM Interpretation: Performing Lab: Notes/Report: HEMOGLOBIN A1C % (HH) 6.6 HEMOGLOBIN A1C (GLYCOHEMOGLO BIN) Reviewed date:10/25/2024 03:31:48 PM Interpretation: Performing Lab: Notes/Report: HEMOGLOBIN A1C % (HH) 7 Reason For Referral No Information Medications Medication SIG (Take, Route, Frequency, Duration) Notes Start Date End Date Status Mucinex Not-Taking No Doz Maximum Strength Not-Taking Armodafinil 250 MG 1 tablet in the morning Orally Once a day Not-Taking Gabapentin 300 MG 1 capsule Orally at bedtime Not-Taking Multivitamins as directed Orally Not-Taking Vitamin B12 Not-Taki ng Calcium + D 600 mg 1 tablet with food Orally Once a day; Duration: 30 day(s) Not-Taking Invokana Not-Taking Ozempic Active Lisinopril 10 MG 1 tablet Orally Once a day Not-Taking Pravastatin Sodium 40 MG 1 tablet Orally Once a day; Duration: 30 day(s) Active traMADol HCl 50 MG 1 tablet as needed Orally every 6 hrs Not-Taking Extra Depth Orthopedic Shoes (1 Pair) with Customized Heat Molded Multidensity Innersoles (3 Pair) as directed Dx: IDDM/Polyneuropathy (E10.42), Hammertoe Foot Deformity (M20.41,M20.42), Preulcerative Skin Lesion(s) (L85.1) Active B Complex Not-Taking CeleBREX Not-Taking Lantus 100 UNIT/ML 0.1 ml Subcutaneous Once a day; Duration: 30 days 10 Units Active Modafinil 100 MG 1 tablet in the morning Orally Once a day Not-Taking Losartan Potassium 25 MG 1 tablet Orally Active Voltaren 1 % as directed Transdermal Four times a day; Duration: 30 days 02/04/2019 Not-Taking metFORMIN HCl 2000 mg 1 tablet with meal s Orally Twice a day; Duration: 30 day(s) Active NovoLOG 100 UNIT/ML as directed Injection Active Trulicity Not-Taking Aspirin 325 MG 1 tablet as needed Orally once daily Not-Taking Calcium Magnesium Ac tive Semglee 60 units before bed Not-Taking Farxiga Active Levemir 100 UNIT/ML as directed Subcutaneous 50-55 units before bed Not-Taking Fexofenadine HCl 180 MG 1 tablet Swallow whole with water; do not take with fruit juices. Orally Once a day; Duration: 30 day(s) Not-Taking HumaLOG sliding scale Not-Taking Vitamin D Not-Taking Modafinil 300MG Not-Taking Immunizations Vaccine Route Administration Date Status Comme nts COVID-19 Moderna Vaccine Unknown 01/09/2021 Administere d Influenza Unknown 02/16/2015 Administered Influenza Unknown 02/16/2016 Administered Influenza Unknown 01/20/2017 Administered Influenza Unknown 04/13/2018 Refused Influenza Unknown 05/04/2018 Administered Influenza Unknown 04/05/2019 Administered Influenza Unknown 06/30/2023 Administered Social History Tobacco Use: Social History Observation Description Date Details (start date - stop date) Never Smoker NA - NA Tobacco use other than smoking: Question Answer Notes Are you an other tobacco user? No Tobacco Control (Standard) Question Answer Notes Tobacco use: Nonsmoker Additional Findings: Tobacco non-user Current no nsmoker AUDIT-C (Standard) Question Answer Notes Did you have a drink containing alcohol in the p ast year? No Points 0 Interpretation Negative Section Notes: A1C 03/09/15 5.2 Flu Shot 01/2015 Eye Exam 2014 A1C 03/09/15 5.2 Flu Shot 01/2015 Eye Exam 2014 Problems Problem Type SNOMED Code ICD Code Onset Dates Problem Status W/U Status Risk Notes Problem Acquired hammer toe of right foot (8683534694603982 ) Other hammer toe(s) (acquired), right foot (M20.41) Active confirmed Problem Acquired hammer toe of left foot (7926140056070569 ) Other hammer toe(s) (acquired), left foot (M20.42) Active confirmed Problem Polyneuropathy due to diabetes mellitus type I (396228675) Type 1 diabetes mellitus with diabetic polyneuropathy (E10.42) Active confirmed Vital Signs Heart Rate 86 /min 10/25/2024 Blood pressure diastolic 99 mm Hg 10/25/2024 Height 6ft in 10/25/2024 Blood pressure systolic 161 mm Hg 10/25/2024 Weight 255 lbs 10/25/2024 BMI 34.58 kg/m2 10/25/2024 Procedures Procedure Date Ordered Date Performed Result Body Sit e 32169-USQGGLT NAIL, 6 OR MORE 01/26/2024 N/A 76200- Debride <25 sq cm 01/26/2024 N/A 04268-GHKA SKIN LESIONS, 2 TO 4 01/26/2024 N/A 34573-VUPEOKY NAIL, 6 OR MORE 04/30/2024 N/A 19492-UYLV SKIN LESIONS, OVER 4 04/30/2024 N/A 51110-QUFYRJG NAIL, 6 OR MORE 07/19/2024 N/A 39163-FPEE SKIN LESIONS, OVER 4 07/19/2024 N/A , O2116-NPWUI/INJECT, JOINT/BURSA 09/14/2024 N/A , J0702- INJECT TENDON ORIGIN/INSERT 10/04/2024 N/A 72059-HWJRRZB NAIL, 6 OR MORE 10/25/2024 N/A , J0702- INJECT TENDON ORIGIN/INSERT 10/25/2024 N/A 01104-XFZZ SKIN LESIONS, OVER 4 10/25/2024 N/A Encounters Encounter Location Date Provider Diagnosis [facility] [address] [place] [phone] 01/26/2024 Tanner Belkis Type 1 diabetes mellitus with diabetic polyneuropathy E10.42 ; Tinea unguium B35.1 and Skin ulcer of toe of right foot, limited to breakdown of skin L97.[address] [address] 04/30/2024 Tanner Belkis Type 1 diabetes mellitus with diabetic polyneuropathy E10.42 and Tinea unguium B35.1 [facility] [address] [place] [phone] 07/19/2024 Tanner Belkis Type 1 diabetes mellitus with diabetic polyneuropathy E10.42 ; Other hammer toe(s) (acquired), right foot M20.41 ; Onychomycosis B35.1 and Other hammer toe(s) (acquired), left foot M20.[address] [address] 09/14/2024 Tanner Belkis Pain in left foot M79.672 ; Pain in left ankle and joints of left foot M25.572 ; Hallux valgus (acquired), left foot M20.12 ; Bursitis of intermetatarsal bursa of left foot M77.52 ; Hallux rigidus of left foot M20.22 and Type 1 diabetes mellitus with diabetic polyneuropathy E10.[address] [address] 10/04/2024 Tanneriona Huttonier Posterior tibial tendinitis of left lower extremity M76.822 [place] [id number] [address] [address] 10/25/2024 Tanner Belkis Type 1 diabetes mellitus with diabetic polyneuropathy E10.42 ; Posterior tibial tendinitis of left lower extremity M76.822 and Tinea unguium B35.[address] [address] 04/21/2024 Tanner Tamayo [address] [address] 09/14/2024 Tanner Tamayo [facility] [address] [place] [address] 10/04/2024 Tanner Tamayo Assessments Encounter Date Diagnosis (ICD Code) Assessment Notes Treatment Notes Treatment Clinical Notes Section Notes 01/26/2024 Type 1 diabetes mellitus with diabetic polyneuropathy (ICD-10 - E10.42) 01/26/2024 Tinea unguium (ICD-10 - B35.1) 04/30/2024 Type 1 diabetes mellitus with diabetic polyneuropathy (ICD-10 - E10.42) 04/30/2024 Tinea unguium (ICD-10 - B35.1) 07/19/2024 Other hammer toe(s) (acquired), right foot (ICD-10 - M20.41) Patient Educated with: DIABETIC FOOT CARE INSTRUCTIONS. pdf (DIABETIC FOOT CARE INSTRUCTIONS. pdf) 07/19/2024 Type 1 diabetes mellitus with diabetic polyneuropathy (ICD-10 - E10.42) 09/14/2024 Pain in left ankle and joints of left foot (ICD-10 - M25.572) 09/14/2024 Pain in left foot (ICD-10 - M79.672) 10/04/2024 Posterior tibial tendinitis of left lower extremity (ICD-10 - M76.822) Patient Educated with: RICE THERAPY.pdf (RICE THERAPY.pdf) Patient Educated with: INJECTIONTHER APY.pdf (INJECTIONTHE RAPY.pdf) 10/25/2024 Type 1 diabetes mellitus with diabetic polyneuropathy (ICD-10 - E10.42) 10/25/2024 Posterior tibial tendinitis of left lower extremity (ICD-10 - M76.822) Patient Educated with: RICE THERAPY.pdf (RICE THERAPY.pdf) Patient Educated with: INJECTIONTHER APY.pdf (INJECTIONTHE RAPY.pdf) 10/25/2024 Tinea unguium (ICD-10 - B35.1) 09/14/2024 Hallux valgus (acquired), left foot (ICD-10 - M20.12) 07/19/2024 Onychomycosis (ICD-10 - B35.1) 01/26/2024 Skin ulcer of toe of right foot, limited to breakdown of skin (ICD-10 - L97.511) Patient Educated with: WOUND CARE INSTRUCTIONS. pdf (WOUND CARE INSTRUCTIONS. pdf) 07/19/2024 Other hammer toe(s) (acquired), left foot (ICD-10 - M20.42) 09/14/2024 Bursitis of intermetatarsal bursa of left foot (ICD-10 - M77.52) Patient Educated with: RICE THERAPY.pdf (RICE THERAPY.pdf) Patient Educated with: INJECTIONTHER APY.pdf (INJECTIONTHE RAPY.pdf) 09/14/2024 Hallux rigidus of left foot (ICD-10 - M20.22) 09/14/2024 Type 1 diabetes mellitus with diabetic polyneuropathy (ICD-10 - E10.42) 01/26/2024 Other 04/30/2024 Other 09/14/2024 Other 10/04/2024 Other Plan Of Treatment Pending Test Test Name Order Date Hemoglobin A1c 05/24/2015 X ray : Foot, left 3V 01/25/2013 X ray : Foot, left 3V 09/14/2024 X ray : Foot, right 3V 01/25/2013 65371-CFPPJDS NAIL, 6 OR MORE 04/14/2017 15034-OHXKWQX NAIL, 6 OR MORE 11/28/2016 66231-RUQQRXO NAIL, 6 OR MORE 02/03/2017 59608-BJVONQQ NAIL, 6 OR MORE 02/22/2016 83875-ENBCSDR NAIL, 6 OR MORE 05/01/2016 00479-JVXSWWP NAIL, 6 OR MORE 07/10/2016 76389-LUNAWDG NAIL, 6 OR MORE 09/19/2016 71093-BBXGNRF NAIL, 6 OR MORE 08/27/2017 62926-OVKYIHW NAIL, 6 OR MORE 11/03/2017 81630-TZVHUAC NAIL, 6 OR MORE 02/02/2018 77779-SVJHOAU NAIL, 6 OR MORE 04/13/2018 72199-FIMIHYY NAIL, 6 OR MORE 06/25/2018 03403-JGBTILI NAIL, 6 OR MORE 08/27/2018 47877-IQQKWUB NAIL, 6 OR MORE 02/04/2019 65813-QSDBWCZ NAIL, 6 OR MORE 01/25/2013 42542-LSJVJWK NAIL, 6 OR MORE 04/07/2013 53614-KAJKXHK NAIL, 6 OR MORE 07/12/2013 09097-OZPEICP NAIL, 6 OR MORE 06/17/2011 84531-LCQQQXT NAIL, 6 OR MORE 11/04/2011 53930-BTPONKG NAIL, 6 OR MORE 02/03/2012 12818-BWJHIXM NAIL, 6 OR MORE 10/15/2012 38830-TBPDGYZ NAIL, 6 OR MORE 08/02/2015 45923-BDJDNKG NAIL, 6 OR MORE 05/24/2015 33525-MMGSUKP NAIL, 6 OR MORE 10/12/2015 89798-YPHGNII NAIL, 6 OR MORE 12/21/2015 76724-IUORSEG NAIL, 6 OR MORE 03/02/2014 41785-IYNVORN NAIL, 6 OR MORE 11/10/2014 84687-TJLQRHJ NAIL, 6 OR MORE 03/09/2015 70487-QDSGMGC NAIL, 6 OR MORE 07/19/2024 67177-IFYMODI NAIL, 6 OR MORE 10/25/2024 76412-WJYYNEC NAIL, 6 OR MORE 09/08/2019 09596-UGVVARB NAIL, 6 OR MORE 06/25/2017 73882-XVABMKC NAIL, 6 OR MORE 08/25/2014 85857-XIKVGMA NAIL, 6 OR MORE 05/26/2014 78158-PXFFRPH NAIL, 6 OR MORE 12/08/2013 70954-SGMRXPU NAIL, 6 OR MORE 01/22/2023 93385-HAOSCIA NAIL, 6 OR MORE 04/16/2023 97344-AIZYZIN NAIL, 6 OR MORE 07/03/2023 13190-AKCSPDS NAIL, 6 OR MORE 09/04/2023 40039-ZCOAROO NAIL, 6 OR MORE 11/13/2023 93998-BMXBFGN NAIL, 6 OR MORE 01/26/2024 08497-QLAYTPK NAIL, 6 OR MORE 04/30/2024 69467-DCNGMFB NAIL, 6 OR MORE 04/19/2019 52201-GZZJPCZ NAIL, 6 OR MORE 06/28/2019 11054-QXZISTH NAIL, 6 OR MORE 12/02/2019 01278-GNRNEVC NAIL, 6 OR MORE 02/03/2020 84823-TCBHBVH NAIL, 6 OR MORE 04/06/2020 59874-FYSFOSF NAIL, 6 OR MORE 06/12/2020 79025-QVFPCQY NAIL, 6 OR MORE 08/28/2020 01186-POSDWQK NAIL, 6 OR MORE 11/09/2020 50777-KUSDZAJ NAIL, 6 OR MORE 02/05/2021 94505-IMRZQUL NAIL, 6 OR MORE 04/16/2021 88832-TCLKYGM NAIL, 6 OR MORE 07/23/2021 89019-EIMKGRH NAIL, 6 OR MORE 10/01/2021 79489-KHKVRPT NAIL, 6 OR MORE 12/17/2021 50983-ODUAEYG NAIL, 6 OR MORE 03/07/2022 02401-YXMXXNI NAIL, 6 OR MORE 05/23/2022 22813-JFNWIXW NAIL, 6 OR MORE 08/01/2022 81417-BFHGQEP NAIL, 6 OR MORE 11/07/2022 59053-ASMAFCZ NAIL, 6 OR MORE 09/22/2013 52965-NWGNRPH NAIL, 6 OR MORE 08/10/2012 64460-TRTGMRN NAIL, 6 OR MORE 06/01/2012 98930-NSXNAIU NAIL, 6 OR MORE 09/16/2011 45140-Mkypqxto Plate 09/16/2011 30937-Vkqcdfca Plate 06/01/2012 10017-Cyzipyta Plate 09/22/2013 26403-Nvvlytkd Plate 07/03/2023 40805-Ggvaxniy Plate 12/08/2013 40489-Kbzfffjy Plate 03/02/2014 17678-Euwxdrrx Plate 02/03/2012 19789-Pxjhugwo Plate 06/17/2011 15877-Ohrzvntt Plate 01/25/2013 09139-Zjvvzigs Plate 02/04/2019 59070-Qwqaaeci Plate 04/13/2018 18671-Nweqzbqu Plate Each Additional 52706- Debride <25 sq cm 01/26/2024 23637 I&D ABSCESS- SIMPLE,SINGLE 024 48046 I&D ABSCESS- SIMPLE,SINGLE 017 29269, J0702- INJECT TENDON ORIGIN/INSER T 10/04/202445058, J0702- INJECT TENDON ORIGIN/INSER T 10/25/2024 55058-EUQU SKIN LESIONS, OVER 4 10/26/19 25 53765-RRFI SKIN LESIONS, OVER 4 07/20/19 25 12305-PEYY SKIN LESIONS, OVER 4 04/30/20 24 78351-CDAD SKIN LESIONS, 2 TO 4 01/26/20 24 29486-IURH SKIN LESIONS, 2 TO 4 11/13/19 24 10597-VHAK SKIN LESIONS, 2 TO 4 09/04/19 24 97545-NCNP SKIN LESIONS, 2 TO 4 06/25/19 30891-YZEM SKIN LESIONS, 2 TO 4 07/03/19 24 76976-JMXL SKIN LESIONS, 2 TO 4 04/16/20 23 92610-DXDQ SKIN LESIONS, 2 TO 4 01/23/20 00507-XEVG SKIN LESIONS, 2 TO 4 12/09/19 14 90582-IIUM SKIN LESIONS, 2 TO 4 05/26/19 15 60173-VFTJ SKIN LESIONS, 2 TO 4 09/08/19 55955-VAEW SKIN LESIONS, 2 TO 4 06/25/19 18 55528-IXIU SKIN LESIONS, 2 TO 4 11/08/19 43785-HVSR SKIN LESIONS, 2 TO 4 08/02/19 22143-EEXH SKIN LESIONS, 2 TO 4 05/23/19 32729-ATGC SKIN LESIONS, 2 TO 4 03/07/20 16559-AFJO SKIN LESIONS, 2 TO 4 12/18/19 20283-XXRX SKIN LESIONS, 2 TO 4 10/02/19 29325-HUYP SKIN LESIONS, 2 TO 4 07/24/19 17350-UHAN SKIN LESIONS, 2 TO 4 04/16/20 21 49764-FLKI SKIN LESIONS, 2 TO 4 02/06/20 21 99683-EQBP SKIN LESIONS, 2 TO 4 11/10/19 21 17082-KUZE SKIN LESIONS, 2 TO 4 08/29/19 21 37163-JMOU SKIN LESIONS, 2 TO 4 06/12/19 21 90751-IORZ SKIN LESIONS, 2 TO 4 04/06/20 92309-GYRW SKIN LESIONS, 2 TO 4 02/03/20 43370-YIUQ SKIN LESIONS, 2 TO 4 12/02/19 20 26172-HTJB SKIN LESIONS, 2 TO 4 06/28/19 52649-RVZB SKIN LESIONS, 2 TO 4 08/28/19 18 81128-CAWV SKIN LESIONS, 2 TO 4 04/14/20 17 90715-IFHJ SKIN LESIONS, 2 TO 4 02/04/20 17 28445-CTEG SKIN LESIONS, 2 TO 4 11/29/19 17 90377-VDGD SKIN LESIONS, 2 TO 4 07/10/19 26515-OFJR SKIN LESIONS, 2 TO 4 09/20/19 52090-KFJZ SKIN LESIONS, 2 TO 4 05/01/20 16 96531-RFLT SKIN LESIONS, 2 TO 4 02/22/20 16 61755-XESW SKIN LESIONS, 2 TO 4 02/03/20 18 28308-MDHL SKIN LESIONS, 2 TO 4 04/13/20 18 33647-KRCW SKIN LESIONS, 2 TO 4 11/04/19 18 67481-ALVF SKIN LESIONS, 2 TO 4 02/05/20 19 67040-FDVD SKIN LESIONS, 2 TO 4 04/19/20 19 38112-BAUQ SKIN LESIONS, 2 TO 4 08/28/19 19 84305-PXRX SKIN LESIONS, 2 TO 4 03/02/20 14 30673-QWDT SKIN LESIONS, 2 TO 4 03/09/20 15 69039-DTJR SKIN LESIONS, 2 TO 4 11/11/19 15 23833-EQYZ SKIN LESIONS, 2 TO 4 12/21/19 16 75747-SWQR SKIN LESIONS, 2 TO 4 10/12/19 16 82315-JNNH SKIN LESIONS, 2 TO 4 05/24/19 16 83189-HSLY SKIN LESIONS, 2 TO 4 08/02/19 16 76702-HYJL SKIN LESIONS, 2 TO 4 01/26/20 13 17434-UMWX SKIN LESIONS, 2 TO 4 07/12/19 14 74699-VFWC SKIN LESIONS, 2 TO 4 04/07/20 13 02009-FHFF SKIN LESIONS, 2 TO 4 06/17/19 12 62573-FXOI SKIN LESIONS, 2 TO 4 11/04/19 12 24083-SSPL SKIN LESIONS, 2 TO 4 02/03/20 12 82731-HTUA SKIN LESIONS, 2 TO 4 10/16/19 13 06366-AKAS SKIN LESIONS, 2 TO 4 09/23/19 14 54788-GNWG SKIN LESIONS, 2 TO 4 08/11/19 13 85885-NLGQ SKIN LESIONS, 2 TO 4 06/01/19 13 96876-NHIJ SKIN LESIONS, 2 TO 4 09/16/19 12 65913-QGGO SKIN LESIONS, 2 TO 4 08/26/19 15 18866, X0435-ZDOES/INJECT, JOINT/BURSA 1 05/31/201316220, Y6298-FNFXI/INJECT, JOINT/BURSA 0 06/25/201845443, G4975-KDRIC/INJECT, JOINT/BURSA 0 02/02/201861199, J8270-BWSXF/INJECT, JOINT/BURSA 0 11/07/2022 41859, E7886-QURIJ/INJECT, JOINT/BURSA 0 08/25/2014 32669, V8026-DCSBH/INJECT, JOINT/BURSA 0 09/14/202420065, G1764-SZIEK/INJECT, JOINT/BURSA 0 11/13/2023 Next Appt Details Provider Name:Tanner Tamayo , 01/20/2025 03:45:00 PM, [address] [facility], [facility] [address], [place], [address], Insurance Providers Payer Name Payer Address Payer Phone Subscriber Number Group Number Insured Name Patient Relationship to Insured Coverage Start Date Coverage End Date Medicare National Govt [employer] [address] [facility] [address] [id number] Coy Garza Self - patient is the insured [employer] [address] [place] [address] [id number] Coy Garza Self - patient is the insured Medical (General) History Medical History History ICD Code hypertension gall bladder problems sleep apnea Cholesterol Diabetic Bladder Cancer - 2024 Surgical History Surgery Date(Month/Year) cholecystectomy 2002 kidney stones 2001,2002,2003 eye surgery 11/2023 Hospitalization History Reason Date(Month/Year) sleep study [facility]- Left eye 11/24/23 [facility]- had [facility] 05/30 [facility] - 2x for back and 1 for tooth 01/2016 [facility]- [place] for herniated disc 02[place]24[place] [facility] [place] middle finger 08[place]29/14 [facility] [place] Pain 06/26/11
--- OUTSIDE RECORDS SUMMARY | 2025-01-10 16:34 | XMS_ITS | Encounter Summary ---
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, CMS/HCC V28); Urinary tract infection, site not specified Social History Tobacco Use Types Packs/Day Years [...] Procedure Name Priority Date/Time Associated Diagnosis Comments CULTURE URINE Routine 01/07/2025 12:00 AM EDT 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, CMS/HCC V28) Urinary tract infection, site not specified documented in this encounter Results * Culture urine (01/07/2025 12:00 AM EDT) Culture, Urine No growth 01/08/2025 1:47 PM EDT [facility] Urine Urine specimen obtained by clean catch procedure / Unknown 01/07/2025 01/07/2025 6:08 PM EDT us Eduard Mendoza MD LAB MICROBIOLOGY - GENERAL KRYSTEN TELLES Final Result [facility] [address] [place] [address], documented in this encounter Visit Diagnoses Diagnosis 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
--- OUTSIDE RECORDS SUMMARY | 2025-01-10 16:34 | XMS_ITS | Clinical Summary ---
Author Organization [facility] Address [address] [facility] [address] [place] [phone] Phone Care Team Providers Care Prepress Supervisor Name Role Phone Ulysses Escalante MD Primary [...] mouth daily. Active blood-glucose meter,continuous ([employer]COM G7 RECORDS MANAGEMENT ENGINEER) MiscIndications: Type 2 diabetes mellitus with peripheral [...] with glycemic control. Up to date with [place]. Assessment & Plan (12/09/2022 4:42 PM EDT): [...] within 1-2 weeks. Up to date with [place]. Foot & nail care good. BP under reasonable control. correction current use of insulin food technician current use of oral hypoglycemic drug Long-term [...] Encounters Date Type Department Care Team Description 01/07/2025 Refill [facility] [address] [place] [address] [place] [address] Jailene Yap MD Medication Refill 12/28/2024 Orders Only [facility] [address] [address] Jailene Yap MD 12/28/2024 Telephone [facility] [address] [place] [address] [place] [address] Jailene Yap MD PCP Recommendation? (PCP Recommendation?) 11/29/2024 4:00 PM EDT Office Visit [facility] [address] [address] Jailene Yap MD Type 2 diabetes mellitus with peripheral neuropathy (Primary Dx); Type 2 diabetes mellitus with retinopathy, with long-term current use of insulin, macular edema presence unspecified, unspecified laterality, unspecified retinopathy severity; Type 2 diabetes mellitus with microalbuminuria; Long-term current use of injectable noninsulin antidiabetic medication; food technician current use of oral hypoglycemic drug; food technician current use of insulin 11/29/2024 Orders Only [address] [address] ProviderManas MD 10/20/2024 Refill [facility] [address] [place] [address] [place] [address] Jailene Yap MD Medication Refill from Last [...] Description 05/30/2025 1:40 PM EST Office Visit [facility] Endocrinology [address] [address] Jailene Yap MD [address] [place] [phone] [email or web address] Health Maintenance Due Date Last Done Comments [...] HEMOGLOBIN A1C 6.4(H) 4.3 - 5.8 % [facility] Blood 05/31/2024 4:02 PM EST 05/31/2024 4:03 PM EST Jailene Yap MD LAB BLOOD ORDERABLES F inal Result [address] [address] * (ABNORMAL) Basic metabolic panel (05/31/2024 4:02 PM EST) SODIUM 143 133 - 146 mmol/L [facility] CHLORIDE 104 96 - 108 mmol/L [facility] POTASSIUM 4.3 3.3 - 5.1 mmol/L [facility] CO2 25 21 - 35 mmol/L [facility] BUN 21(H) 6 - 19 mg/dL [facility] CREATININE 1.10 0.5 - 1.5 mg/dL [facility] GLUCOSE 136(H) 70 - 99 mg/dL [facility] CALCIUM 9.9 8.4 - 10.3 mg/dL [facility] EGFR 74 >59 mL/min/1.7 3m2 [facility] Comment:Estimated glomerular filtration rate calculated using the CKD-EPI refit equation. ANION GAP 18 10 - 20 mmol/L [facility] Blood 05/31/2024 4:02 PM EST 05/31/2024 4:03 PM EST Jailene Yap MD LAB BLOOD ORDERABLES F inal Result [facility] [address] [place], [place] [phone] from Last 3 Months or Most Recently Relevant to Health Maintenance Insurance [employer] [facility] EXTENSION MEDICARE SUPPLEMENT MEDICARE PART A & B [employer] [facility] MEDICARE SUPPLEMENT MEDICARE PART A & B [employer] [facility] MEDICARE SUPPLEMENT MEDICARE PART A & B [employer] MEDICARE SUPPLEMENT MEDICARE PART A & B [employer] MEDICARE SUPPLEMENT MEDICARE PART A & B [employer] [facility] MEDICARE SUPPLEMENT [employer] [facility] MEDICARE SUPPLEMENT MEDICARE PART A & B Care Teams Prepress Supervisor Relationship Specialty Start Date End Date Ulysses Escalante MD [address] [place] [address] PCP - General Internal Medicine 09/13/14 Additional Source Comments The information contained in this document represents components of the legal health record. It is not the complete legal health record.[facility]
--- OUTSIDE RECORDS SUMMARY | 2025-01-10 16:34 | XMS_ITS | Encounter Summary ---
Author Organization [facility] Address [address] [place] [address] Care Team Providers Care Warehousing Technician Name Role Phone Ulysses Escalante MD Primary Care Provider + [phone] Encounter Details Date Type Department Care Team (Late st Contact Info) Description 08/13/2024 Lab Requisition [facility] - Main Lab [address] [facility] [place] [address] Eduard Mendoza MD [address] [place] [phone] Neoplasm of uncertain behavior of bladder Social [...] 12:00 AM EDT) Final Diagnosis Urine, Voided, ([id number]): Suspicious for high grade urothelial carcinoma. Acute inflammation present. Results of UroVysion fluorescence in situ hybridization (FISH) testing: CEP3: Abnormal CEP7: Abnormal CEP17: Abnormal LSI 9p21: Normal Interpretation: Abnormal profile Controls stained appropriately. Note: Abnormal results are considered suspicious for urothelial carcinoma. 08/17/2024 9:38 AM EDT [facility] Clinical Information Neoplasm of uncertain behavior of bladder D41.4 Urine Cytology/FISH (now) 08/17/2024 9:38 AM EDT [facility] Gross Description A. Urine, Voided, ([id number]): Received one ThinPrep slide for cytology and one ThinPrep slide for UroVysion FISH 08/17/2024 9:38 AM EDT [facility] Disclaimer Unless otherwise specified, all tissue is 10% NB formalin fixed and paraffin embedded. Technical pathology services provided by [facility] [address] [facility] [address] [place] [address] (CLIA #[id number]/Leatha Michael MD, Software Quality Test Engineer) 08/17/2024 9:38 AM EDT [facility] Tissue Urine specimen from urethra / Unknown 08/06/2024 08/13/2024 11:01 AM EDT us Eduard Mendoza MD LAB PATHOLOGY ORDERABLES Final Result [facility] [address] [place] [address], documented in this encounter Visit Diagnoses Diagnosis Neoplasm of uncertain behavior of bladder documented in this encounter Care Teams Warehousing Technician Relationship Specialty Start Date End Date Ulysses Escalante MD [address] [place] [address] PCP - General Internal Medicine 10/05/13 documented as of this encounter
--- OUTSIDE RECORDS SUMMARY | 2025-01-10 16:34 | XMS_ITS | Clinical Summary ---
Author Organization [facility] Address [address] [place] [address] Care Team Providers Care Office Services Assistant Name Role Phone Unavailable Primary Care Provider Unavailabl e Encounters Date Type Department Care Team Description 11/18/2024 Transcribe Orders [facility] [address] Ulysses Escalante MD Pain of joint of [...]
--- OUTSIDE RECORDS SUMMARY | 2025-01-10 16:34 | XMS_ITS | Clinical Summary ---
Author Organization [facility] Address [address] [place] [address] Phone Care Team Providers Care Case Folder Name Role Phone Ulysses Escalante MD Primary Care Provider [phone] Encounters Date Type Department Care Team Description 01/07/[address] [facility] Lab [address] [place] [phone] Eduard Mendoza MD Malignant neoplasm of dome of bladder ([facility]/HCC V24, CMS/HCC V28); Urinary tract infection, site not specified 12/30/[address] [facility] Lab [address] [place] [phone] Sukumar Devlin MD Urinary tract infection, site not specified from Last 3 Months Medical History Medical [...] 1977 Pneumococcal Vaccine: 50+ Years (1 of 1 - PCV) 2008 RSV Immunization Adult Patients (1 - Risk 60-74 years 1-dose series) 2018 Cholesterol Screening (Lipid Panel) 04/27/2022 Colorectal Cancer Screening: Colonoscopy 04/27/2022 Hepatitis C Screening 04/27/2022 Medicare Annual Wellness Visit 04/27/2022 Social Influencers of Health Screening 04/27/2022 Falls Risk Assessment 10/28/2023 COVID-19 Vaccine (3 - 2023-2 5 season) 2024 02/12/2021, 01/09/2021 Diabetes: Blood Sugar Contro l Test (HGBA1C) 04/28/2024 Hypertension/CHF/CAD Annual BMP Blood Test 04/28/2024 Depression Screening 05/19/2024 Diabetes: Annual Urine Albumin-Creatinine Ratio (uACR) 12/20/2024 12/21/2023 Influenza Vaccine (#1) 2025 , 02/19/2022, 04/23/2021 Zoster Vaccines Completed 02/19/2022, 11/21/2021 [...] EDT Malignant neoplasm of dome of bladder ([facility] V24, [facility] V28) Urinary tract infection, site not specified CULTURE URINE Routine 12/30/2024 12:00 AM EDT Urinary tract infection, site not specified from Last 3 Months Results * Culture urine (01/07/2025 12:00 AM EDT) Only the most recent of2 resultswithin the time period is included. Culture, Urine No growth 01/08/2025 1:[address] [facility] Urine Urine specimen obtained by clean catch procedure / Unknown 01/07/2025 01/07/2025 6:08 PM EDT us Eduard Mendoza MD LAB MICROBIOLOGY - GENERAL KRYSTEN TELLES Final Result [facility] [address] [place] [address], from Last 3 Months Insurance MEDICARE UN[employer] Care Teams Case Folder Relationship Specialty Start Date End Date Ulysses Escalante MD [address] [place] [phone] PCP - General Internal Medicine 10/05/13
--- OUTSIDE RECORDS SUMMARY | 2025-01-10 16:34 | XMS_ITS | Encounter Summary ---
Author Organization [facility] Address [address] [place] [address] Care Team Providers Care Communications Technologist Name Role Phone Ulysses Escalante MD Primary Care Provider + [phone] Encounter Details Date Type Department Care Team (Late st Contact Info) Description 08/26/2024 Lab Requisition [facility] - Main Lab [address] [facility] [place] [address] Eduard Mendoza MD [address] [place] [phone] Personal history of malignant neoplasm of bladder [...] situ: Not identified 08/30/2024 2:40 PM EDT [facility] Clinical Information Z85.51 - H/O bladder neoplasm (malignant) [id number] 08/30/2024 2:40 PM EDT [facility] Gross Description A. Urinary Bladder, tumor: Labeled bladder tumor . Received in formalin are 4 soft, hernandez-red tissue fragments, measuring 0.4x0.3x0.2cm in greatest diameters, which are wrapped in paper and submitted in toto, one cassette, 4 pieces, multiple levels. /al 08/30/2024 2:40 PM EDT [facility] Disclaimer Unless otherwise specified, all tissue is 10% NB formalin fixed and paraffin embedded. Technical pathology services provided by [facility] [address] [facility] [address] [place] [address] (CLIA #[id number]/S diana Michael MD, Barrel Straightener) 08/30/2024 2:40 PM EDT [facility] Tissue Urinary bladder structure / Unknown 08/25/2024 08/26/2024 4:37 PM EDT us Eduard Mendoza MD LAB PATHOLOGY ORDERABLES Final Result [facility] [address] [place] [address], documented in this encounter Visit Diagnoses Diagnosis Personal history of malignant neoplasm of bladder documented in this encounter Care Teams Communications Technologist Relationship Specialty Start Date End Date Ulysses Escalante MD [address] [place] [address] PCP - General Internal Medicine 10/05/13 documented as of this encounter
--- OUTSIDE RECORDS SUMMARY | 2025-01-10 16:34 | XMS_ITS | Encounter Summary ---
Author Organization [facility] Address [address] [facility] [address] [place] [phone] Phone Care Team Providers Care Block Hand Name Role Phone Ulysses Escalante MD Primary Care Provider Reason for Visit * Reason Onset Date Comments Medication Refill 01/07/2025 Encounter Details Date Type Department Care Team (Late st Contact Info) Description 01/07/2025 Refill [facility] [address] [place] [address] Jailene Yap MD [address] [place] [phone] [email or web address] Medication Refill Social History Tobacco Use Types Packs/Day Years [...] on file documented as of this encounter Progress Notes * Lyubov Thomas RN - 01/07/2025 2:29 PM EDT He says never mind on the increase. He wishes to stay on the 5 mg a little longer. He does have a refill, so no need to send. I asked if any problem tolerating and he said no, just wants to give his body a little more time on this dose before increasing further. He tells me glucose control is fine. * Jailene Yap MD - 01/07/2025 1:26 PM EDT Pls check with pt as to how he is doing with current dose of mounjaro - tolerating? Any changes in weight/glucose control? * Denise Gerber MA - 01/07/2025 12:53 PM EDT IMPORTANT - At least one Rx mismatch identified. Original(s) may be discontinued, , or different strength/form. Review required. Rx Care Gap Status - Instructions for Clinical Staff (prescriber discretion applies): > Mismatch review guide > At least one request does not meet full criteria. Specifics below. > Labs due: Please remind patient. > Orders needed: Click OPA and Accept to open SmartSet. A1c - Needs order * Lipid panel - Needs order * Visit Info Last visit: 11/29/2024 Jailene Yap MD - Endocrinology [facility] > Requested f/u: Return in about 6 months (around 06/01/2025). Upcoming visit: 05/30/2025 Jailene Yap MD - Endocrinology [facility] ACTIONS TAKEN BY Denise Gerber MA - Labs needed - Teed up orders and/or reminded pt. Diabetes Rx Protocol (on Diabetes Registry) - tirzepatide Rx mismatch - Original discontinued, , or different strength/form. Criteria for reference: Visit in the past 14 months: Yes Clinical criteria: - BMP within past year: Yes - A1c within past 6 months: No - Lipid panel within past year: No (No prior value) - Urine microalbumin within past year or on TERRELL/ARB: Yes Lab Results Component Value Date SODIUM 143 05/31/2024 POTASSIUM 4.3 05/31/2024 CHLORIDE 104 05/31/2024 CO2 25 05/31/2024 BUN 21 (H) 05/31/2024 CREATININE 1.10 05/31/2024 EGFR 74 05/31/2024 Lab Results Component Value Date HEMOGLOBIN A1C 6.4 (H) 05/31/2024 Health Maintenance Labs Due / Due Soon Topic Date Due HEMOGLOBIN A1C 11/28/2024 * Lyubov Cespedes - 01/07/2025 11:59 AM EDT Patient is asking if their RX tirzepatide (MOUNJARO) 5 mg/0.5 mL PnIj subcutaneous pen will be increased to 10 mg? Needs refill sent to [facility] / Mark documented in this encounter Plan of Treatment Upcoming Encounters Date Type Department Care Team (Late st Contact Info) Description 05/30/2025 1:40 PM EST Office Visit [facility] Endocrinology [address] [phone] Jailene Yap MD [address] [place] [phone] [email or web address] documented as of this encounter Visit Diagnoses Not on filedocumented in this encounter Care Teams Block Hand Relationship Specialty Start Date End Date Ulysses Escalante MD [address] [place] [address] PCP - General Internal Medicine 09/13/14 documented as of this encounter Additional Source Comments The information contained in this document represents components of the legal health record. It is not the complete legal health record.[facility]
--- OUTSIDE RECORDS SUMMARY | 2025-01-10 16:34 | XMS_ITS | Clinical Summary ---
Author Organization [facility] Address [address] [place] [address] Care Team Providers Care Operating Room Manager Name Role Phone Ulysses Escalante MD [...] by mouth daily. 0 Active Multiple Minerals (GJSTIGI-SRLCLDYLX-JLN C) TABS Take 371 mg by mouth [...] age to complete this topic Care Teams Operating Room Manager Relationship Specialty Start Date End Date Ulysses Escalante MD PCP - General Internal Medicine 04/24/17
--- OUTSIDE RECORDS SUMMARY | 2025-01-10 16:34 | XMS_ITS | Encounter Summary ---
Author Organization [facility] Address [address] [place] [address] Care Team Providers Care Spindle Plumber Name Role Phone Ulysses Escalante MD Primary Care Provider + [phone] Encounter Details Date Type Department Care Team (Late st Contact Info) Description 12/30/2024 Lab Requisition [facility] - Main Lab [address] [facility] [place] [address] Sukumar Devlin MD [address] [facility] [address] [place] [phone] Urinary tract infection, site not specified Social [...] Date/Time Associated Diagnosis Comments CULTURE URINE Routine 12/30/2024 12:00 AM EDT Urinary tract infection, site not specified documented in this encounter Results * Culture urine (12/30/2024 12:00 AM EDT) Culture, Urine No growth 12/31/2024 1:34 PM EDT [facility] ([facility]) [facility] Urine Topography unknown / Unknown 12/30/2024 12/30/2024 5:43 PM EDT us Sukumar Devlin MD LAB MICROBIOLOGY - GENERAL ORD ERABLES Final Result [facility] ([facility]) [facility] [address] [place] [address], documented in this encounter Visit Diagnoses Diagnosis Urinary tract infection, site not specified documented in this encounter Care Teams Spindle Plumber Relationship Specialty Start Date End Date Ulysses Escalante MD [address] [place] [address] PCP - General Internal Medicine 10/05/13 documented as of this encounter
== END 2025-01-10 14:52 | disposition home or self-care (01) ==
LOC: HO.BBR 14:51
PROVIDERS: PCP Internal Medicine; Visit Provider Internal Medicine
DX: E83.118 Other hemochromatosis (principal)
CPT/HCPCS: 85018; 99195

== ENCOUNTER 2025-01-24 15:27 | Outpatient (AMB) | payer MEDICARE, OTHER, SELFPAY ==
--- OUTSIDE RECORDS SUMMARY | 2024-10-14 11:45 | XMS_ITS ---
Author Organization [facility] Address [address] [facility] [place] [address] Care Team Providers Care Hot Box Checker Name Role Phone Ulysses Escalante MD Primary Care Provider Unavail Tanner Art Unavailable [phone] Encounters Encounter Location Date Provider Diagnosis [address] [address] 10/14/2024 Tanner Tamayo Plan Of Treatment Next Appt Details Provider Name:Tanner Tamayo , 05/02/2025 02:30:00 PM, [address] [address], [place], [address], Progress Notes * Coy LORENZ LDOB:[birth year] (64 yo M)Acc No.[id number]:10/14/2024 Progress Note Patient: Coy FONSECA Provider: Diana Tamayo DPM :1960 A ge:63 Y S ex:Male Date:10/14/2024 Address:[address], [place] Pcp:Ulysses Escalante MD Subjective: * Chief Complaints: [...] 10/14/2024 Generated for Wes matthews/Elvia/Mick on: 0 01/24/2025 06:27 PM EDT
--- OUTSIDE RECORDS SUMMARY | 2025-01-20 11:45 | XMS_ITS ---
Author Organization [facility] Address [address] [place] [address] Care Team Providers Care Tool And Cutter Grinder Name Role Phone Ulysses Escalante MD Primary Care Provider Unavail able Tanner Tamayo Unavailable [phone] Allergies Allergen (clinical drug ingredient) Drug/Non Drug Allergy documented on EMR Reaction Allergy Type Onset Date Status environmental (uncoded) diarrhea Allergy Active REASON FOR VISIT At Risk Footcare, Ingrown Nail Medications Medication SIG (Take, Route, Frequency, Duration) Notes Start Date End Date Status CeleBREX Not-Taking Voltaren 1 % as directed Transdermal Four times a day; Duration: 30 days 02/04/2019 Not-Taking traMADol HCl 50 MG 1 tablet as needed Orally every 6 hrs Not-Taking Lisinopril 10 MG 1 tablet Orally Once a day Not-Taking Invokana Not-Taking Modafinil 100 MG 1 tablet in the morning Orally Once a day Not-Taking Levemir 100 UNIT/ML as directed Subcutaneous 50-55 units before bed Not-Taking Trulicity Not-Taking Semglee 60 units before bed Not-Taking Aspirin 325 MG 1 tablet as needed Orally once daily Not-Taking Armodafinil 250 MG 1 tablet in the morning Orally Once a day Not-Taking Modafinil 300MG Not-Taking HumaLOG sliding scale Not-Taking Fexofenadine HCl 180 MG 1 tablet Swallow whole with water; do not take with fruit juices. Orally Once a day; Duration: 30 day(s) Not-Taking Vitamin D Not-Taking Mucinex Not-Taking Calcium + D 600 mg 1 tablet with food Orally Once a day; Duration: 30 day(s) Not-Taking No Doz Maximum Strength Not-Taking Vitamin B12 Not-Taki ng Multivitamins as directed Orally Not-Taking Gabapentin 300 MG 1 capsule Orally at bedtime Not-Taking Ozempic Active NovoLOG 100 UNIT/ML as directed Injection Active Extra Depth Orthopedic Shoes (1 Pair) with Customized Heat Molded Multidensity Innersoles (3 Pair) as directed Dx: IDDM/Polyneuropathy (E10.42), Hammertoe Foot Deformity (M20.41,M20.42), Preulcerative Skin Lesion(s) (L85.1) Active Pravastatin Sodium 40 MG 1 tablet Orally Once a day; Duration: 30 day(s) Active Lantus 100 UNIT/ML 0.1 ml Subcutaneous Once a day; Duration: 30 days 10 Units Active Farxiga Active metFORMIN HCl 2000 mg 1 tablet with meal s Orally Twice a day; Duration: 30 day(s) Active Losartan Potassium 25 MG 1 tablet Orally Active Calcium Magnesium Ac tive B Complex Not-Taking Social History Tobacco Use: Social History Observation [...] ast year? No Points 0 Interpretation Negative Vital Signs Height 6ft in 01/20/2025 Weight 255 lbs 01/20/2025 BMI 34.58 kg/m2 01/20/2025 Blood pressure systolic 128 mm Hg 01/21/20 25 Blood pressure diastolic 65 mm Hg 025 Procedures Procedure Date Ordered Date Performed Result Body Sit e 68326-NFAQMQT NAIL, 6 OR MORE 01/20/2025 N/A 77701-Umkrbvds Plate 01/20/2025 N/A 98662-JVEV SKIN LESIONS, OVER 4 01/20/2025 N/A Encounters Encounter Location Date Provider Diagnosis [facility] [address] [place] [phone] 01/20/2025 Tanner Tamayo Type 1 diabetes mellitus with diabetic polyneuropathy E10.42 ; Tinea unguium B35.1 and Ingrown nail L60.0 Assessments Encounter Date Diagnosis (ICD Code) Assessment Notes Treatment Notes Treatment Clinical Notes Section Notes 01/20/2025 Type 1 diabetes mellitus with diabetic polyneuropathy (ICD-10 - E10.42) 01/20/2025 Tinea unguium (ICD-10 - B35.1) 01/20/2025 Ingrown nail (ICD-10 - L60.0) 01/20/2025 Other Plan Of Treatment Pending Test Test Name Order Date 39555-SISMLJR NAIL, 6 OR MORE 01/20/2025 59485-Nmbhuzkr Plate 01/20/2025 10926-EQJU SKIN LESIONS, OVER 4 01/21/20 25 Next Appt Details Follow Up: prn, Reason: Provider Name:Tanner Tamayo , 05/02/2025 02:30:00 PM, [address] [facility], [address], [place], [address], Procedure Notes * Category Sub-Category Detail Notes Nail Avulsion Procedure A fine sterile e levator was placed between the eponychium, nail fold, and nail plate to separate the structures. A sterile nail splitter, and/or sterile 316 blade, was then used to longitudinally section the nail along its entire length through the eponychium to the area under the nail fold. The offending portion of nail was from the nail bed with a rolling action and then removed with a hemostat. No underlying bone was identified. There was minimal bleeding as hemostasis was achieved through the temporary use of either a digital tourniquet or the aforementioned local with epinephrine. A bacitracin sterile dressing was applied. Local wound aftercare instructions were discussed and dispensed. The patient was informed of both conservative and future surgical procedures to prevent recurrence. Tylenol or Motrin was recommended for pain or discomfort - 83076, DIABETES: Pt was advised as to the risk of delayed or nonhealing due to diabetes. Pt is to call the office with any questions, concerns, or complications Anesthesia 3cc of 1 percent Lid ocaine Plain local anesthesic utilizing aseptic technique Location Lateral nail border, T5 Debride Nail 6-10 Nail debridement Due to [...] use of a nail nipper and/or dremel-type surface grinder tender, to a more viable healthy nail plate [...] to maintain effectiveness in symptomatic relief - 79294 Keratoma Treatment Parring or Cutting o f Benign Hyperkeratotic Lesion(s) (-57) More than 4 Lesions - Due to the a t risk nature of the patients medical condition [...] instrumentation by the physician of record - 70382 Progress Notes * Coy LORENZ LDOB:[birth year] (64 yo M)Acc No.[id number]:01/20/2025 Progress Note Patient: Coy FONSECA Provider: Diana Tamayo DPM :1960 A ge:64 Y S ex:Male Date:01/20/2025 Address:[facility] [address] , [place], [place] Pcp:Ulysses Escalante MD Subjective: * Chief Complaints: * A t Risk FootcareIngrown Nail * HPI: A t Risk footcare: Pt States Last PCP Visit: D ate 0 01/13/2025 * ROS: G eneral/Constitutional: Nausea d enies. V omiting d enies. H zelda Thirst d enies. L oss appetite d enies. C hills d enies. F atigue d enies.?Fever d enies. N ight Sweats d enies. U nexplained weight loss d enies. O phthalmologic: Blurred vision d enies. R ed eye d enies. ? H EENTM: Dentures d enies. D izziness d enies. G lasses/contacts d enies. R etinopathy d enies. B lurred/double vision d enies. T MJ?denies. D ischarge/drainage d enies. I mplants d enies. H rosey of hearing admits. D ifficulty chewing/swallowing/speaking d enies. N ose bleeds d enies.?Sore mouth d enies. S wollen glands d enies. R espiratory: On Oxygen d enies. P neumonia/pleurisy d enies.?Bronchitis d enies. E mphysema d enies. C oughing d enies. C ough blood?denies. S hortness of breath d enies. W heezing d enies. C ardiovascular: Pacemaker d enies. M FILE CLERK d enies. W PW d enies. C HF d enies. H eart attack d enies. S eptal defect d enies. R apid beat d enies. C hest pain d enies. A trial Fib. d enies. M urmur/Palpitations d enies. G astrointestinal: Hemorrhoids d enies. S tomach/Abdominal pain d enies. D ark blood stool d enies. I rritable bowel d enies. C onstipation d enies. D iarrhea d enies. V omiting d enies. H ematology: Swelling d enies. B ruising admits, on aspirin. B leeding problem admits, on anticoagulants. G enitourinary: Blood urine d enies. F requent/Painfu/urination/bladder control d enies. K idney stones d enies. I nfection (UTI) d enies. N ephropathy d enies. M usculoskeletal: Hammertoes a dmits. B unions d enies. S coliosis/kyphosis d enies. M uscle cramps / walking d enies. G eneralized aches and pains?denies. W eakness d enies. I nteg.: Rinaldi d enies. S cars d enies. C orns/calluses?admits. I ngrown nails a dmits. P ainful nails d enies. R ashes d enies. N eurologic: Difficulty sleeping d enies. B ipolar d enies. B rain disorder d enies. B alance trouble d enies. C onfusion d enies. F ainting/blackouts d enies. H eadache d enies. T remors d enies. * Medical History: * Surgical History: c holecystectomy 2002kidney stones 2001,2002,2003eye surgery 11/2023 * Hospitalization/Major Diagno stic Procedure: [facility] Chest Pain 06/26/11[facility]- Tendon surgery right middle finger 08/29/14[facility]- [facility] for herniated disc 02/24/15[facility] - 2x for back and 1 for tooth 01/2016[facility]- had a fall 05/30[facility] [place]- Left eye 11/24/23[facility] study * Family History: M other: , tumor on lungs. F ather: . D aughter(s): alive. S iblings: alive, skin cancer, diagnosed with Other malignant neoplasm of unspecified site. 1 daughter(s) . . * Social History: T obacco Use: T obacco use other than smoking A re you an other tobacco user? N o Tobacco Control (Standard) T obacco use: N onsmoker A dditional Findings: Tobacco non-user C urrent nonsmoker M iscellaneous: C affeine: yes, frequency:, 1-2 cups per day. Children: yes, one. Exercise: no. Marital status: . 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 D rug/Alcohol: A ISAAK-C (Standard) D id you have a drink containing alcohol in the past year? N o P oints 0 I nterpretation N egative * Medications: T akingCalcium Magnesium Farxiga Lantus 100 UNIT/ML Solution 0.1 ml [...] reviewed and reconciled with the patient * Allergies: e nvironmental: diarrheayes[Allergies Verified] Objective: * Vitals: H t:6ft, Wt:255, BMI:34.58, Shoe size:10.5W, BP:128/65mm Hg, BS:111, Ht-cm: 182.88 cm, Wt-k.67 kg. * P ast Orders: L ab:HEMOGLOBIN A1C (GLYCOHEMOGLOBIN) (Order Date - 08/05/2024) (Collection Date & Time - 08/05/2024 03:31 PM) Value Reference Range HEMOGLOBIN A1C % (HH) 7 * Examination: O phthalmology Referral: DIABETES EYE EXAM P rocedure Performed: Woodrow Turner ate of Exam Performed 0 09/22/2024 D iabetic Retinopathy Screening: Y es R etinal Screening Performed: Y kateryna F indings of Diabetic Eye Exam: r etinopathy N eurological: SENSORY: N eurological exam demonstrates a loss of protective sensation by an absence of tested sensitivity to 5.07 [place] monofilament at 2 or more sites out of 5 total locations, each foot, P t still relates, p ins and needles sensation, p aresthesia, Forefoot, e specially in the evening, B /L. N ails: NAILS are: E longated, overgrown, dystrophic, lytic, greater than 3mm thick, discolored and friable with crumbly malodorous subungual debris, with pain on palpation, TA, T1, T2, T3, T4, T5, T6, T7, T8, T9. D ermatologic: SKIN FINDINGS: S kin exam reveals Keratotic lesion(s) located at, SUB MTH (s), 1, B/L , SUB MTH (s), 2, B/L, Plantar Heel(s), B/L. I ngrown Nail: INSPECTION: R eveals nail incurvation, dull pain on palpation due to neuropathy, groove hypertrophy, Lateral nail border, T5. Assessment: * Assessment: 1. T ype 1 diabetes mellitus with diabetic polyneuropathy - E10.42 (Primary) 2 . T inea unguium - B35.1 3 . I ngrown nail - L60.0 S pecify : L ateral nail border, T 5 Plan: * Treatment: 2. I ngrown nail P rocedure: 55093-Yguownpp Plate * Procedures: D ebride Nail 6-10: Nail debridement D ue to the clinical pathology outlined in the exam findings, performance of this nail treatment is medically necessary as its management by an unskilled/untrained nonprofessional would put this patients foot and overall health at risk. Therefore, debridement to affected nail(s), as described in exam ( T A, T1, T2, T3, T4, T5, T6, T7, T8, T9 ) , was performed exclusively by the physician of record to reduce/remove overall nail length, girth, thickness, subungual debris, and necrotic tissue, by manual and/or electrical means through the use of a nail nipper and/or dremel-type surface grinder tender, to a more viable healthy nail plate [...] to maintain effectiveness in symptomatic relief - 52069. K eratoma Treatment: Parring or Cutting of Benign Hyperkeratotic Lesion(s) ( -57) More than 4 Lesions - Due to [...] instrumentation by the physician of record - 18748. N ail Avulsion: Location L ateral nail border, T 5. Anesthesia 3 cc of 1 percent Lidocaine Plain local anesthesic utilizing aseptic technique. Procedure A fine sterile elevator was placed between the eponychium, nail fold, and nail plate to separate the structures. A sterile nail splitter, and/or sterile 316 blade, was then used to longitudinally section the nail along its entire length through the eponychium to the area under the nail fold. The offending portion of nail was from the nail bed with a rolling action and then removed with a hemostat. No underlying bone was identified. There was minimal bleeding as hemostasis was achieved through the temporary use of either a digital tourniquet or the aforementioned local with epinephrine. A bacitracin sterile dressing was applied. Local wound aftercare instructions were discussed and dispensed. The patient was informed of both conservative and future surgical procedures to prevent recurrence. Tylenol or Motrin was recommended for pain or discomfort - 63717, DIABETES: Pt was advised as to the risk of delayed or nonhealing due to diabetes. Pt is to call the office with any questions, concerns, or complications. * Procedure Codes: 1 1721 DEBRIDE NAIL, 6 OR MORE, Modifiers: XS 76118 Avulsion Plate, Modifiers: XS , [id number] TRIM SKIN LESIONS, OVER 4, Modifiers: XS * Follow Up: p rn * Images: * Sign off status: Completed true * Provider: Diana Tamayo DPM Date: 01/20/2025 Generated for Wes matthews/Elvia/Mick on: 01/24/2025 06:27 PM EDT History and Physical Notes * HPI (History of Present Illness) Category Sub-Category Detail Notes Category Not es At Risk footcare Pt States Last PCP Visit: Date: Examination Category Sub-Category Detail Notes Category Not es Ingrown Nail INSPECTION: Reveals nail inc urvation, dull pain on palpation due to neuropathy, groove hypertrophy, Lateral nail border, T5 Neurological SENSORY: Neurological exa m demonstrates a loss of protective sensation by an absence of tested sensitivity to 5.07 [place]y monofilament at 2 or more sites out of 5 total locations, each foot, Pt still relates, pins and needles sensation, paresthesia, Forefoot, especially in the evening, B/L Dermatologic SKIN FINDINGS: Skin exam reveal s Keratotic lesion(s) located at, SUB MTH (s), 1, B/L , SUB MTH (s), 2, B/L, Plantar Heel(s), B/L Ophthalmology Referral DIABETES EYE EXAM Procedu re Performed:: Yes Date of Exam Performed: 09/22/2024 Diabetic Retinopathy Screening:: Yes Retinal Screening Performed:: Yes Findings of Diabetic Eye Exam:: retinopa thy Nails NAILS are: Elongated, overg rown, dystrophic, lytic, greater than 3mm thick, discolored and friable with crumbly malodorous subungual debris, with pain on palpation, TA, T1, T2, T3, T4, T5, T6, T7, T8, T9
--- OUTSIDE RECORDS SUMMARY | 2025-01-24 18:27 | XMS_ITS | Encounter Summary ---
Author Organization [facility] Address [address] [place] [address] Care Team Providers Care Finishing Range Operator Name Role Phone Ulysses Escalante MD Primary Care Provider + [phone] Encounter Details Date Type Department Care Team (Late st Contact Info) Description 08/26/2024 Lab Requisition [facility] - Main Lab [address] [facility] [place] [address] Eduard Mendoza MD [address] [place] [phone] Personal history of malignant neoplasm of bladder [...] situ: Not identified 08/30/2024 2:40 PM EDT [facility] Clinical Information Z85.51 - H/O bladder neoplasm (malignant) [id number] 08/30/2024 2:40 PM EDT [facility] Gross Description A. Urinary Bladder, tumor: Labeled bladder tumor . Received in formalin are 4 soft, hernandez-red tissue fragments, measuring 0.4x0.3x0.2cm in greatest diameters, which are wrapped in paper and submitted in toto, one cassette, 4 pieces, multiple levels. /al 08/30/2024 2:40 PM EDT [facility] Disclaimer Unless otherwise specified, all tissue is 10% NB formalin fixed and paraffin embedded. Technical pathology services provided by [facility] [address] [address] [place] [address] (CLIA #[id number]/S diana Michael MD, Edge Trimming Machine Operator) 08/30/2024 2:40 PM EDT [facility] Tissue Urinary bladder structure / Unknown 08/25/2024 08/26/2024 4:37 PM EDT us Eduard Mendoza MD LAB PATHOLOGY ORDERABLES Final Result [facility] [address] [place] [address], documented in this encounter Visit Diagnoses Diagnosis Personal history of malignant neoplasm of bladder documented in this encounter Care Teams Finishing Range Operator Relationship Specialty Start Date End Date Ulysses Escalante MD [address] [place] [address] PCP - General Internal Medicine 10/05/13 documented as of this encounter
--- OUTSIDE RECORDS SUMMARY | 2025-01-24 18:27 | XMS_ITS | Clinical Summary ---
Author Organization [facility] Address [address] [place] [address] Phone Care Team Providers Care Estimator Binding Name Role Phone Ulysses Escalante MD Primary Care Provider [phone] Encounters Date Type Department Care Team Description 01/07/2025 Lab Requisition [facility] [address] [place] [phone] Eduard Mendoza MD Malignant neoplasm of dome of bladder ([facility]/HCC V24, CMS/HCC V28); Urinary tract infection, site not specified 12/30/2024 Lab Requisition [facility] [address] [place] [phone] Sukumar Devlin MD Urinary tract infection, site [...] Annual Urine Albumin-Creatinine Ratio (uACR) 12/20/2024 12/21/2023 COVID-19 Vaccine (3 - 2024-2 6 season) 2025 02/12/2021, 01/09/2021 Influenza Vaccine (#1) 2025 , 02/19/2022, 04/23/2021 [...] Malignant neoplasm of dome of bladder ([facility] V24, [facility] V28) Urinary tract infection, site not specified CULTURE URINE Routine 12/30/2024 12:00 AM EDT Urinary tract infection, site not specified from Last 3 Months Results * Culture urine (01/07/2025 12:00 AM EDT) Only the most recent of2 resultswithin the time period is included. Culture, Urine No growth 01/08/2025 1:47 PM EDT [facility] Urine Urine specimen obtained by clean catch procedure / Unknown 01/07/2025 01/07/2025 6:08 PM EDT us Eduard Mendoza MD LAB MICROBIOLOGY - GENERAL KRYSTEN TELLES Final Result [facility] [address] [place] [address], from Last 3 Months Insurance MEDICARE UNIC[employer] Care Teams Estimator Binding Relationship Specialty Start Date End Date Ulysses Escalante MD [address] [place] [phone] PCP - General Internal Medicine 10/05/13
--- OUTSIDE RECORDS SUMMARY | 2025-01-24 18:27 | XMS_ITS | Clinical Summary ---
Author Organization [facility] Address [address] [place] [address] Care Team Providers Care Rail Doweling Machine Operator Name Role Phone Ulysses Escalante [...] by mouth daily. 0 Active Multiple Minerals (QYXARJN-[id number]-IPZ C) TABS Take 371 mg by mouth [...] age to complete this topic Care Teams Rail Doweling Machine Operator Relationship Specialty Start Date End Date Ulysses Escalante MD PCP - General Internal Medicine 04/24/17
--- OUTSIDE RECORDS SUMMARY | 2025-01-24 18:27 | XMS_ITS | Encounter Summary ---
Author Organization [facility] Address [address] [place] [address] Care Team Providers Care Computer Operations Supervisor Name Role Phone Ulysses Escalante MD Primary Care Provider + [phone] Encounter Details Date Type Department Care Team (Late st Contact Info) Description 12/30/2024 Lab Requisition [facility] - Main Lab [address] [facility] [place] [address] Sukumar Devlin MD [address] [facility] [address] [place] [phone] Urinary tract infection, site not specified Social [...] Urine No growth 12/31/2024 1:34 PM EDT [facility] Urine Topography unknown / Unknown 12/30/2024 12/30/2024 5:43 PM EDT us Sukumar Devlin MD LAB MICROBIOLOGY - GENERAL ORD ERABLES Final Result [facility] [address] [place] [address], documented in this encounter Visit Diagnoses Diagnosis Urinary tract infection, site not specified documented in this encounter Care Teams Computer Operations Supervisor Relationship Specialty Start Date End Date Ulysses Escalante MD [address] [place] [address] PCP - General Internal Medicine 10/05/13 documented as of this encounter
--- OUTSIDE RECORDS SUMMARY | 2025-01-24 18:27 | XMS_ITS | Encounter Summary ---
Author Organization [facility] Address [address] [place] [address] Care Team Providers Care Safety Trainer Name Role Phone Ulysses Escalante MD Primary Care Provider + [phone] Encounter Details Date Type Department Care Team (Late st Contact Info) Description 08/13/2024 Lab Requisition [facility] - Main Lab [address] [facility] [place] [address] Eduard Mendoza MD [address] [place] [phone] Neoplasm of uncertain behavior of bladder Social [...] 12:00 AM EDT) Final Diagnosis Urine, Voided, ([id number]): Suspicious for high grade urothelial carcinoma. Acute inflammation present. Results of UroVysion fluorescence in situ hybridization (FISH) testing: CEP3: Abnormal CEP7: Abnormal CEP17: Abnormal LSI 9p21: Normal Interpretation: Abnormal profile Controls stained appropriately. Note: Abnormal results are considered suspicious for urothelial carcinoma. 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 Urine, Voided, ([id number]): Received one ThinPrep slide for cytology and one ThinPrep slide for UroVysion FISH 08/17/2024 9:38 AM EDT [facility] Disclaimer Unless otherwise specified, all tissue is 10% NB formalin fixed and paraffin embedded. Technical pathology services provided by [facility] [address] [facility] [address] [place] [address] (CLIA #[id number]/Leatha Michael MD, Charter Driver) 08/17/2024 9:38 AM EDT [facility] Tissue Urine specimen from urethra / Unknown 08/06/2024 08/13/2024 11:01 AM EDT us Eduard Mendoza MD LAB PATHOLOGY ORDERABLES Final Result [facility] [address] [place] [address], documented in this encounter Visit Diagnoses Diagnosis Neoplasm of uncertain behavior of bladder documented in this encounter Care Teams Safety Trainer Relationship Specialty Start Date End Date Ulysses Escalante MD [address] [place] [address] PCP - General Internal Medicine 10/05/13 documented as of this encounter
--- OUTSIDE RECORDS SUMMARY | 2025-01-24 18:27 | XMS_ITS | Encounter Summary ---
Author Organization [facility] Address [address] [place] [address] Care Team Providers Care Director Merit System Name Role Phone Ulysses Escalante MD Primary Care Provider [phone] Encounter Details Date Type Department Care Team (Late st Contact Info) Description 01/07/2025 Lab Requisition [facility] - Main Lab [address] [facility] [place] [address] Eduard Mendoza MD [address] [place] [phone] Malignant neoplasm of dome of bladder (CMS/HCC [...] Urine No growth 01/08/2025 1:47 PM EDT [facility] Urine Urine specimen obtained by clean catch procedure / Unknown 01/07/2025 01/07/2025 6:08 PM EDT us Eduard Mendoza MD LAB MICROBIOLOGY - GENERAL KRYSTEN TELLES Final Result [facility] [address] [place] [address], documented in this encounter Visit Diagnoses Diagnosis 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, CMS/HCC V28) Malignant neoplasm of dome of urinary bladder Urinary tract infection, site not specified documented in this encounter Care Teams Director Merit System Relationship Specialty Start Date End Date Ulysses Escalante MD [address] [place] [address] PCP - General Internal Medicine 10/05/13 documented as of this encounter
--- OUTSIDE RECORDS SUMMARY | 2025-01-24 18:27 | XMS_ITS | Clinical Summary ---
Author Organization [facility] Address [address] [place] [address] Care Team Providers Care Respiratory Physician Name Role Phone Unavailable Primary Care Provider Unavailabl e Encounters Date Type Department Care Team Description 11/18/2024 Transcribe Orders [facility] [address] Ulysses Escalante MD Pain of joint of [...] Health Maintenance Due Date Last Done Comments Advance Care Planning 1960 Hepatitis C Virus Screening 1960 DTaP/Tdap/Td Vaccines [...]
--- OUTSIDE RECORDS SUMMARY | 2025-01-24 18:27 | XMS_ITS | Clinical Summary ---
Author Organization [facility] Address [address] [facility] [address] [place] [address] Phone Care Team Providers Care Exploration Driller Name Role Phone Ulysses Escalante MD Primary Care Provider [phone] Allergies Active Allergy Reactions Criticality Noted Date Comments Bee Pollen 06/13/2017 Medications metFORMIN (GLUCOPHAGE) 1000 MG tablet Take 1,000 mg by mouth 2 (two) times a day with meals. Active pravastatin (PRAVACHOL) 40 MG tablet Take 40 mg by mouth daily. Active Bacillus coagulans-inulin 1 billion-250 cell-mg Cap Take 250 mg by mouth daily. Active blood-glucose meter,continuous (DEXCOM G7 MANAGER CARDIOLOGY) MiscIndications: Type 2 diabetes mellitus with peripheral [...] with glycemic control. Up to date with [facility]. Assessment & Plan (12/09/2022 4:42 PM EDT): [...] within 1-2 weeks. Up to date with [facility]. Foot & nail care good. BP under reasonable control. medical terminologist current use of insulin medical terminologist current use of oral hypoglycemic drug Long-term [...] Care Team Description 01/07/2025 Refill [facility] [address] [place] [address] [place] [address] Jailene Yap MD Medication Refill 12/28/2024 Orders Only [facility] [address] [facility] [place] [address] Jailene Yap MD 12/28/2024 Telephone [facility] [address] [place] [address] [place] [address] Jailene Yap MD PCP Recommendation? (PCP Recommendation?) 11/29/2024 4:00 PM EDT Office Visit [facility] [address] [place] [address] Jailene Yap MD Type 2 diabetes mellitus with peripheral neuropathy (Primary Dx); Type 2 diabetes mellitus with retinopathy, with long-term current use of insulin, macular edema presence unspecified, unspecified laterality, unspecified retinopathy severity; Type 2 diabetes mellitus with microalbuminuria; Long-term current use of injectable noninsulin antidiabetic medication; medical terminologist current use of oral hypoglycemic drug; medical terminologist current use of insulin 11/29/2024 Orders Only [address] [phone] Provider, MD Manas from Last 3 Months Immunizations Immunization Administration [...] Description 05/30/2025 1:40 PM EST Office Visit [facility] [address] [phone] Jailene Yap MD [address] [place] [phone] [email or web address] Health Maintenance Due Date Last Done Comments [...] 60-74 years 1-dose series) 2018 COVID-19 VACCINE (1 - 2023-2 5 season) 2024 DIABETIC EYE EXAM 11/23/2024 11/24/2023, 11/12/2023 HEMOGLOBIN A1C 11/28/2024 05/31/2024 INFLUENZA VACCINE (#1) 2024 04/07/2023 CREATININE LEVEL 05/31/2025 05/31/2024, 12/21/2023, 12/09/2022 POTASSIUM [...] HEMOGLOBIN A1C 6.4(H) 4.3 - 5.8 % [facility] Blood 05/31/2024 4:02 PM EST 05/31/2024 4:03 PM EST Jailene Yap MD LAB BLOOD ORDERABLES F inal Result [facility] [address] [place] [address] * (ABNORMAL) Basic metabolic panel (05/31/2024 4:02 PM EST) SODIUM 143 133 - 146 mmol/L [facility] CHLORIDE 104 96 - 108 mmol/L [facility] POTASSIUM 4.3 3.3 - 5.1 mmol/L [facility] CO2 25 21 - 35 mmol/L [facility] BUN 21(H) 6 - 19 mg/dL [facility] CREATININE 1.10 0.5 - 1.5 mg/dL [facility] GLUCOSE 136(H) 70 - 99 mg/dL [facility] CALCIUM 9.9 8.4 - 10.3 mg/dL [facility] EGFR 74 >59 mL/min/1.7 3m2 [facility] Comment:Estimated glomerular filtration rate calculated using the CKD-EPI refit equation. ANION GAP 18 10 - 20 mmol/L [facility] Blood 05/31/2024 4:02 PM EST 05/31/2024 4:03 PM EST Jailene Yap MD LAB BLOOD ORDERABLES F inal Result [facility] [address], [place] [phone] from Last 3 Months or Most Recently Relevant to Health Maintenance Insurance [employer] [facility] MEDICARE SUPPLEMENT MEDICARE PART A & B [employer] MEDICARE SUPPLEMENT MEDICARE PART A & B [employer] [facility] MEDICARE SUPPLEMENT [facility] MEDICARE SUPPLEMENT [facility] MEDICARE SUPPLEMENT MEDICARE PART A & B [facility] [employer] MEDICARE SUPPLEMENT MEDICARE PART A & B [facility] MEDICARE SUPPLEMENT MEDICARE PART A & B [employer] [facility] MEDICARE SUPPLEMENT [employer] [facility] MEDICARE SUPPLEMENT MEDICARE PART A & B Member Subscriber Plan / Payer ( fective 2023-) Name:Coy Garza Member ID:[id number] Relation to Subscriber:Self Name:Coy Garza Subscriber ID:[id number] Payer ID:[id number] Group ID:Not on file Type:Medicare Address: [address] [facility] [facility] [address] [place] [address] Care Teams Exploration Driller Relationship Specialty Start Date End Date Ulysses Escalante MD [address] [place] [address] PCP - General Internal Medicine 09/13/14 Additional Source Comments The information contained in this document represents components of the legal health record. It is not the complete legal health record.[facility]
--- OUTSIDE RECORDS SUMMARY | 2025-01-24 18:27 | XMS_ITS | Encounter Summary ---
Author Organization [facility] Address [address] [facility] [address] [place] [address] Phone Care Team Providers Care Physical Security Engineer Name Role Phone Ulysses Escalante MD Primary Care Provider [phone] Reason for Visit * Reason Onset Date Comments Medication Refill 01/07/2025 Encounter Details Date Type Department Care Team (Late st Contact Info) Description 01/07/2025 Refill [facility] [address] [place] [address] Jailene Yap MD [address] [place] [phone] [email or web address] Medication Refill Social History Tobacco Use [...] Description 05/30/2025 1:40 PM EST Office Visit [facility] Endocrinology [address] [phone] Jailene Yap MD [address] [place] [phone] [email or web address] documented as of this encounter Visit Diagnoses Not on filedocumented in this encounter Care Teams Physical Security Engineer Relationship Specialty Start Date End Date Ulysses Escalante MD [address] [place] [address] PCP - General Internal Medicine 09/13/14 documented as of this encounter Additional Source Comments The information contained in this document represents components of the legal health record. It is not the complete legal health record.[facility]
--- OUTSIDE RECORDS SUMMARY | 2025-01-24 18:28 | XMS_ITS | Encounter Summary ---
Author Organization [facility] Address [address] [facility] [place] [phone] Phone Care Team Providers Care Quarry Equipment Operator Name Role Phone Ulysses Escalante MD Primary Care Provider Encounter Details Date Type Department Care Team (Late st Contact Info) Description 12/28/2024 Orders Only [facility] Endocrinology [address] [place] [phone] Jailene Yap MD [address] [place] [phone] [email or web address] Social History Tobacco Use Types Packs/Day Years [...] 05/30/2025 1:40 PM EST Office Visit [facility] Endocrinology [address] [phone] Jailene Yap MD [address] [place] [phone] [email or web address] documented as of this encounter Visit Diagnoses Not on filedocumented in this encounter Care Teams Quarry Equipment Operator Relationship Specialty Start Date End Date Ulysses Escalante MD [address] [place] [phone] PCP - General Internal Medicine 09/13/14 documented as of this encounter Additional Source Comments The information contained in this document represents components of the legal health record. It is not the complete legal health record[facility]
--- OUTSIDE RECORDS SUMMARY | 2025-01-24 18:28 | XMS_ITS | Patient Health Record ---
Author Organization [facility] Address [address] [facility] [place] [address] Care Team Providers Care Locomotive Pipe Fitter Name Role Phone Ulysses Escalante MD Primary Care Provider Unavail able Tanner Tamayo Unavailable [phone] Allergies Allergen (clinical drug ingredient) Drug/Non Drug [...] Duration) Notes Start Date End Date Status Lantus 100 UNIT/ML 0.1 ml Subcutaneous Once a day; Duration: 30 days 10 Units Active Modafinil 100 MG 1 tablet in the morning Orally Once a day Not-Taking Farxiga Active Levemir 100 UNIT/ML as directed Subcutaneous 50-55 units before bed Not-Taking metFORMIN HCl 2000 mg 1 tablet with meal s Orally Twice a day; Duration: 30 day(s) Active CeleBREX Not-Taking Losartan Potassium 25 MG 1 tablet Orally Active Voltaren 1 % as directed Transdermal Four times a day; Duration: 30 days 02/04/2019 Not-Taking Trulicity Not-Taking Modafinil 300MG Not-Taking Calcium Magnesium Ac tive Semglee 60 units before bed Not-Taking Aspirin 325 MG 1 tablet as needed Orally once daily Not-Taking Ozempic Active Lisinopril 10 MG 1 tablet Orally Once a day Not-Taking NovoLOG 100 UNIT/ML as directed Injection Active Invokana Not-Taking Extra Depth Orthopedic Shoes (1 Pair) with Customized Heat Molded Multidensity Innersoles (3 Pair) as directed Dx: IDDM/Polyneuropathy (E10.42), Hammertoe Foot Deformity (M20.41,M20.42), Preulcerative Skin Lesion(s) (L85.1) Active Pravastatin Sodium 40 MG 1 tablet Orally Once a day; Duration: 30 day(s) Active traMADol HCl 50 MG 1 tablet as needed Orally every 6 hrs Not-Taking Mucinex Not-Taking Calcium + D 600 mg 1 tablet with food Orally Once a day; Duration: 30 day(s) Not-Taking Armodafinil 250 MG 1 tablet in the morning Orally Once a day Not-Taking No Doz Maximum Strength Not-Taking Gabapentin 300 MG 1 capsule Orally at bedtime Not-Taking B Complex Not-Taking Vitamin B12 Not-Taki ng Multivitamins as directed Orally Not-Taking HumaLOG sliding scale Not-Taking Fexofenadine HCl 180 MG 1 tablet Swallow whole with water; do not take with fruit juices. Orally Once a day; Duration: 30 day(s) Not-Taking Vitamin D Not-Taking Immunizations Vaccine Route Administration Date Status Comme nts Influenza Unknown 02/16/2015 Administered Influenza Unknown 02/16/2016 Administered Influenza Unknown 01/20/2017 Administered Influenza Unknown 04/13/2018 Refused Influenza Unknown 05/04/2018 Administered Influenza Unknown 04/05/2019 Administered Influenza Unknown 06/30/2023 Administered COVID-19 Moderna Vaccine Unknown 01/09/2021 Administere d Social History Tobacco Use: Social History Observation [...] Problem Acquired hammer toe of right foot (5095167206894340 ) Other hammer toe(s) (acquired), right foot (M20.41) Active confirmed Problem Acquired hammer toe of left foot (1066372574509776 ) Other hammer toe(s) (acquired), left foot (M20.42) Active confirmed Problem Polyneuropathy due to diabetes mellitus type I (109333022) Type 1 diabetes mellitus with diabetic polyneuropathy (E10.42) Active confirmed Vital Signs Heart Rate 86 /min 10/25/2024 Blood pressure diastolic 65 mm Hg 01/20/2025 Height 6ft in 01/20/2025 Blood pressure systolic 128 mm Hg 01/20/2025 Weight 255 lbs 01/20/2025 BMI 34.58 kg/m2 01/20/2025 Procedures Procedure Date Ordered Date Performed Result Body Sit e 80039-LAVRCRL NAIL, 6 OR MORE 01/26/2024 N/A 29970- Debride <25 sq cm 01/26/2024 N/A 60590-CELZ SKIN LESIONS, 2 TO 4 01/26/2024 N/A 66157-GIXEVAB NAIL, 6 OR MORE 04/30/2024 N/A 02941-TWRS SKIN LESIONS, OVER 4 04/30/2024 N/A 86643-IDKQCUL NAIL, 6 OR MORE 07/19/2024 N/A 94028-MZOG SKIN LESIONS, OVER 4 07/19/2024 N/A , R0162-OCXLB/INJECT, JOINT/BURSA 09/14/2024 N/A , J0702- INJECT TENDON ORIGIN/INSERT 10/04/2024 N/A 74645-TADAQUG NAIL, 6 OR MORE 10/25/2024 N/A , J0702- INJECT TENDON ORIGIN/INSERT 10/25/2024 N/A 26604-QJAN SKIN LESIONS, OVER 4 10/25/2024 N/A 98760-ZBPADWM NAIL, 6 OR MORE 01/20/2025 N/A 53716-Dsjnrdcm Plate 01/20/2025 N/A 42555-ILEL SKIN LESIONS, OVER 4 01/20/2025 N/A Encounters Encounter Location Date Provider Diagnosis [address] [address] 01/26/2024 Tanner Tamayo Type 1 diabetes mellitus with diabetic polyneuropathy E10.42 ; Tinea unguium B35.1 and Skin ulcer of toe of right foot, limited to breakdown of skin L97.[address] [address] 04/30/2024 Tanner Belkis Type 1 diabetes mellitus with diabetic polyneuropathy E10.42 and Tinea unguium B35.[address] [address] 07/19/2024 Tanner Tamayo Type 1 diabetes mellitus with diabetic polyneuropathy E10.42 ; Other hammer toe(s) (acquired), right foot M20.41 ; Onychomycosis B35.1 and Other hammer toe(s) (acquired), left foot M20.[address] [address] 09/14/2024 Tanneriona Tamayo Pain in left foot M79.672 ; Pain in left ankle and joints of left foot M25.572 ; Hallux valgus (acquired), left foot M20.12 ; Bursitis of intermetatarsal bursa of left foot M77.52 ; Hallux rigidus of left foot M20.22 and Type 1 diabetes mellitus with diabetic polyneuropathy E10.[address] [address] 10/04/2024 Tanner Tamayo Posterior tibial tendinitis of left lower extremity M76.[address] [address] 10/25/2024 Tanner Tamayo Type 1 diabetes mellitus with diabetic polyneuropathy E10.42 ; Posterior tibial tendinitis of left lower extremity M76.822 and Tinea unguium B35.[address] [address] 01/20/2025 Tanner Tamayo Type 1 diabetes mellitus with diabetic polyneuropathy E10.42 ; Tinea unguium B35.1 and Ingrown nail L60.[address] [facility] [address] 04/21/2024 Tanner Bel[facility]is [facility] [address] 09/14/2024 Tanner Belkis [facility] [address] 10/04/2024 Tanner Tamayo Assessments Encounter Date Diagnosis [...] Pain in left foot (ICD-10 - M79.672) 10/25/2024 Posterior tibial tendinitis of left lower extremity (ICD-10 - M76.822) Patient Educated with: RICE THERAPY.pdf (RICE THERAPY.pdf) Patient Educated with: INJECTIONTHER APY.pdf (INJECTIONTHE RAPY.pdf) 01/20/2025 Type 1 diabetes mellitus with diabetic polyneuropathy (ICD-10 - E10.42) 01/20/2025 Tinea unguium (ICD-10 - B35.1) 10/04/2024 Posterior tibial tendinitis of left lower extremity (ICD-10 - M76.822) Patient Educated with: RICE THERAPY.pdf (RICE THERAPY.pdf) Patient Educated with: INJECTIONTHER APY.pdf (INJECTIONTHE RAPY.pdf) 10/25/2024 Type 1 diabetes mellitus with diabetic polyneuropathy (ICD-10 - E10.42) 10/25/2024 Tinea unguium (ICD-10 - B35.1) 01/20/2025 Ingrown nail (ICD-10 - L60.0) 09/14/2024 Hallux valgus (acquired), left foot (ICD-10 [...] Other 04/30/2024 Other 09/14/2024 Other 10/04/2024 Other 01/20/2025 Other Plan Of Treatment Pending Test Test Name Order Date Hemoglobin A1c 05/24/2015 X ray : Foot, left 3V 01/25/2013 X ray : Foot, left 3V 09/14/2024 X ray : Foot, right 3V 01/25/2013 93777-TLCNQMU NAIL, 6 OR MORE 11/10/2014 71952-PRBUXUL NAIL, 6 OR MORE 05/26/2014 57557-NIJNWAE NAIL, 6 OR MORE 08/25/2014 06020-EUIUXWJ NAIL, 6 OR MORE 08/02/2015 83043-OZAEXHS NAIL, 6 OR MORE 10/12/2015 09892-ZSGMJLP NAIL, 6 OR MORE 03/09/2015 85964-SCUQFEB NAIL, 6 OR MORE 05/24/2015 94130-JDMUBID NAIL, 6 OR MORE 12/21/2015 27503-EJYGWOK NAIL, 6 OR MORE 02/22/2016 41249-LEIZIGS NAIL, 6 OR MORE 05/01/2016 28136-ZXXJIHF NAIL, 6 OR MORE 07/10/2016 20065-LEXNMGN NAIL, 6 OR MORE 09/19/2016 93067-SJQHWYP NAIL, 6 OR MORE 11/28/2016 83585-AIUHEEW NAIL, 6 OR MORE 02/03/2017 26886-RVBBJFR NAIL, 6 OR MORE 04/14/2017 61697-CSIJMIM NAIL, 6 OR MORE 01/25/2013 18463-NQOEAHA NAIL, 6 OR MORE 04/07/2013 58815-KHAFNFU NAIL, 6 OR MORE 07/12/2013 76293-VNCWOQZ NAIL, 6 OR MORE 09/22/2013 12217-IOESMTP NAIL, 6 OR MORE 12/08/2013 01495-XZLPXTZ NAIL, 6 OR MORE 03/02/2014 82430-UOVVNTK NAIL, 6 OR MORE 06/17/2011 29849-VFJBOLP NAIL, 6 OR MORE 09/16/2011 87563-CIJKKIM NAIL, 6 OR MORE 11/04/2011 06694-FRXOAYL NAIL, 6 OR MORE 02/03/2012 66701-BVXAYGM NAIL, 6 OR MORE 06/01/2012 69604-ONEJVPG NAIL, 6 OR MORE 08/10/2012 29478-STPTWYK NAIL, 6 OR MORE 10/15/2012 81198-EREHNTG NAIL, 6 OR MORE 06/25/2017 83553-UIAVVHB NAIL, 6 OR MORE 08/27/2017 42734-WTGSWHO NAIL, 6 OR MORE 11/03/2017 87718-NLKRVZA NAIL, 6 OR MORE 02/02/2018 52616-XAKDBCG NAIL, 6 OR MORE 04/13/2018 60184-KQSDICW NAIL, 6 OR MORE 06/25/2018 41404-IJYMSQX NAIL, 6 OR MORE 08/27/2018 25418-MJWQCME NAIL, 6 OR MORE 02/04/2019 67141-OIRNZLW NAIL, 6 OR MORE 04/19/2019 82156-FHRBJMI NAIL, 6 OR MORE 06/28/2019 41917-XUUWIJT NAIL, 6 OR MORE 09/08/2019 76947-KYVYJTJ NAIL, 6 OR MORE 12/02/2019 14346-GPTHJSX NAIL, 6 OR MORE 02/03/2020 11901-OFIXBAU NAIL, 6 OR MORE 04/06/2020 83962-WZZKBAF NAIL, 6 OR MORE 06/12/2020 29440-NITLDMA NAIL, 6 OR MORE 08/28/2020 67015-BUQOFYZ NAIL, 6 OR MORE 11/09/2020 09025-OKBHUZK NAIL, 6 OR MORE 02/05/2021 30664-RMQRRFE NAIL, 6 OR MORE 04/16/2021 23097-OOKNBAB NAIL, 6 OR MORE 07/23/2021 13079-IVKJAJP NAIL, 6 OR MORE 10/01/2021 23106-TQRGGDP NAIL, 6 OR MORE 12/17/2021 74091-BHESRTE NAIL, 6 OR MORE 03/07/2022 90007-VFCMJPV NAIL, 6 OR MORE 05/23/2022 85406-CWBOPCY NAIL, 6 OR MORE 08/01/2022 23131-EEOVDXQ NAIL, 6 OR MORE 11/07/2022 16624-CMECFNX NAIL, 6 OR MORE 01/22/2023 99006-IOAXALR NAIL, 6 OR MORE 04/16/2023 64695-CLJXBZZ NAIL, 6 OR MORE 07/03/2023 66020-KBDXXXW NAIL, 6 OR MORE 09/04/2023 67017-TVCBCVQ NAIL, 6 OR MORE 11/13/2023 47177-QQIXLCR NAIL, 6 OR MORE 10/25/2024 97235-FFIZFYJ NAIL, 6 OR MORE 01/20/2025 54641-EAIACJS NAIL, 6 OR MORE 01/26/2024 16207-BBOGFUN NAIL, 6 OR MORE 04/30/2024 02040-KAUMAVD NAIL, 6 OR MORE 07/19/2024 09678-Ojfmxvti Plate 07/03/2023 10441-Xqbnurfw Plate 01/20/2025 25955-Adrrxith Plate 02/04/2019 21506-Jdqjwkaz Plate 04/13/2018 30118-Pylnnsfg Plate 06/01/2012 71472-Tzferzkq Plate 02/03/2012 62824-Vnlcfuqw Plate 06/17/2011 76805-Ckaaykap Plate 09/16/2011 23384-Gowzktcb Plate 03/02/2014 30850-Sqrjokjs Plate 12/08/2013 65451-Rxqokhoh Plate 09/22/2013 53876-Uuzvyqyv Plate 01/25/2013 58033-Vgyxbypi Plate Each Additional 64031- Debride <25 sq cm 01/26/2024 32909 I&D ABSCESS- SIMPLE,SINGLE 024 72319 I&D ABSCESS- SIMPLE,SINGLE 017 89866, J0702- INJECT TENDON ORIGIN/INSER T 10/04/202447903, J0702- INJECT TENDON ORIGIN/INSER T 10/25/2024 42081-SUVQ SKIN LESIONS, OVER 4 10/26/19 77190-UJSH SKIN LESIONS, OVER 4 01/21/20 00995-INPE SKIN LESIONS, OVER 4 07/20/19 54698-QIWK SKIN LESIONS, OVER 4 04/30/20 06642-ASRA SKIN LESIONS, 2 TO 4 01/26/20 24 03841-PSLU SKIN LESIONS, 2 TO 4 02/03/20 18 68039-IXHT SKIN LESIONS, 2 TO 4 11/04/19 18 94342-HYMC SKIN LESIONS, 2 TO 4 08/28/19 18 93981-IENA SKIN LESIONS, 2 TO 4 06/25/19 19 47125-YWIJ SKIN LESIONS, 2 TO 4 08/28/19 19 79741-JSXM SKIN LESIONS, 2 TO 4 04/13/20 18 91096-QUIF SKIN LESIONS, 2 TO 4 02/05/20 19 43148-MBRD SKIN LESIONS, 2 TO 4 04/19/20 08926-DDQE SKIN LESIONS, 2 TO 4 09/08/19 20 08443-XZQA SKIN LESIONS, 2 TO 4 06/28/19 20 55330-DFCZ SKIN LESIONS, 2 TO 4 06/12/19 21 95876-NIQL SKIN LESIONS, 2 TO 4 04/06/20 73626-ISQF SKIN LESIONS, 2 TO 4 02/03/20 73356-WDEN SKIN LESIONS, 2 TO 4 12/02/19 70311-MFNS SKIN LESIONS, 2 TO 4 11/13/19 24 73145-VKZN SKIN LESIONS, 2 TO 4 09/04/19 24 01701-ODYM SKIN LESIONS, 2 TO 4 07/03/19 24 07589-UJWG SKIN LESIONS, 2 TO 4 04/16/20 23 47324-NGPZ SKIN LESIONS, 2 TO 4 01/23/20 31946-YLGS SKIN LESIONS, 2 TO 4 11/08/19 53512-TPUK SKIN LESIONS, 2 TO 4 08/02/19 23 15687-SQCJ SKIN LESIONS, 2 TO 4 05/23/19 23 64978-VXEJ SKIN LESIONS, 2 TO 4 03/07/20 62880-KYYB SKIN LESIONS, 2 TO 4 12/18/19 32145-DGYL SKIN LESIONS, 2 TO 4 10/02/19 96977-AMMJ SKIN LESIONS, 2 TO 4 07/24/19 22 51840-OXGQ SKIN LESIONS, 2 TO 4 04/16/20 21 82485-YRMR SKIN LESIONS, 2 TO 4 02/06/20 44532-DXGA SKIN LESIONS, 2 TO 4 11/10/19 21 82580-DBPM SKIN LESIONS, 2 TO 4 08/29/19 21 27608-KJUX SKIN LESIONS, 2 TO 4 03/02/20 14 96075-HLAI SKIN LESIONS, 2 TO 4 09/23/19 14 32456-GCGG SKIN LESIONS, 2 TO 4 12/09/19 14 02883-IXLR SKIN LESIONS, 2 TO 4 01/26/20 13 58025-SWHC SKIN LESIONS, 2 TO 4 07/12/19 14 77611-UKHT SKIN LESIONS, 2 TO 4 04/07/20 13 97096-JTDB SKIN LESIONS, 2 TO 4 09/16/19 12 09704-PEAW SKIN LESIONS, 2 TO 4 06/17/19 12 57532-ZCWD SKIN LESIONS, 2 TO 4 11/04/19 12 01538-NWKP SKIN LESIONS, 2 TO 4 02/03/20 12 28608-YMUK SKIN LESIONS, 2 TO 4 06/01/19 13 84790-MQCI SKIN LESIONS, 2 TO 4 10/16/19 13 97583-GHYO SKIN LESIONS, 2 TO 4 08/11/19 13 13905-YMPI SKIN LESIONS, 2 TO 4 06/25/19 18 84461-OQLQ SKIN LESIONS, 2 TO 4 04/14/20 17 59903-CWJV SKIN LESIONS, 2 TO 4 02/04/20 17 79188-YATP SKIN LESIONS, 2 TO 4 11/29/19 17 26042-RFLZ SKIN LESIONS, 2 TO 4 07/10/19 17 21316-KHHA SKIN LESIONS, 2 TO 4 09/20/19 17 67619-MBOP SKIN LESIONS, 2 TO 4 05/01/20 16 21054-HDDI SKIN LESIONS, 2 TO 4 02/22/20 16 30908-NDUF SKIN LESIONS, 2 TO 4 12/21/19 16 04792-MSNS SKIN LESIONS, 2 TO 4 05/24/19 16 26144-WLSK SKIN LESIONS, 2 TO 4 03/09/20 15 62041-QBZL SKIN LESIONS, 2 TO 4 10/12/19 16 93085-DWTQ SKIN LESIONS, 2 TO 4 08/02/19 16 94941-CJGT SKIN LESIONS, 2 TO 4 05/26/19 15 34198-IWIS SKIN LESIONS, 2 TO 4 11/11/19 15 70964-IEAG SKIN LESIONS, 2 TO 4 08/26/19 15 89893, H4027-SQMQX/INJECT, JOINT/BURSA 0 08/25/2014 13811, C0059-VYIBJ/INJECT, JOINT/BURSA 1 05/31/2013 75916, H0418-TKNQH/INJECT, JOINT/BURSA 0 11/07/202211213, A8126-ZBTRO/INJECT, JOINT/BURSA 0 11/13/2023 22306, R3237-ACGWY/INJECT, JOINT/BURSA 0 06/25/2018 19574, B5974-KIMWL/INJECT, JOINT/BURSA 0 02/02/201849731, Q7158-FBQZU/INJECT, JOINT/BURSA 0 09/14/2024 Next Appt Details Provider Name:Tanner Tamayo , 05/02/2025 02:30:00 PM, [address] [facility] [place] [address], [place], [address], Insurance Providers Payer Name Payer Address Payer Phone Subscriber Number Group Number Insured Name Patient Relationship to Insured Coverage Start Date Coverage End Date Medicare [facility] [address] [place] [address] [id number] Coy Garza Self - patient is the insured [facility] ([facility] [address] [place] [address] [phone] [id number] Coy Garza Self - patient is the insured Medical (General) History Medical History History ICD Code hypertension gall bladder problems sleep apnea Cholesterol Diabetic Bladder Cancer - 2024 Surgical History Surgery Date(Month/Year) cholecystectomy 2001 kidney stones 2001,2002,2003 eye surgery 11/2023 Hospitalization History Reason Date(Month/Year) sleep study [facility]- Left eye 11/24/23 [facility]- had a fall 05/30 [facility] - 2x for back and 1 for tooth 01/2016 [facility]- MRI for herniated disc 02/24/15 [facility]- Tendon surgery right middle finger 08/29/14 [facility] Chest Pain 06/26/11
== END 2025-01-24 15:36 | disposition home or self-care (01) ==
LOC: HO.HMGAL 15:27
PROVIDERS: PCP Internal Medicine; Visit Provider Registered Nurse Emergency
DX: J30.89 Other allergic rhinitis (principal)
CPT/HCPCS: 95117; 95165

== ENCOUNTER 2025-02-21 11:57 | Outpatient (AMB) | payer MEDICARE, OTHER, SELFPAY ==
--- OUTSIDE RECORDS SUMMARY | 2024-10-14 11:45 | XMS_ITS ---
Author Organization [facility] Address [address] [facility] [place] [address] Care Team Providers Care Base Remover Name Role Phone Ulysses Escalante MD Primary Care Provider Unavail Tanner Art Unavailable [phone] Encounters Encounter Location Date Provider Diagnosis [address] [place] [address] [address] 10/14/2024 Tanner Tamayo Plan Of Treatment Next Appt Details Provider Name:Tanner Tamayo , 05/02/2025 02:30:00 PM, [address] [address], [place], [address], Progress Notes * Coy LORENZ LDOB:[birth year] (64 yo M)Acc No.[id number]:10/14/2024 Progress Note Patient: Coy FONSECA Provider: Diana Tamayo DPM :1960 A ge:63 Y S ex:Male Date:10/14/2024 Address:[address], [place] Pcp:Ulysses Escalante MD Subjective: * Chief Complaints: * * Medical History: Objective: * Vitals: Assessment: Plan: * Treatment: * Images: * The named appointment provid er may or may not be the originator of this progress note, and it is not deemed complete until electronically signed by the appointment provider. Sign off status: Pending * Provider: Diana Tamayo DPM Date: 0 10/14/2024 Generated for Wes matthews/Elvia/Mick on: 1 02:28 PM EDT
--- OUTSIDE RECORDS SUMMARY | 2025-02-17 14:17 | XMS_ITS | Encounter Summary ---
Author Organization [facility] Address [address] [place] [address] Phone Care Team Providers Care Coffee Sommelier Name Role Phone Ulysses Escalante MD Primary Care Provider Eduard Mendoza MD Unavailable Encounter Details Date Type Department Care Team (Latest Contact Info) Description 02/17/2025 2:17 PM EDT - 02/17/2025 11:59 PM EDT Hospital Encounter Central Pathology, [facility] [address] [place] [address] Discharge Disposition: Home or Self Care Social History Tobacco Use Types Packs/Day Years [...] on file documented as of this encounter Medications at Time of Discharge ADMELOG SOLOSTAR U-100 INSULIN 100 unit/mL injection penIndications:Typ e 2 diabetes mellitus with peripheral neuropathy INJECT 30-35 UNITS, SUBCUTANEOUSLY , 3 TIMES A DAY BEFORE MEALS PLUS 2 UNITS TO PRIME NEEDLE WITH EACH DOSE 60 mL 1 08/23/2024 Bacillus coagulans-inulin 1 billion-250 cell-mg Cap Take 250 mg by mouth daily. blood-glucose meter,continuous (DEXCOM G7 TITLE AGENT) MiscIndications:Ty pe 2 diabetes mellitus with peripheral neuropathy Use as directed to monitor glucose 1 each 12/09/2022 blood-glucose sensor (DEXCOM G7 SENSOR) DeviIndications:Ty pe 2 diabetes mellitus with peripheral neuropathy USE DIRECTED TO MONITOR GLUCOSE, CHANGE EVERY 10 DAYS 9 each 3 11/10/2023 CALCIUM-MAGNESIUM- ZINC ORAL Take by mouth. doxycycline monohydrate (ADOXA) 50 MG tablet Take 50 mg by mouth daily. LANTUS SOLOSTAR U-100 INSULIN 100 unit/mL (3 mL) InPn injection penIndications:Typ e 2 diabetes mellitus with peripheral neuropathy Inject 60 Units under the skin daily. 60 mL 3 04/15/2023 losartan (COZAAR) 50 MG tablet Take 25 mg by mouth daily. metFORMIN (GLUCOPHAGE) 1000 MG tablet Take 1,000 mg by mouth 2 (two) times a day with meals. pravastatin (PRAVACHOL) 40 MG tablet Take 40 mg by mouth daily. tirzepatide (MOUNJARO) 5 mg/0.5 mL PnIj subcutaneous penIndications:Typ e 2 diabetes mellitus with peripheral neuropathy INJECT 0.5 ML (5 MG TOTAL) UNDER THE SKIN ONE TIME PER WEEK 2 mL 5 02/09/2025 documented as of this encounter Plan of Treatment Upcoming Encounters Date Type Department Care Team (Late st Contact Info) Description 03/01/2025 12:15 PM EDT Administrative Encounter [facility] [place] [address] [address] Ricky Beltran MD, MPH [address] [place] [address] [email or web address] 03/01/2025 1:00 PM EDT Office Visit [facility], [facility] [place] [address] [facility] [address] [place] [address] Ricky Beltran MD, MPH [address] [address] [email or web address] 05/30/2025 1:40 PM EST Office Visit [facility] [address] [phone] Jailene Yap MD [address] [address] [email or web address] documented as of this encounter Visit Diagnoses Diagnosis Malignant neoplasm of urinary bladder, unspecified site documented in this encounter Care Teams Coffee Sommelier Relationship Specialty Start Date End Date Ulysses Escalante MD [address] [place] [address] PCP - General Internal Medicine 09/13/14 Eduard Mendoza MD [address] [place] [address] [address] [place] [address] [email or web address] Referring Physician Urology 02/11/25 documented as of this encounter Additional Source Comments The information contained in this document represents components of the legal health record. It is not the complete legal health record.[facility]
--- OUTSIDE RECORDS SUMMARY | 2025-02-21 14:28 | XMS_ITS | Encounter Summary ---
Author Organization [facility] Address [address] [place] [address] Care Team Providers Care Commercial Credit Lead Name Role Phone Ulysses Escalante MD Primary Care Provider + [phone] Encounter Details Date Type Department Care Team (Late st Contact Info) Description 08/26/2024 Lab Requisition [facility] - Main Lab [address] [facility] [place] [address] Eduard Mendoza MD [address] [place] [phone] Personal history of malignant neoplasm of bladder [...] 2:40 PM EDT [facility] at 1439 EDT Clinical Information Z85.51 - H/O bladder neoplasm (malignant) [id number] 08/30/2024 2:40 PM EDT [facility] [address] [facility] [address] [place] [address] (CLIA #[id number]/S diana Michael MD, Emergency Vehicle Dispatcher) 08/30/2024 2:40 PM EDT [facility] Tissue Urinary bladder structure / Unknown 08/25/2024 08/26/2024 4:37 PM EDT us Eduard Mendoza MD LAB PATHOLOGY ORDERABLES Final Result [facility] [address] [place] [address], documented in this encounter Visit Diagnoses Diagnosis Personal history of malignant neoplasm of bladder documented in this encounter Care Teams Commercial Credit Lead Relationship Specialty Start Date End Date Ulysses Escalante MD [address] [place] [address] PCP - General Internal Medicine 10/05/13 documented as of this encounter
--- OUTSIDE RECORDS SUMMARY | 2025-02-21 14:28 | XMS_ITS | Encounter Summary ---
Author Organization [facility] Address [address] [place] [address] Care Team Providers Care Manager Diesel Name Role Phone Ulysses Escalante MD Primary Care Provider + [phone] Encounter Details Date Type Department Care Team (Late st Contact Info) Description 01/07/2025 Lab Requisition [facility] - Main Lab [address] [facility] [place] [address] Eduard Mendoza MD [address] [place] [phone] Malignant neoplasm of dome of bladder (CMS/HCC [...] Urine No growth 01/08/2025 1:47 PM EDT [facility] Urine Urine specimen obtained by clean catch procedure / Unknown 01/07/2025 01/07/2025 6:08 PM EDT us Eduard Mendoza MD LAB MICROBIOLOGY - GENERAL KRYSTEN TELLES Final Result [facility] [address] [place] [address], documented in this encounter Visit Diagnoses Diagnosis 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
--- OUTSIDE RECORDS SUMMARY | 2025-02-21 14:28 | XMS_ITS | Encounter Summary ---
Author Organization [facility] Address [address] [place] [address] Care Team Providers Care Health Education Coordinator Name Role Phone Ulysses Escalante MD Primary Care Provider + [phone] Encounter Details Date Type Department Care Team (Late st Contact Info) Description 08/13/[address] [facility] - Main Lab [address] [facility] [place] [address] Eduard Mendoza MD [address] [place] [phone] Neoplasm of uncertain behavior of bladder Social [...] 12:00 AM EDT) Final Diagnosis Urine, Voided, ([id number]): Suspicious for high grade urothelial carcinoma. Acute [...] HOSPITAL LAB Gross Description A. Urine, Voided, ([id number]): Received one ThinPrep slide for cytology and one ThinPrep slide for UroVysion FISH 08/17/2024 9:38 AM EDT [facility] Disclaimer Unless otherwise specified, all tissue is 10% NB formalin fixed and paraffin embedded. Technical pathology services provided by [facility] [address] [facility] [address] [place] [address] (CLIA #[id number]/Leatha Michael MD, Picture Booker) 08/17/2024 9:38 AM EDT [facility] Tissue Urine specimen from urethra / Unknown 08/06/2024 08/13/2024 11:01 AM EDT us Eduard Mendoza MD LAB PATHOLOGY ORDERABLES Final Result [facility] [address] [place] [address], documented in this encounter Visit Diagnoses Diagnosis Neoplasm of uncertain behavior of bladder documented in this encounter Care Teams Health Education Coordinator Relationship Specialty Start Date End Date Ulysses Escalante MD [address] [place] [address] PCP - General Internal Medicine 10/05/13 documented as of this encounter
--- OUTSIDE RECORDS SUMMARY | 2025-02-21 14:28 | XMS_ITS | Clinical Summary ---
Author Organization [facility] Address [address] [place] [address] Care Team Providers Care Hide And Skin Colerer Name Role Phone Unavailable Primary Care Provider Unavailabl e Social History Tobacco Use Types Packs/Day Years [...] Zoster (Shingles) Vaccine (1 of 2) 2008 Influenza Vaccine 12/17/2024 COVID-19 Vaccine (1 - 2023-2 5 season) 2025 RSV Vaccine 60 years and old er and Patients (1 - 1-dose 75+ series) 2033 Hepatitis B Vaccines Aged Out No long er eligible based on patient's age to complete this topic Insurance MEDICARE PART A & B
--- OUTSIDE RECORDS SUMMARY | 2025-02-21 14:28 | XMS_ITS | Clinical Summary ---
Author Organization [facility] Address [address] [place] [address] Care Team Providers Care Machine Quilt Stuffer Name Role Phone Ulysses Escalante MD Primary [...] by mouth daily. 0 Active Multiple Minerals (HUVNGTG-WOBDPGWBP-GAB C) TABS Take 371 mg by mouth [...] age to complete this topic Care Teams Machine Quilt Stuffer Relationship Specialty Start Date End Date Ulysses Escalante MD PCP - General Internal Medicine 04/24/17
--- OUTSIDE RECORDS SUMMARY | 2025-02-21 14:29 | XMS_ITS | Patient Health Record ---
Author Organization [facility] Address [address] [facility] [place] [address] Care Team Providers Care Spooler Operator Name Role Phone Ulysses Escalante MD Primary Care Provider Unavail able Tanner Tamayo Unavailable [phone] Allergies Allergen (clinical drug ingredient) Drug/Non Drug [...] Problem Acquired hammer toe of right foot (7278703545989961 ) Other hammer toe(s) (acquired), right foot (M20.41) Active confirmed Problem Acquired hammer toe of left foot (7800022692011856 ) Other hammer toe(s) (acquired), left foot (M20.42) Active confirmed Problem Polyneuropathy due to diabetes mellitus type I (373847021) Type 1 diabetes mellitus with diabetic polyneuropathy (E10.42) Active confirmed Vital Signs Heart Rate 86 /min 10/25/2024 Blood pressure diastolic 65 mm Hg 01/20/2025 Height 6ft in 01/20/2025 Blood pressure systolic 128 mm Hg 01/20/2025 Weight 255 lbs 01/20/2025 BMI 34.58 kg/m2 01/20/2025 Procedures Procedure Date Ordered Date Performed Result Body Sit e 22972-OEJEWDF NAIL, 6 OR MORE 04/30/2024 N/A 27118-GDDQ SKIN LESIONS, OVER 4 04/30/2024 N/A 28529-ILWAZJK NAIL, 6 OR MORE 07/19/2024 N/A 16860-LNBR SKIN LESIONS, OVER 4 07/19/2024 N/A 14518, I6347-QCQQC/INJECT, JOINT/BURSA 09/14/2024 N/A 46646, J0702- INJECT TENDON ORIGIN/INSERT 10/04/2024 N/A 38939-ZLMFDDL NAIL, 6 OR MORE 10/25/2024 N/A 03808, J0702- INJECT TENDON ORIGIN/INSERT 10/25/2024 N/A 25816-MYBA SKIN LESIONS, OVER 4 10/25/2024 N/A 94190-EPLKKQM NAIL, 6 OR MORE 01/20/2025 N/A 35797-Sbbumlkp Plate 01/20/2025 N/A 57239-BMEP SKIN LESIONS, OVER 4 01/20/2025 N/A Encounters Encounter Location Date Provider Diagnosis [facility] [address] [address] 04/30/2024 Tanneriona Huttonier Type 1 diabetes mellitus with diabetic polyneuropathy E10.42 and Tinea unguium B35.[address] [address] 07/19/2024 Tanneriona PalominoBelkis Type 1 diabetes mellitus with diabetic polyneuropathy E10.42 ; Other hammer toe(s) (acquired), right foot M20.41 ; Onychomycosis B35.1 and Other hammer toe(s) (acquired), left foot M20.[address] [address] 09/14/2024 Tanner Belkis Pain in left foot M79.672 ; Pain in left ankle and joints of left foot M25.572 ; Hallux valgus (acquired), left foot M20.12 ; Bursitis of intermetatarsal bursa of left foot M77.52 ; Hallux rigidus of left foot M20.22 and Type 1 diabetes mellitus with diabetic polyneuropathy E10.[address] [address] 10/04/2024 Tanneriona Tamayo Posterior tibial tendinitis of left lower extremity M76.[address] [address] 10/25/2024 Tanneriona Tamayo Type 1 diabetes mellitus with diabetic polyneuropathy E10.42 ; Posterior tibial tendinitis of left lower extremity M76.822 and Tinea unguium B35.[address] [address] 01/20/2025 Tanneriona Tamayo Type 1 diabetes mellitus with diabetic polyneuropathy E10.42 ; Tinea unguium B35.1 and Ingrown nail L60.[address] [address] 04/21/2024 Tanner Belkis [address] [address] 09/14/2024 Tanner Belkis [address] [address] 10/04/2024 Tanner Tamayo Assessments Encounter Date Diagnosis (ICD Code) Assessment Notes Treatment Notes Treatment Clinical Notes Section Notes 04/30/2024 Type 1 diabetes mellitus with diabetic polyneuropathy (ICD-10 - E10.42) 04/30/2024 Tinea unguium (ICD-10 - B35.1) 07/19/2024 Other hammer toe(s) (acquired), right foot (ICD-10 - M20.41) Patient Educated with: DIABETIC FOOT CARE INSTRUCTIONS. pdf (DIABETIC FOOT CARE INSTRUCTIONS. pdf) 09/14/2024 Pain in left ankle and joints of left foot (ICD-10 - M25.572) 09/14/2024 Pain in left foot (ICD-10 - M79.672) 07/19/2024 Type 1 diabetes mellitus with diabetic polyneuropathy (ICD-10 - E10.42) 10/04/2024 Posterior tibial tendinitis of left lower [...] B35.1) 01/20/2025 Ingrown nail (ICD-10 - L60.0) 10/25/2024 Tinea unguium (ICD-10 - B35.1) 07/19/2024 Onychomycosis (ICD-10 - B35.1) 09/14/2024 Hallux valgus (acquired), left foot (ICD-10 - M20.12) 07/19/2024 Other hammer toe(s) (acquired), left foot (ICD-10 - M20.42) 09/14/2024 Bursitis of intermetatarsal bursa of left foot (ICD-10 - M77.52) Patient Educated with: RICE THERAPY.pdf (RICE THERAPY.pdf) Patient Educated with: JAZ RING.pdf (INJECTIONTHE RAPY.pdf) 09/14/2024 Hallux rigidus of left foot (ICD-10 - M20.22) 09/14/2024 Type 1 diabetes mellitus with diabetic polyneuropathy (ICD-10 - E10.42) 04/30/2024 Other 09/14/2024 Other 10/04/2024 Other 01/20/2025 Other Plan Of Treatment Pending Test Test Name Order Date Hemoglobin A1c 05/24/2015 X ray : Foot, left 3V 09/14/2024 X ray : Foot, left 3V 01/25/2013 X ray : Foot, right 3V 01/25/2013 78808-LWTVQMP NAIL, 6 OR MORE 10/12/2015 36540-RXUXZKJ NAIL, 6 OR MORE 12/21/2015 48631-LSXKJKS NAIL, 6 OR MORE 02/22/2016 27699-BHWBPGS NAIL, 6 OR MORE 08/25/2014 87666-IJIFGYC NAIL, 6 OR MORE 09/22/2013 38082-NIPVXQP NAIL, 6 OR MORE 06/17/2011 05770-ITNVLWV NAIL, 6 OR MORE 09/16/2011 95011-MFSEIQP NAIL, 6 OR MORE 11/04/2011 37587-OWXHHRH NAIL, 6 OR MORE 02/03/2012 66031-AVLVJGV NAIL, 6 OR MORE 06/01/2012 08233-SDQRMEE NAIL, 6 OR MORE 08/10/2012 62140-NMJFADE NAIL, 6 OR MORE 01/25/2013 62184-BUKZVSQ NAIL, 6 OR MORE 05/01/2016 04599-PNPXKYK NAIL, 6 OR MORE 07/10/2016 68901-GZYEGCA NAIL, 6 OR MORE 09/19/2016 28847-SRAEPZY NAIL, 6 OR MORE 11/28/2016 54923-RZDZDLK NAIL, 6 OR MORE 04/14/2017 08466-FCFUSOW NAIL, 6 OR MORE 06/25/2017 09560-AJYLZAP NAIL, 6 OR MORE 08/27/2017 46601-KYNPDFG NAIL, 6 OR MORE 11/03/2017 58865-VKJWDKB NAIL, 6 OR MORE 02/02/2018 10254-JKAPFOF NAIL, 6 OR MORE 08/27/2018 17305-ICKVWYH NAIL, 6 OR MORE 02/04/2019 95775-XTLQQPY NAIL, 6 OR MORE 06/28/2019 55601-QVOVRPX NAIL, 6 OR MORE 09/08/2019 40938-VPPATXQ NAIL, 6 OR MORE 12/02/2019 46727-AVYPSXU NAIL, 6 OR MORE 02/03/2020 90116-LIDQAKB NAIL, 6 OR MORE 04/06/2020 96183-YFQWFSW NAIL, 6 OR MORE 10/25/2024 24694-GGOXRIV NAIL, 6 OR MORE 04/30/2024 00671-AAMDUVQ NAIL, 6 OR MORE 07/19/2024 83702-FXEDUAR NAIL, 6 OR MORE 01/20/2025 49362-YKOTPYV NAIL, 6 OR MORE 07/23/2021 81611-WTFPJAF NAIL, 6 OR MORE 08/28/2020 36034-GNUQFIX NAIL, 6 OR MORE 03/09/2015 43382-NNILAGM NAIL, 6 OR MORE 11/10/2014 97348-DCBVQKF NAIL, 6 OR MORE 02/03/2017 59848-GVMPCEU NAIL, 6 OR MORE 08/02/2015 49582-YURUEXE NAIL, 6 OR MORE 05/24/2015 76551-JSIKZNY NAIL, 6 OR MORE 04/19/2019 64378-FGDBAJG NAIL, 6 OR MORE 06/25/2018 69178-CWKQPIJ NAIL, 6 OR MORE 04/13/2018 27351-XZYYIAD NAIL, 6 OR MORE 06/12/2020 91444-FJYYMEZ NAIL, 6 OR MORE 11/09/2020 08348-PZLXIHL NAIL, 6 OR MORE 02/05/2021 41692-NPNROMM NAIL, 6 OR MORE 04/16/2021 87824-PSRTTHE NAIL, 6 OR MORE 10/01/2021 20973-GAAUCEY NAIL, 6 OR MORE 12/17/2021 94117-NJZKCJG NAIL, 6 OR MORE 03/07/2022 28775-MASCTAD NAIL, 6 OR MORE 05/23/2022 03186-LMOGEOF NAIL, 6 OR MORE 11/07/2022 35262-ZQLFYTI NAIL, 6 OR MORE 01/22/2023 10959-RGQPAEI NAIL, 6 OR MORE 04/16/2023 23107-YCXGNHH NAIL, 6 OR MORE 07/03/2023 83667-YBFIVTB NAIL, 6 OR MORE 09/04/2023 75580-IGUCBVH NAIL, 6 OR MORE 11/13/2023 43727-VXEAVSB NAIL, 6 OR MORE 01/26/2024 85838-YZJYWCV NAIL, 6 OR MORE 05/26/2014 62341-VONKJDJ NAIL, 6 OR MORE 03/02/2014 91730-BMLECRV NAIL, 6 OR MORE 12/08/2013 78899-NFGFADO NAIL, 6 OR MORE 07/12/2013 43848-MHNRKHK NAIL, 6 OR MORE 04/07/2013 12212-XOCEGKR NAIL, 6 OR MORE 10/15/2012 00156-YYKSBHM NAIL, 6 OR MORE 08/01/2022 50830-Kwryivop Plate 12/08/2013 33380-Ioxmsnoz Plate 03/02/2014 68756-Dadeeavh Plate 07/03/2023 98876-Shwbdmzs Plate 04/13/2018 40211-Wkzykruz Plate 01/20/2025 48030-Upeooqqq Plate 02/04/2019 60363-Aajzwrwb Plate 06/01/2012 26706-Rskjrbht Plate 02/03/2012 43622-Sbsfezpm Plate 06/17/2011 15167-Pymnwzvq Plate 09/16/2011 58956-Wlnauyls Plate 09/22/2013 64855-Iuycyxxj Plate 01/25/2013 86693-Wpnnqael Plate Each Additional 28726- Debride <25 sq cm 01/26/2024 34353 I&D ABSCESS- SIMPLE,SINGLE 024 89576 I&D ABSCESS- SIMPLE,SINGLE 017 16942, J0702- INJECT TENDON ORIGIN/INSER T 10/04/202433203, J0702- INJECT TENDON ORIGIN/INSER T 10/25/2024 96797-GMTD SKIN LESIONS, OVER 4 10/26/19 25 62213-XQRI SKIN LESIONS, OVER 4 07/20/19 25 83497-WQBV SKIN LESIONS, OVER 4 04/30/20 24 60022-TWLH SKIN LESIONS, OVER 4 01/21/20 25 41633-KYPB SKIN LESIONS, 2 TO 4 08/29/19 21 21989-SORH SKIN LESIONS, 2 TO 4 04/19/20 19 84694-FIRQ SKIN LESIONS, 2 TO 4 07/24/19 26778-XZBI SKIN LESIONS, 2 TO 4 06/25/19 89823-ZNCM SKIN LESIONS, 2 TO 4 02/04/20 17 25202-QPYZ SKIN LESIONS, 2 TO 4 04/13/20 18 19774-UMVV SKIN LESIONS, 2 TO 4 05/24/19 16 99096-YAUP SKIN LESIONS, 2 TO 4 08/02/19 16 82198-DRQW SKIN LESIONS, 2 TO 4 11/11/19 15 59244-UGAY SKIN LESIONS, 2 TO 4 03/09/20 15 92413-KIWP SKIN LESIONS, 2 TO 4 01/26/20 48586-EGCD SKIN LESIONS, 2 TO 4 11/13/19 69115-UPEB SKIN LESIONS, 2 TO 4 09/04/19 96686-DFKE SKIN LESIONS, 2 TO 4 07/03/19 10939-SBIW SKIN LESIONS, 2 TO 4 04/16/20 21979-DCBS SKIN LESIONS, 2 TO 4 01/23/20 23 25955-RAAK SKIN LESIONS, 2 TO 4 11/08/19 44610-ZBCX SKIN LESIONS, 2 TO 4 05/23/19 66843-CNNI SKIN LESIONS, 2 TO 4 03/07/20 08344-NMQP SKIN LESIONS, 2 TO 4 12/18/19 02882-OFIZ SKIN LESIONS, 2 TO 4 10/02/19 16706-QVSY SKIN LESIONS, 2 TO 4 04/16/20 29934-WZRT SKIN LESIONS, 2 TO 4 02/06/20 83832-BHFF SKIN LESIONS, 2 TO 4 11/10/19 21 53526-INZX SKIN LESIONS, 2 TO 4 06/12/19 47094-TQAZ SKIN LESIONS, 2 TO 4 02/03/20 18 14565-PUHX SKIN LESIONS, 2 TO 4 08/28/19 84147-MHWI SKIN LESIONS, 2 TO 4 02/05/20 55159-HACD SKIN LESIONS, 2 TO 4 06/28/19 61674-DXHG SKIN LESIONS, 2 TO 4 04/06/20 52518-BHLK SKIN LESIONS, 2 TO 4 02/03/20 08293-SIBW SKIN LESIONS, 2 TO 4 12/02/19 18266-NPME SKIN LESIONS, 2 TO 4 09/08/19 21843-ZUVE SKIN LESIONS, 2 TO 4 11/04/19 18 33677-AKTX SKIN LESIONS, 2 TO 4 08/28/19 18 79312-CUDH SKIN LESIONS, 2 TO 4 06/25/19 18 72595-BSQQ SKIN LESIONS, 2 TO 4 04/14/20 17 07886-VHVJ SKIN LESIONS, 2 TO 4 11/29/19 17 70921-YMEJ SKIN LESIONS, 2 TO 4 07/10/19 17 27621-TMNO SKIN LESIONS, 2 TO 4 09/20/19 17 43782-AKAD SKIN LESIONS, 2 TO 4 05/01/20 16 54588-KTNU SKIN LESIONS, 2 TO 4 09/23/19 14 85225-CMTF SKIN LESIONS, 2 TO 4 02/22/20 16 20595-VRBO SKIN LESIONS, 2 TO 4 12/21/19 16 29177-LCVK SKIN LESIONS, 2 TO 4 10/12/19 16 96451-MTBU SKIN LESIONS, 2 TO 4 08/26/19 15 19803-JRPZ SKIN LESIONS, 2 TO 4 09/16/19 12 68700-KTFJ SKIN LESIONS, 2 TO 4 06/17/19 12 88611-YOLA SKIN LESIONS, 2 TO 4 11/04/19 12 32307-VUSX SKIN LESIONS, 2 TO 4 02/03/20 12 67285-CDVS SKIN LESIONS, 2 TO 4 06/01/19 13 50578-RJXK SKIN LESIONS, 2 TO 4 01/26/20 13 65226-HAKP SKIN LESIONS, 2 TO 4 08/11/19 13 52364-SKHF SKIN LESIONS, 2 TO 4 08/02/19 23 18310-NPSD SKIN LESIONS, 2 TO 4 10/16/19 13 01012-BOUP SKIN LESIONS, 2 TO 4 04/07/20 13 82630-HRRJ SKIN LESIONS, 2 TO 4 03/02/20 14 22550-PHJJ SKIN LESIONS, 2 TO 4 05/26/19 15 40531-NHIC SKIN LESIONS, 2 TO 4 12/09/19 14 05053-PNRW SKIN LESIONS, 2 TO 4 07/12/19 14 03592, G7144-KFPZT/INJECT, JOINT/BURSA 1 05/31/201340113, W6701-VNLWC/INJECT, JOINT/BURSA 0 08/25/201484850, H8345-ZQJCD/INJECT, JOINT/BURSA 0 02/02/201854128, W1296-MSJKG/INJECT, JOINT/BURSA 0 11/07/2022 32121, N2161-JAIIO/INJECT, JOINT/BURSA 0 11/13/2023 52400, J5133-UMGDZ/INJECT, JOINT/BURSA 0 06/25/2018 77443, D2381-BNTHM/INJECT, JOINT/BURSA 0 09/14/2024 Next Appt Details Provider Name:Tanner Tamayo , 05/02/2025 02:30:00 PM, [address] [facility], [address], [place], [address], Insurance Providers Payer Name Payer Address Payer Phone Subscriber Number Group Number Insured Name Patient Relationship to Insured Coverage Start Date Coverage End Date Medicare National Govt [employer] [address] [facility] [address] [id number] Coy Garza Self - patient is the insured [employer] ([employer]) [address] [place] [address] [phone] [id number] Coy Garza Self - patient is [...] 01/2016 [facility]- MRI for herniated disc 02/24/15 [facility]- Tendon surgery right middle finger 08/29/14 [facility] Chest Pain 06/26/11
--- OUTSIDE RECORDS SUMMARY | 2025-02-21 14:29 | XMS_ITS | Clinical Summary ---
Author Organization [facility] Address [address] [facility] [address] [place] [address] Phone Care Team Providers Care Hvac Service Tech Name Role Phone Ulysses Escalante MD Primary Care Provider [phone] Eduard Mendoza MD Unavailable Allergies Active Allergy Reactions Criticality Noted Date Comments Bee Pollen 06/13/2017 Medications metFORMIN (GLUCOPHAGE) 1000 MG tablet Take 1,000 mg by mouth 2 (two) times a day with meals. Active pravastatin (PRAVACHOL) 40 MG tablet Take 40 mg by mouth daily. Active Bacillus coagulans-inuli n 1 billion-250 cell-mg Cap Take 250 mg by mouth daily. Active blood-glucose meter,continuou s (DEXCOM G7 INDUSTRIAL SAFETY AND HEALTH MANAGER) MiscIndications :Type 2 diabetes mellitus with peripheral neuropathy Use as directed to monitor glucose 1 each 023 Active LANTUS SOLOSTAR U-100 INSULIN 100 unit/mL (3 mL) InPn injection penIndications: Type 2 diabetes mellitus with peripheral neuropathy Inject 60 Units under the skin daily. 60 mL 3 023 Active blood-glucose sensor (DEXCOM G7 SENSOR) DeviIndications :Type 2 diabetes mellitus with peripheral neuropathy USE DIRECTED TO MONITOR GLUCOSE, CHANGE EVERY 10 DAYS 9 each 3 024 Active losartan (COZAAR) 50 MG tablet Take 25 mg by mouth daily. Active CALCIUM-MAGNESI UM-ZINC ORAL Take by mouth. Ac tive doxycycline monohydrate (ADOXA) 50 MG tablet Take 50 mg by mouth daily. Active ADMELOG SOLOSTAR U-100 INSULIN 100 unit/mL injection penIndications: Type 2 diabetes mellitus with peripheral neuropathy INJECT 30-35 UNITS, SUBCUTANEOUSLY, 3 TIMES A DAY BEFORE MEALS PLUS 2 UNITS TO PRIME NEEDLE WITH EACH DOSE 60 mL 1 025 Active tirzepatide (MOUNJARO) 5 mg/0.5 mL PnIj subcutaneous penIndications: Type 2 diabetes mellitus with peripheral neuropathy INJECT 0.5 ML (5 MG TOTAL) UNDER THE SKIN ONE TIME PER WEEK 2 mL 5 025 Active OZEMPIC 2 mg/dose (8 mg/3 mL) subcutaneous injection penIndications: Type 2 diabetes mellitus with peripheral neuropathy INJECT 2 MG SUBCUTANEOUSLY EVERY 7 DAYS 3 mL 5 025 2024 Discontinued tirzepatide (MOUNJARO) 5 mg/0.5 mL PnIj subcutaneous penIndications: Type 2 diabetes mellitus with peripheral neuropathy Inject 0.5 mL (5 mg total) under the skin once a week. 2 mL 1 025 2024 Discontinued Active Problems Problem Noted Date Diagnosed Date [...] with glycemic control. Up to date with arnav. Assessment & Plan (12/09/2022 4:42 PM EDT): [...] nail care good. BP under reasonable control. intermediate manager current use of insulin intermediate manager current use of oral hypoglycemic drug Long-term [...] Encounters Date Type Department Care Team Description 02/17/2025 2:17 PM EDT - 02/17/2025 11:59 PM EDT Hospital Encounter [facility], [address] [address] Discharge Disposition: Home or Self Care 02/15/2025 Ancillary Orders DF IMG OUTSIDE IMG [address] [place] [address] Ricky Beltran MD, MPH 02/11/2025 Orders Only [facility], [address] [place] [address] Ricky Beltran MD, MPH Malignant neoplasm of urinary bladder, unspecified site (Primary Dx) 02/08/2025 Refill [facility] [address] [place] [address] Jailene Yap MD Medication Refill 01/07/2025 Refill [facility] [address] [place] [address] [place] [address] Jailene Yap MD Medication Refill 12/28/2024 Orders Only [facility] [address] [place] [address] Jailene Yap MD 12/28/2024 Telephone G Endocrinology [address] [place] [address] [place] [address] Jailene Yap MD PCP Recommendation? (PCP Recommendation?) 12/06/2024 Ancillary Procedure DF IMG OUTSIDE IMG [address] [place] [address] Ricky Beltran MD, MPH 11/29/2024 4:00 PM EDT Office Visit [facility] [address] [place] [address] Jailene Yap MD Type 2 diabetes mellitus with peripheral neuropathy (Primary Dx); Type 2 diabetes mellitus with retinopathy, with long-term current use of insulin, macular edema presence unspecified, unspecified laterality, unspecified retinopathy severity; Type 2 diabetes mellitus with microalbuminuria; Long-term current use of injectable noninsulin antidiabetic medication; intermediate manager current use of oral hypoglycemic drug; intermediate manager current use of insulin 11/29/2024 Orders Only [facility] [address] [place] [phone] Provider, MD Manas from Last 3 Months [...] 12:15 PM EDT Administrative Encounter Central Registration, [facility] at [address] [address] Ricky Beltran MD, MPH [address] [place] [phone] [email or web address] 03/01/2025 1:00 PM EDT Office Visit [facility], [facility] at [address] [address] Ricky Beltran MD, MPH [address] [place] [address] [email or web address] 05/30/2025 1:40 PM EST Office Visit [facility] Endocrinology [address] [phone] Jailene Yap MD [address] [place] [phone] Health Maintenance Due Date Last Done Comments Adult Td,Tdap Booster 1958 DEPRESSION SCREENING 1970 HEPATITIS C SCREENING 1976 PNEUMOCOCCAL VACCINES (50+ years) (1 of 2 - PCV) 1977 SMOKING STATUS SCREENING (On ce After 26 Yrs) 1984 COLOGUARD 10/28/2003 COLONOSCOPY 10/28/2003 COLORECTAL CANCER SCREENING 10/28/2003 FIT TEST 10/28/2003 FOBT 10/28/2003 SIGMOIDOSCOPY 10/28/2003 VIRTUAL COLONOSCOPY 10/28/2003 RSV VACCINE (1 - Risk 50-74 years 1-dose series) 2008 DIABETIC EYE EXAM 11/23/2024 11/24/2023, 11/12/2023 HEMOGLOBIN A1C 11/28/2024 05/31/2024 INFLUENZA VACCINE (#1) 2024 , 02/19/2022, 04/23/2021 COVID-19 VACCINE (3 - 2024-2 6 season) 2025 02/12/2021, 01/09/2021 CREATININE LEVEL 05/31/2025 05/31/2024, 12/21/2023, 12/09/2022 POTASSIUM LEVEL 05/31/2025 05/31/2024, 12/21/2023, 12/09/2022 BLOOD PRESSURE 06/01/2025 11/29/2024 ZOSTER VACCINES Completed 02/19/2022, 11/21/2021 HEPATITIS A VACCINES Aged Out No long [...] Name Priority Date/Time Associated Diagnosis Comments OUTSIDE PATHOLOGY 02/02/2025 OUTSIDE PATHOLOGY 02/02/2025 OUTSIDE PROCEDURE 02/02/2025 OUTSIDE IMAGING 01/27/2025 NM PET WHOLE BODY OUTSIDE (NO INTERPRETATION) Routine 12/06/2024 12:00 AM EDT OUTSIDE IMAGING 12/06/2024 HEMOGLOBIN A1C Routine 05/31/2024 4:02 PM EST Type 2 diabetes mellitus with peripheral neuropathy BASIC METABOLIC PANEL Routine 05/31/2024 4:02 PM EST Type 2 diabetes mellitus with peripheral neuropathy from Last 3 Months or Most Recently Relevant to Health Maintenance Results * Outside Procedure (02/02/2025) us Scanning Interface Provider PROCEDURE/MINOR SURG ICAL PERFORMABLES Final Result * Outside Pathology (02/02/2025) Only the most recent of2 resultswithin the time period is included. us Scanning Interface Provider PATHOLOGY ORDERABLES Final Result * Outside Imaging Report Only (01/27/2025) us Scanning Interface Provider IMG XR CHEST Elis l Result * Outside Imaging Report Only (12/06/2024) us Scanning Interface Provider IMG XR CHEST Elis l Result * NM PET Whole Body Outside (No Interpretation) (12/06/2024 12:00 AM EDT) Other Narrative [facility] - 02/15/2025 8:10 AM EDT This study is for PACS storage only and not for interpretation. us Ricky Beltran MD, MPH IMG OUTSIDE IMAGING W/O UT INTERPRETATION Final Result [facility] * (ABNORMAL) Hemoglobin A1c (05/31/2024 4:02 PM EST) Pathologist [facility] HEMOGLOBIN A1C 6.4(H) 4.3 - 5.8 % [facility] Blood 05/31/2024 4:02 PM EST 05/31/2024 4:03 PM EST us Jailene Yap MD LAB BLOOD ORDERABLES F inal Result [facility] [address] [place] [address] * (ABNORMAL) Basic metabolic panel (05/31/2024 4:02 PM EST) SODIUM 143 133 - 146 mmol/L [facility] CHLORIDE 104 96 - 108 mmol/L [facility] POTASSIUM 4.3 3.3 - 5.1 mmol/L [facility] CO2 25 21 - 35 mmol/L [facility] BUN 21(H) 6 - 19 mg/dL [facility] CREATININE 1.10 0.5 - 1.5 mg/dL [facility] GLUCOSE 136(H) 70 - 99 mg/dL [facility] CALCIUM 9.9 8.4 - 10.3 mg/dL [facility] EGFR 74 >59 mL/min/1.7 3m2 [facility] Comment:Estimated glomerular filtration rate calculated using the CKD-EPI refit equation. ANION GAP 18 10 - 20 mmol/L [facility] Blood 05/31/2024 4:02 PM EST 05/31/2024 4:03 PM EST us Jailene Yap MD LAB BLOOD ORDERABLES F inal Result [facility] [address] [place] [address] from Last 3 Months or Most Recently Relevant to Health Maintenance [place] [address] [place] [address] [employer] MEDICARE SUPPLEMENT MEDICARE PART A & B [facility] MEDICARE SUPPLEMENT MEDICARE PART A & B [facility] MEDICARE SUPPLEMENT [facility] MEDICARE SUPPLEMENT [facility] MEDICARE SUPPLEMENT MEDICARE PART A & B [employer] [facility] [employer]ION MEDICARE SUPPLEMENT MEDICARE PART A & B [employer] [facility] MEDICARE SUPPLEMENT MEDICARE PART A & B [email or web address] MEDICARE SUPPLEMENT [employer] [facility] MEDICARE SUPPLEMENT MEDICARE PART A & B Care Teams Hvac Service Tech Relationship Specialty Start Date End Date Ulysses Escalante MD [address] [place] [id number] PCP - General Internal Medicine 09/13/14 Eduard Mendoza MD [address] [place] [address] [email or web address] Referring Physician Urology 02/11/25 Additional Source Comments The information contained in this document represents components of the legal health record. It is not the complete legal health record.[facility]
--- OUTSIDE RECORDS SUMMARY | 2025-02-21 14:29 | XMS_ITS | Clinical Summary ---
Author Organization [facility] ter Address [address] [place] [address] Phone Care Team Providers Care Real Estate Specialist Name Role Phone Ulysses Escalante MD Primary Care Provider [phone] Encounters Date Type Department Care Team Description 01/07/2025 Lab Requisition [facility] [address] [place] [phone] Eduard Mendoza MD Malignant neoplasm of dome of bladder ([facility]/HCC V24, CMS/HCC V28); Urinary tract infection, site not specified 12/30/2024 Lab Requisition [facility] [address] [place] [phone] Sukumar Devlin MD Urinary tract infection, site not specified from Last 3 Months Medical History Medical History Date Comments DJ on CPAP DX:JD on CPAP Social History [...] Health Maintenance Due Date Last Done Comments Colorectal Cancer Screening: Colonoscopy 1958 Diabetes: Annual GFR (Glomerular Filtration Rate) 1958 Diabetes: Annual Foot Exam 1968 Diabetes: Annual Retina Eye Exam 1968 DTaP,Tdap,and Td Vaccines (1 - Tdap) 1977 Pneumococcal Vaccine: 50+ Years (1 of 1 - PCV) 2008 RSV Immunization Adult Patients (1 - Risk 60-74 years 1-dose series) 2018 Cholesterol Screening (Lipid Panel) 04/27/2022 Hepatitis C Screening 04/27/2022 Medicare Annual [...] EDT Malignant neoplasm of dome of bladder ([facility] V24, [facility] V28) Urinary tract infection, site not specified CULTURE URINE Routine 12/30/2024 12:00 AM EDT Urinary tract infection, site not specified from Last 3 Months Results * Culture urine (01/07/2025 12:00 AM EDT) Only the most recent of2 resultswithin the time period is included. Culture, Urine No growth 01/08/2025 1:47 PM EDT [facility] Urine Urine specimen obtained by clean catch procedure / Unknown 01/07/2025 01/07/2025 6:08 PM EDT us Eduard Mendoza MD LAB MICROBIOLOGY - GENERAL KRYSTEN TELLES Final Result [facility] [address] [place] [address], from Last 3 Months Insurance MEDICARE UNICARE Care Teams Real Estate Specialist Relationship Specialty Start Date End Date Ulysses Escalante MD [address] [place] [id number] PCP - General Internal Medicine 10/05/13
--- OUTSIDE RECORDS SUMMARY | 2025-02-21 14:29 | XMS_ITS | Encounter Summary ---
Author Organization [facility] Address [address] [place] [address] Care Team Providers Care Black Jack Dealer Name Role Phone Ulysses Escalante MD Primary Care Provider + [phone] Encounter Details Date Type Department Care Team (Late st Contact Info) Description 12/30/2024 Lab Requisition [facility] [address] [facility] [place] [address] Sukumar Devlin MD [address] [facility] [address] [place] [phone] Urinary tract infection, site not specified Social [...] Urine No growth 12/31/2024 1:34 PM EDT [facility] Urine Topography unknown / Unknown 12/30/2024 12/30/2024 5:43 PM EDT us Sukumar Devlin MD LAB MICROBIOLOGY - GENERAL ORD ERABLES Final Result [facility] ([facility] [address] [place] [address], documented in this encounter Visit Diagnoses Diagnosis Urinary tract infection, site not specified documented in this encounter Care Teams Black Jack Dealer Relationship Specialty Start Date End Date Ulysses Escalante MD [address] [place] [address] PCP - General Internal Medicine 10/05/13 documented as of this encounter
== END 2025-02-21 12:01 | disposition home or self-care (01) ==
LOC: HO.HMGAL 11:57
PROVIDERS: PCP Internal Medicine; Visit Provider Registered Nurse Emergency
DX: J30.89 Other allergic rhinitis (principal)
CPT/HCPCS: 95117; 95165